=== PATIENT | male | born 1970 | race Caucasian/White ===

== ENCOUNTER 2023-12-02 10:11 | Emergency (ER) | payer OTHER ==
[~2023-12-02] VITALS: Ht 165.1 cm; Wt 90.7 kg
[2023-12-02 13:29] VITALS: BP 171/133
== END 2023-12-02 13:55 | disposition home or self-care (01) ==
LOC: ER 10:11
DX: F32.9 Major depressive disorder, single episode, unspecified (principal); F14.90 Cocaine use, unspecified, uncomplicated; F10.239 Alcohol dependence with withdrawal, unspecified; F41.9 Anxiety disorder, unspecified; F10.20 Alcohol dependence, uncomplicated; Z88.8 Allergy status to other drugs, medicaments and biological substances

== ENCOUNTER → 2024-01-01 | Outpatient (CLI) | payer OTHER ==
[~2024-01-01] MED LIST: ALBU90OI INH; CHLO25 PO; Crestor20 MG PO; EZET10 PO; FINA5 PO; HYDHCL25 PO; LEVOTHYROXINE100 M10 PO; ONDA4ODT MM; PANT40 PO; REXULTI1 MG PO
[2024-01-01 15:56] LABS: Adenovirus F 40/41 Not Detected (NOT DETECT); Astrovirus Not Detected (NOT DETECT); Campylobacter Sp Not Detected (NOT DETECT); Cryptosporidium Not Detected (NOT DETECT); Cyclospora Cayetanensis Not Detected (NOT DETECT); E. Coli O157 Not Detected (NOT DETECT); Entamoeba Histolytica Not Detected (NOT DETECT); Enteroaggregative E. coli-EAEC Not Detected (NOT DETECT); Enteropathogenic E. coli-EPEC Not Detected (NOT DETECT); Enterotoxigenic E. coli-ETEC Not Detected (NOT DETECT); Giardia Lamblia Not Detected (NOT DETECT); Norovirus GI/GII Not Detected (NOT DETECT); Plesiomonas Shigelloides Not Detected (NOT DETECT); Rotavirus A Not Detected (NOT DETECT); Salmonella Sp Not Detected (NOT DETECT); Sapovirus Not Detected (NOT DETECT); Shiga Toxin-prod E. coli-STEC Not Detected (NOT DETECT); Shigella/Enteroin E. coli-EIEC Not Detected (NOT DETECT); Vibrio Cholerae Not Detected (NOT DETECT); Vibrio Sp Not Detected (NOT DETECT); Yersinia Enterocolitica Not Detected (NOT DETECT)
[2024-01-03 17:51] LABS: CALPROTECTIN,FECAL 58 ug/g (<=49)
== END ==
LOC: LAB SHORT 02:45 → LAB 02:45
PROVIDERS: Physician Assistant Medical
DX: R10.32 Left lower quadrant pain (principal); R19.5 Other fecal abnormalities
CPT/HCPCS: 83993; 87507

== ENCOUNTER 2024-01-14 13:22 | Inpatient (IN) | payer OTHER ==
[~2024-01-14] VITALS: Ht 165.1 cm; Wt 88.7 kg
[2024-01-14] MEDS ORDERED: Ondansetron HCl 2 MG / ML 2ML Vial IV ONE (13:35)
[2024-01-14] MEDS ORDERED: Diazepam 5 MG / ML 2ML SYR IV ONE ×3 (13:35→16:10)
[2024-01-14] MEDS ORDERED: PHENobarbitaL sodium 130 MG/ML VIAL IV ONE ×3 (13:35→16:10)
[2024-01-14] MEDS ORDERED: NS 1,000 ML IV SCH ×2 (13:35→16:10)
[2024-01-14] MEDS ORDERED: EZET10 PO (13:43)
[2024-01-14] MEDS ORDERED: FINA5 PO (13:43)
[2024-01-14 13:49] LABS: BASOPHILS ABSOLUTE AUTO 0.11 K/mm3 (0.00-0.23); BASOPHILS PERCENT AUTO 1 % (0-2); EOSINOPHILS PERCENT AUTO 0 % (0-6); Hematocrit 47.1 % (37.0-53.0); Hemoglobin 16.6 g/dL (13.5-17.5); IMMATURE GRAN ABSOLUTE AUTO 0.02 K/mm3 (0.00-0.10); IMMATURE GRAN PERCENT AUTO 0 % (0-1); LYMPHOCYTES ABSOLUTE AUTO 0.49 K/mm3 (0.84-5.20); LYMPHOCYTES PERCENT AUTO 5 % (21-46); MONOCYTES ABSOLUTE AUTO 0.65 K/mm3 (0.16-1.47); MONOCYTES PERCENT AUTO 7 % (4-13); Mean Corpuscular HGB 32.5 pg (26.0-34.0); Mean Corpuscular HGB Conc 35.2 g/dL (31.5-36.5); Mean Corpuscular Volume 92 fL (80-100); Mean Platelet Volume 9.6 fL (9.1-12.4); NEUTROPHILS ABSOLUTE AUTO 7.92 K/mm3 (1.96-9.15); NEUTROPHILS PERCENT AUTO 86 % (41-73); Platelet Count 273 K/mm3 (150-400); RDW Coefficient Variation 13.4 % (11.7-14.2); RDW Standard Deviation 46.1 fL (35.1-46.3); Red Blood Cell Count 5.11 M/mm3 (4.30-5.90); White Blood Cell Count 9.19 K/mm3 (4.00-11.30)
[2024-01-14 14:14] LABS: Albumin, Blood 4.1 g/dL (3.4-5.0); Bilirubin, Total 0.7 mg/dL (0.1-1.0); Bun/Creatinine Ratio 12.6 (12.0-20.0); Creatinine, Blood 0.64 mg/dL (0.60-1.20); Globulin, Blood 4.1 g/dL (2.2-4.0); Potassium, Blood 3.4 mmol/L (3.5-5.5); Total Protein, Blood 8.2 g/dL (6.4-8.2)
[2024-01-14] MEDS ORDERED: Etomidate 2MG / ML 10ML Vial XX ONE (17:02)
[2024-01-14] MEDS ORDERED: Rocuronium Bromide 10 MG/ML 5ML Injection IV ONE ×2 (17:02→22:50)
[2024-01-14] MEDS ORDERED: Lactated Ringer's 1,000 ML IV SCH (17:05)
[2024-01-14] MEDS ORDERED: Ondansetron HCl 2 MG / ML 2ML Vial IV PRN (17:10)
[2024-01-14] MEDS ORDERED: Metoclopramide HCl 5MG / ML 2ML Vial IV PRN (17:10)
[2024-01-14] MEDS ORDERED: LORazepam 2 MG/ML 1ML Injection IV PRN ×2 (17:10→17:15)
[2024-01-14] MEDS ORDERED: ChlordiazePOXIDE 25 MG Cap PO PRN ×2 (17:10)
[2024-01-14] MEDS ORDERED: Potassium Chloride 20 MEQ TabCR PO ONE (17:10)
[2024-01-14] MEDS ORDERED: Albuterol HFA200 ACT/6.7 GM INH INH PRN (17:20)
[2024-01-14] MEDS ORDERED: Magnesium Sulf 2 GM/Water 50ML 50 ML IV ONE (17:20)
[2024-01-14] MEDS ORDERED: Labetalol HCL 5 MG/ML 4ML Injection (Single Dose) IV PRN (17:20)
[2024-01-14] MEDS ORDERED: Folic Acid 1 MG in NS 50 ML IV SCH (18:00)
[2024-01-14] MEDS ORDERED: Lisinopril 5 MG Tab PO SCH (18:00)
[2024-01-14 18:13] VITALS: BP 189/24
[2024-01-14] MEDS ORDERED: NS 250 ML IV PRN (18:25)
[2024-01-14] MEDS ORDERED: Thiamine HCl 100 MG in NS 50 ML IV SCH (18:30)
--- NOTE | 2024-01-14 19:21 | NUR ---
PCU ADMIT / END OF SHIFT PT BROUGHT TO PCU-11 BY GIANNA FROM ER SHORTLY AFTER 1800. PT ONLY ABLE TO REMAIN AWAKE FOR SHORT TIME, PT WILL BE MIDSENTENCE THEN FALL ASLEEP SNORING. PT BP ELEVATED, MEDICATED W/ PRN IV LABETALOL PER EMAR. SPO2 > 92% ON 4L NC. MONITOR SHOWING SR-ST, HR 90s-110s. PT DISORIENTED TO DATE, OTHERWISE ORIENTED. PT RESTLESS IN BED & FIDGETING W/ CORDS/LINES WHEN AWAKE. PT W/ PROFUSE SWEATING FROM FOREHEAD & BODY. ARMS & HANDS NOTED TO BE TREMULOUS, COOL & CLAMMY. CBG CHECKED. PT C/O NAUSEA. PT MEDICATED W/ PRN IV ATIVAN & PO LIBRIUM PER EMAR/CIWA PROTOCOL. PT NOT CONFIRMING ALCOHOL CONSUMPTION W/ THIS NURSE, BUT RESPONDING WITH "I DRINK TOO MUCH." PT FURTHER STATING "I KNOW I HAVE TO STOP DRINKING. I HAVE GOTTEN TO A POINT WHERE I'M NOT FUNCTIONAL. I KNOW I HAVE TO STOP." PT FURTHER STATES "I'VE WITHDRAWN BEFORE, BUT NEVER THIS BAD. I'M SO SORRY. I'M SO EMBARASSED. THANK YOU FOR EVERYTHING. I DON'T TAKE ANYTHING FOR GRANTED." PT DENIES HAVING ANY FRIENDS OR FAMILY, BUT THEN STATES HAVING A BROTHER HE JUST GOT IN CONTACT WITH AFTER YEARS OF NO CONTACT. PT NOW SLEEPING IN , BED ALARM ON. REPORT GIVEN TO GLOST KILN OPERATOR RN.
[2024-01-14 20:01] VITALS: BP 177/123
[2024-01-14 20:22] LABS: U Amphetamine Screen Not Detected; U Barbituate Screen DETECTED; U Benzodiazapine Screen DETECTED; U Buprenorphine Screen DETECTED; U Cannabinoids Screen Not Detected; U Cocaine Screen Not Detected; U Methadone Screen Not Detected; U Methamphetamine Screen Not Detected; U Opiates Screen Not Detected; U Oxycodone Screen Not Detected; U Phencyclidine Screen Not Detected
[2024-01-14] MEDS ORDERED: Ezetimibe 10 MG Tab PO SCH (21:00)
[2024-01-14 23:43] VITALS: BP 136/115
[2024-01-15] VITALS (21 sets, daily range): BP systolic 82–150; BP diastolic 62–115
[2024-01-15 05:06] LABS: Albumin, Blood 3.6 g/dL (3.4-5.0); Bilirubin, Total 0.9 mg/dL (0.1-1.0); Bun/Creatinine Ratio 11.8 (12.0-20.0); Calcium, Blood 8.7 mg/dL (8.5-10.1); Creatinine, Blood 0.93 mg/dL (0.60-1.20); Globulin, Blood 3.5 g/dL (2.2-4.0); Potassium, Blood 3.8 mmol/L (3.5-5.5); Total Protein, Blood 7.1 g/dL (6.4-8.2)
[2024-01-15] MEDS ORDERED: Etomidate 2MG / ML 10ML Vial IV ONE (05:46)
[2024-01-15] MEDS ORDERED: SuccINYLCHOLINE Chloride 100 MG/5 ML 5MLSYR IV ONE (05:46)
[2024-01-15] MEDS ORDERED: Rocuronium Bromide 10 MG/ML 5ML Injection IV ONE (05:46)
[2024-01-15] MEDS ORDERED: Levothyroxine Sodium 0.1 MG Tab PO SCH (06:00)
[2024-01-15] MEDS ORDERED: Pantoprazole Sodium 40 MG Tab PO SCH (06:00)
--- NOTE | 2024-01-15 06:00 | NUR ---
SHIFT SUMMARY PATIENT ALERT AND ORIENTED X3, UNSURE OF DATE. PATIENT DENIES HAVING ANY PAIN OR SHORTNESS OF BREATH. WAS MEDICATED PER EMAR FOR CIWA OF 19 AT THE BEGINNING OF SHIFT AND SLEPT ALL NIGHT, WAKING EASILY TO VOICE. WHEN PATIENT IS AWAKE HE IS VERY DROWSY, FALLING ASLEEP IN THE MIDDLE OF TRYING TO DO THINGS SUCH TALK OR DRINKING WATER. PATIENT HAS BEEN HAVING DIFFICULTY URINATING AND HAS TO STRAIN TO INITIATE A STREAM. SITTER IN PLACE WITH THE PATIENT DUE TO THAT WHEN HE IS AWAKE, HE IS IMPULSIVE AND TRIES TO GET OUT OF BED ON HIS OWN. PATIENT IS CURRENTLY ON 6 LITERS O2 VIA NC, SPO2 >90%. VITAL SIGNS STABLE. WILL CONTINUE TO MONITOR. CALL LIGHT WITHIN REACH.
[2024-01-15] MEDS ORDERED: Enoxaparin 40 MG/0.4 ML SYR SC SCH (09:00)
[2024-01-15] MEDS ORDERED: Finasteride 5 MG Tab PO SCH (09:00)
[2024-01-15] MEDS ORDERED: Rosuvastatin Calcium 10 MG Tab PO SCH (09:00)
[2024-01-15] MEDS ORDERED: Albuterol 2.5 MG/3 ML VIAL INH SCH (16:00)
--- NOTE | 2024-01-15 16:05 | NUR ---
SHIFT SUMMARY: PATIENT IS A&OX3, HE IS FORGETFUL OF THE DATE. PATIENT IS CURRENTLY ON CIWA PROTOCOL AND HAS BEEN SCORING BETWEEN 11-13 THROUGHOUT SHIFT. PATIENT WAS MEDICATED WITH PO LIBRIUM AND IV ATIVAN PER CIWA EMAR ORDERS AND CIWA SCORING. PATIENT AWAKENS EASILY TO VERBAL STIMULI BUT IS VERY DROWSY AND FALLS ASLEEP IN THE MIDDLE OF CONVERSATION. AVASURE CAMERA HAS BEEN PLACED IN THE PATIENTS ROOM A SAFETY PRECAUTION DUE TO PATIENT BEING AT TIMES IMPULSIVE WHEN ABRUPTLY WOKEN UP. PATIENT IS A SBA WHEN STANDING TO USE THE URNAL. HE IS VOIDING AND IS TOLERATING PO INTAKE. PATIENT HAS A HX OF YVROSE BUT IS NOT COMPLIANT WITH CPAP, SO HE IS CURRENTLY ON 6L OF OXYGEN NC WITH >90% OXYGEN SATS. PATIENT HAS AN EXPIRATORY WHEEZE BUT HAS SCHEDULED NEBULIZER ALBUTEROL PER EMAR. PATIENT IS LAYING IN BED WITH CALL LIGHT IN REACH AND AVASURE CAMERA MONITOR IN PLACE.
[2024-01-15] MEDS ORDERED: Metoprolol Tartrate 25 MG Tab PO SCH (21:00)
--- NOTE | 2024-01-15 21:05 | NUR ---
ASSUMED CARE OF PT. PT TO ICU 5 FROM PCU. HE IS ABLE TO RESPOND TO HIS NAME BUT ONLY IN A STARTLE AND THEN GOES LIMB AGAIN. HE IS ON TH BIPAP AND ABG IS ORDERED. PT TACHYCARDIC AND RR 8-12. PT SAO2 100%. PT HAS A DISTENDED ABD. CLEAR LUNG SOUNDS T/O. NO NOTIBLE EDEMA AT THIS TIME. SKIN WARM, DRY ON CONTACT. PT HAS ONE PERIPHERAL IV TO RIGHT FA. PLAN TO PLACE POWERGLIDE ST TO RIGHT UPPER ARM. DR DICKERSON AND DR TALBERT CALLED TO COME TO BEDSIDE D/T PT BEING OBTUNDED AND NOT ABLE TO MAINTAIN SAFE AIRWAY.
[2024-01-15 21:19] LABS: PCO2 Arterial 64.2 mmHg (35-45); PO2 Arterial 240 mmHg (80-100)
[2024-01-15 21:20] LABS: pH Blood Arterial 7.26 (7.35-7.45)
--- NOTE | 2024-01-15 21:24 | NUR ---
ICU TRANSFER DURING INITIAL ASSESSMENT AT 1919 PATIENT WAS DROWSY, WAKING UP AND TRYING TO GET OUT OF BED BUT FALLING ASLEEP WHILE DOING SO. TOOTH CUTTER CONTACT [facility], HAD SCORED PATIENT A CIWA OF 18, MEDICATED PER EMAR. PATIENT WAS ON 6 LITERS O2 VIA NASAL CANULA. AROUND 1999 PATIENT BEGAN DESATING AND WAS NOTED TO BE HAVING APNIC EPISODES. TOOTH CUTTER CONTACT WHEEL AND RT NOTIFIED, PATIENT PLACED ON SIMPLE MASK AND OXYGEN INCREASED TO 15 LPM. PATIENT CONTINUED TO HAVE APNIC EPISODES REQUIRING STERNAL RUB TO MAINTAIN SPO2 AT 90%. CALLED RT TO BEDSIDE WHO ATTEMPTED TO PLACE PATIENT ON A CPAP AT FIRST AND WAS THEN TRANSFERRED TO BIPAP. TOOTH CUTTER CONTACT [facility], NOTIFIED NICKO DICKERSON OF THE SITUATION. ORDER OBTAINED FOR BIPAP, AND NICKO VORA ORDERED FOR THE PATIENT TO BE TRANSFERRED TO ICU FOR PRECIDEX.
--- NOTE | 2024-01-15 21:37 | NUR ---
INTUBATION: 20 ETOMIDATE @ 2142, 50 ROCC @ 2142. INTUBATED @ 2042, 22CM @ TEETH, 8.5. POSITIVE COLOR CHANGE AND DECREASED BREATH SOUNDS ON LEFT . BP 125/90, SPO2 100%.
[2024-01-15] MEDS ORDERED: propofoL 100 ML IV ONE (21:47)
[2024-01-15] MEDS ORDERED: propofoL 100 ML IV SCH (21:50)
[2024-01-15] MEDS ORDERED: Albuterol 2.5 MG/3 ML VIAL INH PRN (22:05)
[2024-01-15] MEDS ORDERED: Ipratropium/Albuterol SulF 2.5-0.5MG/3 ML Amp INH SCH (22:05)
[2024-01-15 22:15] LABS: Source, Urine Foley catheter
--- NOTE | 2024-01-15 22:16 | NUR ---
POST INTUBATION. CHEST X-RAY DONE .. ETT PULLED BACK TO 24 AT TEETH. OG PUSHED DEEPER.. DOWN TO 3RD BLACK LINE ON OG TUBING. GLASS PLACED .. URINE UA SENT.. URINE YELLOW IN COLOR. PT AFEBRILE TEMP 96.6. VENT SETTING AC/VC 20, 450, 50% PEEP 10... RESTRAINTS ABLIDE TO UPPER WRIST BILAT. AT 2200. D/T INTUBATION.
[2024-01-15 22:26] LABS: Appearance, Urine Clear (Clear); Bilirubin, Urine Neg (Neg); Blood, Urine Neg (Neg); Color, Urine Yellow (P-Yellow); Glucose Qualitative, Urine Neg (Neg); Ketones, Urine Neg (Neg); Leukocyte Esterase, Urine Neg (Neg); Nitrite, Urine Neg (Neg); Protein, Urine 1+ (Neg); Specific Gravity, Urine 1.015 (1.003-1.022); Urobilinogen, Urine NORM (Normal)
[2024-01-16] VITALS (59 sets, daily range): BP systolic 75–152; BP diastolic 48–104
[2024-01-16] MEDS ORDERED: Hydrogen Peroxide 1.5 % Solution MT SCH
--- NOTE | 2024-01-16 02:33 | NUR ---
UPDATE PT'S BP MAP HAS HELD AT 70'S TILL 0200. MAP HAS DROPPED TO 57. PT'S OUT PUT DROPPED TO 20 CC FOR LAST [address] TALBERT AND HE ORDERED AN LR BOLUS OF 500CC. IF MAP STAYS BELOW 65 I AM INSTRUCTED TO CALL DR TALBERT BACK FOR FURTHER ORDERS.
[2024-01-16] MEDS ORDERED: Lactated Ringer's 500 ML IV ONE (02:35)
[2024-01-16 04:01] LABS: BASOPHILS ABSOLUTE AUTO 0.07 K/mm3 (0.00-0.23); BASOPHILS PERCENT AUTO 1 % (0-2); EOSINOPHILS ABSOLUTE AUTO 0.16 K/mm3 (0.00-0.68); EOSINOPHILS PERCENT AUTO 2 % (0-6); Hematocrit 35.3 % (37.0-53.0); Hemoglobin 12.2 g/dL (13.5-17.5); IMMATURE GRAN ABSOLUTE AUTO 0.03 K/mm3 (0.00-0.10); IMMATURE GRAN PERCENT AUTO 0 % (0-1); LYMPHOCYTES ABSOLUTE AUTO 0.49 K/mm3 (0.84-5.20); LYMPHOCYTES PERCENT AUTO 6 % (21-46); MONOCYTES ABSOLUTE AUTO 0.46 K/mm3 (0.16-1.47); MONOCYTES PERCENT AUTO 5 % (4-13); Mean Corpuscular HGB 33.4 pg (26.0-34.0); Mean Corpuscular HGB Conc 34.6 g/dL (31.5-36.5); NEUTROPHILS ABSOLUTE AUTO 7.65 K/mm3 (1.96-9.15); NEUTROPHILS PERCENT AUTO 86 % (41-73); NRBC ABSOLUTE 0.06 K/mm3 (0.00-0.02); NRBC Auto 0.7 /100 WBC (0.0-0.2); RDW Coefficient Variation 13.7 % (11.7-14.2); RDW Standard Deviation 48.4 fL (35.1-46.3); Red Blood Cell Count 3.65 M/mm3 (4.30-5.90); White Blood Cell Count 8.86 K/mm3 (4.00-11.30)
[2024-01-16 04:02] LABS: Mean Corpuscular Volume 97 fL (80-100)
[2024-01-16 04:04] LABS: Albumin, Blood 2.6 g/dL (3.4-5.0); Albumin/Globulin Ratio 0.9 (0.8-1.8); Bilirubin, Total 1.2 mg/dL (0.1-1.0); Bun/Creatinine Ratio 19.4 (12.0-20.0); Calcium, Blood 8.6 mg/dL (8.5-10.1); Creatinine, Blood 0.82 mg/dL (0.60-1.20); Globulin, Blood 2.9 g/dL (2.2-4.0); Magnesium, Blood 1.2 mg/dL (1.6-2.4); Potassium, Blood 4.6 mmol/L (3.5-5.5); Total Protein, Blood 5.5 g/dL (6.4-8.2)
[2024-01-16 04:12] LABS: Platelet Count 139 K/mm3 (150-400)
[2024-01-16 04:33] LABS: PCO2 Arterial 40.1 mmHg (35-45); PO2 Arterial 58.4 mmHg (80-100); pH Blood Arterial 7.45 (7.35-7.45)
--- NOTE | 2024-01-16 05:17 | NUR ---
END OF SHIFT SUMMARY PT HAD TO BE TRANSFER TO ICU FROM PCU [facility]. HE WAS INTUBATED WITH AN 8.5ETT 24 AT TEETH. OG PLACED AND PUT TO LOW INTERMIT. SUCTION. PT IS ON AC/VC MODE 20/450/8/55%. PT IS SEDATED WITH PROPOFOL 20MCG/KG/MIN AND PRECEDEX AT 0.4MCG/KG. PT ALSO HAS LR AT 150/HR. PT HAD A LOW BP TONIGHT AND A BOLUS OF 500MLS OF LR WAS GIVEN. BP MAP GREATER THAN 65 CURRENTLY. PT HAS ONE PIV 20G AND ONE POWERGLIDE ST TO RIGHT UPPER ARM 18G/10CM. PT HAS A GLASS TO GRAVITY WITH URINE THAT STARTED OFF YELLOW AND IS NOW MORE ORANGE IN COLOR. PT HAS REMAINED AFEBRILE T/O THE SHIFT. PT HAD URINE AND SPUTUM CULTURES SENT TO LAB [facility]. SPUTUM IS NOW THICK CREAMY IN COLOR AND COPIOUS AMOUNT. PT BECOMES FOR STIFF AND RIGID WHEN TURNING HIM SIDE TO SIDE. NO SKIN CONCERNS AT THIS TIME. PT FRIEND CHEKO WILL BE COMING IN TODAY AND WILL BRING THE PAPERWORK FOR BEING THE POA FOR THE PT. PT REMAINS RESTRAINED AT THIS TIME BILAT UPPER EXTREM. WHILE SEDATED AND ON THE VENTILATOR.
[2024-01-16] MEDS ORDERED: Pantoprazole Sodium 40 MG Injection IV SCH (06:20)
[2024-01-16] MEDS ORDERED: Magnesium Sulf 2 GM/Water 50ML 50 ML IV SCH (08:00)
[2024-01-16] MEDS ORDERED: Cetylpyridinium Chloride 1 EA MISC MT SCH (08:00)
--- NOTE | 2024-01-16 08:15 | NUR ---
ASSUMED CARE BEDSIDE REPORT FROM GERARDO MOFFETT AT 0700. PT INTUBATED AND SEDATED. VENT SETTINGS AC/VC 20/450/8/50%. LUNGS CLEAR. SCANT SECRETIONS FROM ETT. PROPOFOL AND PRECEDEX GTT FOR SEDATION, RASS -4 UNLESS DISTURBED c CARE, INCREASES TO +1. RESTS WHEN UNDISTURBED. +COUGH/GAG REFLEX. PULLS AGAINST RESTRAINTS WHEN AGITATED. SR, RATE 80'S. BP STABLE. PT P/W/D. AFEBRILE. ABD DISTENDED, BT X 4. OGT CLAMPED. GLASS PATENT, DRAINING CLEAR TAMEKA URINE TO GRAVITY. POWERGLIDE TO RUE, DRESSING C/D/I. PIV X 1. WILL CONTINUE PLAN OF CARE.
[2024-01-16] MEDS ORDERED: Finasteride 5 MG Tab PT SCH (09:00)
[2024-01-16] MEDS ORDERED: Sodium Phosphate 30 MM in Dextrose 5% 500 ML IV ONE (09:20)
[2024-01-16] MEDS ORDERED: Magnesium Hydroxide Conc 10 ML UDC PT PRN (13:05)
[2024-01-16] MEDS ORDERED: Docusate Sodium 100 MG UDC PT PRN (13:05)
[2024-01-16] MEDS ORDERED: Bisacodyl 10 MG Supp PR PRN (13:05)
[2024-01-16] MEDS ORDERED: Protein Supplement 30 ML UD PT SCH (16:00)
--- NOTE | 2024-01-16 17:30 | NUR ---
SHIFT SUMMARY PT REMAINS INTUBATED AND SEDATED. NO ACUTE CHANGES THIS SHIFT. VENT SETTINGS AC/VC 20/450/7/45%. LUNGS CLEAR. SMALL AMOUNT OF YELLOW/KERR SECRETIONS FROM ETT. PROPOFOL AND PRECEDEX GTT FOR SEDATION, ATIVAN GIVEN PRN. RASS -4 WHEN UNDISTURBED, PT BECOMES AGITATED, PULLING ON RESTRAINTS, STIFF c CARE. WITHDRAWS FROM PAINFUL STIMULI. DOES NOT FOLLOW COMMANDS. SR, RATE 70'S. BP STABLE. TUBE FEEDS STARTED VIA OGT THIS SHIFT, VITAL AF AT GOAL RATE OF 30 ML/HR c 30 ML FLUSH q4 HR. ABD FIRM, DISTENDED, BT X 4. UNCHANGED FROM AM ASSESSMENT. GLASS PATENT, DRAINING CLEAR TAMEKA URINE TO GRAVITY, 1550 OUT THIS SHIFT. UPDATED BROTHER, SURINDER, AND FRIEND, CHEKO BY PHONE. WILL CONTINUE PLAN OF CARE UNTIL REPORT TO ONCOMING NURSE.
--- NOTE | 2024-01-16 19:30 | NUR ---
ASSUMED CARE OF PATIENT. PT IS INTUBATED AND SEDATED WITH PROPOFOL AT 20MCG/KG/MIN AND PRECEDEX AT 0.6MCG/KG. PT HAS LACTATED RINGERS GOING AT 50ML/HR. VENT SETTINGS ARE AC/VC 20/450/7/45% AND SAO2 IS AT 93% AT THIS TIME. PT RR 20 AND ENTITLE CO2 IS AT 33. PT HAS 2 PIV TO RIGHT LOWER FOREARM AND LEFT LOWER FOREARM. PT HAS A POWERGLIDE ST 18G/10CM TO RIGHT UPPER ARM. PT HAS CLEAR LUNG SOUNDS T/O, ABDOMEN IS VERY DISTENDED AND TAUGHT. PT HAS TUBE FEEDING VITAL AF GOING INTO OG AT 30ML/HR WTIH 30ML FLUSH Q 4 HR. PT HAS A GLASS 16 FR DRAINING URINE TO GRAVITY, DARK YELLOW IN COLOR. SKIN IS WARM AND DRY. PT REMAINS RESTRAINED AT THIS TIME D/T HIM WAKING VERY EASILY AND THEN PULLING AT RESTRAINTS AND BECOMING VERY RESTLESS WITH JUST THE SLIGHTEST OF STIMULI.
[2024-01-17] VITALS (59 sets, daily range): BP systolic 116–172; BP diastolic 76–139
[2024-01-17 04:05] LABS: Bun/Creatinine Ratio 14.6 (12.0-20.0); Calcium, Blood 8.8 mg/dL (8.5-10.1); Creatinine, Blood 0.68 mg/dL (0.60-1.20); Magnesium, Blood 2.1 mg/dL (1.6-2.4); Phosphorus, Blood 2.8 mg/dL (2.5-4.9); Potassium, Blood 3.2 mmol/L (3.5-5.5)
--- NOTE | 2024-01-17 04:34 | NUR ---
UPDATE PT HAS NEEDED 2MG OF ATIVAN 3 TIMES TONIGHT FOR HIGH CIWA WITH DIAPHORETIC, AGGITATION ON VENT, PULLING AT RESTRAINTS, FIGHTING CARE WHEN TURNING PT, BP ELEVATED 150/110'S.. RR 25-33. WHEN HE IS NOT HAVING ACTIVITY HIS RASS IS -3 BUT WITH ACTIVITY HIS RASS IS +2.. HE HAS HAD GOOD OUTPUT TONIGHT TOTAL THUS FAR OF 1100CC. PT REMAINS ON PROPOFOL 30MCG AND PRECEDEX 0.6MCG/KG/HR.
[2024-01-17] MEDS ORDERED: Potassium Chloride 20 MEQ/15 ML UDC PO ONE (05:05)
--- NOTE | 2024-01-17 06:07 | NUR ---
END OF SHIFT NOTE PT HAS HAD A RESTLESS NIGHT WHEN GETTING TURNED SIDE TO SIDE IN BED. PT WAKES EASILY RASS-2 TO +2 . PT HAS REMAINED ON THE VENT 20/450/7/45% WITH SAO2 94%. HIS BP IS HIGHER WHEN HE IS STIMULATED FOR TURNES. PROPOFOL HS BEEN INCREASED TO 40MCG/KG/MIN AND PRECEDEX REMAINS AT 0.6MCG/KG/HR. PT HAS RECEIVED ATIVAN T/O THE NIGHT FOR THE AGITATION AND RESTLESSNESS. HE HAS ALSO BEEN INTERMITTENTLY DIAPHORETIC/CLAMMY AND BEEN WASHED DOWN WITH COOL CLOTH. HIS TEMP REMAINS AFEBRILE. HIS URINE OUTPUT HAS BEEN GOOD ALMOST 1200ML OUT OVER NIGHT. TO HAS THE TUBEFEEDING GOING AT 30CC/HR WITH 30CC FREE WATER FLUSHES X 4. ABD REMAINS DISTENDED AND TAUGHT,NO BM AT THIS TIME. PT RECEIVED POTASSIUM DOWN OG THIS AM FOR K OF 3.2. PT ALSO REMAINS IN RESTRAINTS AT THIS TIME FOR VENT AND LINE SAFETY SINCE PT DOES NOT FOLLOW COMMANDS. WILL REPORT OFF TO NEXT SHIFT TO RESUME CARE.. HR.
--- NOTE | 2024-01-17 07:49 | NUR ---
ASSUMED CARE BEDSIDE REPORT FROM GERARDO MOFFETT AT 0700. PT INTUBATED AND SEDATED. VENT SETTINGS AC/VC 20/450/7/45%. LUNGS CLEAR. SMALL AMOUNT OF THICK YELLOW/KERR SECRETIONS FROM ETT. PROPOFOL AND PRECEDEX GTT FOR SEDATION, RASS -4, TITRATING PROPOFOL DOWN. PT GRIMACES c CARE, EXT BECOME STIFF AND PULLS ON RESTRAINTS, RETURNS TO REST WHEN UNDISTURBED. +COUGH/GAG REFLEX. SR, RATE 70'S. BP STABLE. PT WARM, AFEBRILE. DIAPHORETIC. ABD DISTENDED, FIRM, HYPOACTIVE BT, TUBE FEEDS VIA OGT AT GOAL 30 ML/HR c 30 ML FLUSH q4 HR. GLASS PATENT, DRAINING CLEAR YELLOW URINE TO GRAVITY. PIV X 2, POWERGLIDE TO RUE, DRESSINGS C/D/I. LR AT 50 ML/HR. WILL CONTINUE PLAN OF CARE.
[2024-01-17] MEDS ORDERED: Potassium Chloride 40 MEQ in NS 250 ML IV ONE (09:00)
[2024-01-17] MEDS ORDERED: Multivitamins-Minerals Liquid 15 ML Oral Syringe PT SCH (09:00)
[2024-01-17] MEDS ORDERED: Potassium Chl 20MEQ/Water100ML 100 ML IV STA (09:06)
[2024-01-17] MEDS ORDERED: Midazolam HCl 1MG / ML 2ML Vial IV PRN (09:45)
--- NOTE | 2024-01-17 11:30 | NUR ---
EXTUBATION PROPOFOL PLACED ON STANDBY, DR LUKE AT BEDSIDE. VENT CHANGED TO SPONT 7/7/45%. TV 800'S. RR 20-30'S. PT AGITATED WHEN CARE PROVIDED. RESTS WHEN UNDISTURBED. PT DOES NOT FOLLOW ANY COMMANDS OTHER THAN NODS ONCE WHEN ASKED IF HE WANTS ETT REMOVED. EXTUBATED AT 0910. INCREASING O2 REQUIREMENTS. RT PLACED ON MASKS AT 15L. RR 26-36. LUNGS COARSE ON RIGHT SIDE. UPPER AIRWAY RATTLING. ENCOURAGED COUGHING, WEAK COUGH. PT BECOMING INCREASINGLY AGITATED, RESTLESS IN BED. NOT REDIRECTABLE. MEDICATED c PRN c MINIMAL RELIEF. O2 SATS DECREASED TO MID 80'S. DR LUKE AT BEDSIDE. DECISION MADE TO REINTUBATE.
--- NOTE | 2024-01-17 11:30 | NUR ---
INTUBATION 1130- Dr Obrien at bedside, preparing for intubation. 1132- 30 mg etomidate given 1133- 100 mg rocuronium given. 1134- Successful intubation. 8.0 ETT, placed 25 cm at teeth. Propofol started at 20 mcg/kg/min. 1138- Connected to ventilator ACVC 20/450/10/100%. SpO2 86. ETCO2 33.
[2024-01-17] MEDS ORDERED: Furosemide 10 MG/ML 4ML Vial IV ONE (11:55)
[2024-01-17] MEDS ORDERED: CefTRIAXone Sodium 1,000 MG in NS 100 ML IV SCH (12:00)
[2024-01-17] MEDS ORDERED: MethylPREDNISolone Sod Succ 40 MG VIAL IV SCH (12:00)
[2024-01-17] MEDS ORDERED: Azithromycin 500 MG in NS 250 ML IV ONE (12:00)
[2024-01-17 12:34] LABS: PCO2 Arterial 39 mmHg (35-45); PO2 Arterial 62 mmHg (80-100); pH Blood Arterial 7.45 (7.35-7.45)
[2024-01-17 15:04] LABS: Bun/Creatinine Ratio 16.9 (12.0-20.0); Calcium, Blood 9.1 mg/dL (8.5-10.1); Creatinine, Blood 0.71 mg/dL (0.60-1.20); Potassium, Blood 3.7 mmol/L (3.5-5.5)
[2024-01-17] MEDS ORDERED: Midazolam HCL 50 MG in NS 40 ML IV SCH (15:55)
--- NOTE | 2024-01-17 17:52 | NUR ---
SHIFT SUMMARY PT EXTUBATED AND REINTUBATED THIS SHIFT. SEE PREVIOUS NOTES. VENT SETTINGS AC/VC 24/450/12/70%. LUNGS COARSE EARLIER IN SHIFT, NOW CLEAR. SCANT SECRETIONS FROM ETT. PROPOFOL, PRECEDEX, AND VERSED GTT INFUSING. RASS RANGES FROM +2- -4. GRIMACES TO PAINFUL STIMULI. DOES NOT FOLLOW DIRECTIONS. RETURNS TO REST WHEN UNDISTURBED. SR, RATE 70'S. HTN NOTED. PT VERY DIAPHORETIC. OGT CLAMPED, 600 ML YELLOW/BROWN EMESIS OUT. CT ABD COMPLETE THIS SHIFT. ABD FIRM, DISTENDED, HYPOACTIVE BT. GLASS PATENT, 2150 CLEAR YELLOW URINE OUT THIS SHIFT. FAMILY UPDATED ON REINTUBATION. WILL CONTINUE PLAN OF CARE UNTIL REPORT TO ONCOMING NURSE.
--- NOTE | 2024-01-17 20:00 | NUR ---
ASSUMED CARE OF PT AT 1900. REPORT RECEIVED AT BEDSIDE. PT PRESENTS IN BED. INTUBATED. PROPOFOL AT 30 MCG'S/KG/MIN, PRECEDEX AT 0.6 MCG'S/KG/HOUR VERSED DRIP AT 2 MG/HR. WILL REVIEW CHART AND PLAN OF CARE FOR THIS PT.
[2024-01-17] MEDS ORDERED: AmLODIPine Besylate 5 MG Tab PT ONE (22:15)
[2024-01-18] VITALS (91 sets, daily range): BP systolic 99–168; BP diastolic 63–119
--- NOTE | 2024-01-18 | NUR ---
CALL TO DR LUKE CONCERNING PT'S BLOOD PRESSURE REMAINING ELEVATED EVEN WITH SCHEDULED METOPROLOL AND PRN LABATELOL. ORDER RECEIVED FOR AMLODIPINE ONE TIME DOSE. THIS DOES LITTLE TO AFFECT BLOOD PRESSURES. FULL BEDBATH AND LINEN CHANGE DONE. PT INCREASED ON PROPOFOL AND VERSED DRIP TO HELP CALM PT. DID ADMINISTER 50 MG LIBRIUM. PT REMAINED VERY RESISTANT WITH BATH.
[2024-01-18] MEDS ORDERED: HydrALAZINE HCl 20 MG / ML 1ML Vial IV PRN (04:00)
--- NOTE | 2024-01-18 07:07 | NUR ---
CALL MADE TO DR ULRICH DURING NIGHT WITH CONCERN OF BLOOD PRESSURES. ORDER RECEIVED FOR HYDRALAZINE WHICH WAS GIVEN AND DID HELP BRING DOWN BLOOD PRESSURES. HAVE DECREASED FIO2 FROM 70 PERCENT TO 60 PERCENT. PT MAINTAINS > 90 PERCENT. OGT REMAINS TO LOW INTERMITTENT SUCTION. RETURN OF 300 ML GASTRIC FLUID. REPORT GIVEN TO BETINA REYES.
--- NOTE | 2024-01-18 11:01 | NUR ---
SHIFT ASSESSMENT BEDSIDE REPORT RECEIVED FROM BETINA SERVIN. PT INTUBATED AND SEDATED. INITIALLY SEDATED WITH PRECEDEX, PROPOFOL, AND VERSED. PRECEDEX NOW OFF, TITRATING VERSED, SEE FLOWSHEET. PT WITH RASS -2/-3. PT OPENING EYES & TRACKING NURSE, NOT FOLLOWING COMMANDS. VENT [id number]-78/450/60%/10 c SATS >90%. PT HYPERTENSIVE DURING NOC SHIFT, CURRENTLY 135/92 WITHOUT PRN ANTIHYPERTENSIVES. OGT CLAMPED NOW, WILL START TRICKLE FEEDS THIS AFTERNOON. NO BM THIS AM. GLASS CATH REMAINS PATENT, DRAINING TAMEKA URINE.
[2024-01-18] MEDS ORDERED: FentaNYL Citrate 50 MCG/ML 2 ML Injection IV PRN (14:10)
--- NOTE | 2024-01-18 17:37 | NUR ---
SHIFT SUMMARY PT REMAINS INTUBATED AND SEDATED. VENT SETTINGS AC/VC-24/450/50/10 c SATS >90%. SEDATED WITH PROPOFOL, VERSED, AND PRN FENTANYL c RASS OF -2/-3. PT CONTINUES TO HAVE MOMENTS OF VIGOROUSLY PULLING ON RESTRAINTS BUT NOT FOLLOWING COMMANDS. OGT TO LIS FOR HALF SHIFT, PT STARTED ON TRICKLE FEEDS THIS EVENING. GLASS CATH PATENT, DRAINING YELLOW URINE. PTS POA UPDATED VIA PHONE THIS AM BY THIS NURSE AND DR. LUKE.
[2024-01-19] VITALS (78 sets, daily range): BP systolic 101–159; BP diastolic 68–106
[2024-01-19 03:46] LABS: BASOPHILS ABSOLUTE AUTO 0.02 K/mm3 (0.00-0.23); BASOPHILS PERCENT AUTO 0 % (0-2); EOSINOPHILS PERCENT AUTO 0 % (0-6); Hematocrit 40.5 % (37.0-53.0); Hemoglobin 13.3 g/dL (13.5-17.5); IMMATURE GRAN ABSOLUTE AUTO 0.08 K/mm3 (0.00-0.10); IMMATURE GRAN PERCENT AUTO 1 % (0-1); LYMPHOCYTES ABSOLUTE AUTO 0.48 K/mm3 (0.84-5.20); LYMPHOCYTES PERCENT AUTO 4 % (21-46); MONOCYTES ABSOLUTE AUTO 1.06 K/mm3 (0.16-1.47); MONOCYTES PERCENT AUTO 9 % (4-13); Mean Corpuscular HGB 32.2 pg (26.0-34.0); Mean Corpuscular HGB Conc 32.8 g/dL (31.5-36.5); Mean Corpuscular Volume 98 fL (80-100); Mean Platelet Volume 10.1 fL (9.1-12.4); NEUTROPHILS ABSOLUTE AUTO 9.81 K/mm3 (1.96-9.15); NEUTROPHILS PERCENT AUTO 86 % (41-73); NRBC ABSOLUTE 0.02 K/mm3 (0.00-0.02); NRBC Auto 0.2 /100 WBC (0.0-0.2); Platelet Count 231 K/mm3 (150-400); RDW Standard Deviation 50.6 fL (35.1-46.3); Red Blood Cell Count 4.13 M/mm3 (4.30-5.90); White Blood Cell Count 11.45 K/mm3 (4.00-11.30)
[2024-01-19 04:05] LABS: Bun/Creatinine Ratio 25.4 (12.0-20.0); Calcium, Blood 9.5 mg/dL (8.5-10.1); Creatinine, Blood 0.67 mg/dL (0.60-1.20); Magnesium, Blood 2.2 mg/dL (1.6-2.4); Phosphorus, Blood 3.9 mg/dL (2.5-4.9); Potassium, Blood 3.6 mmol/L (3.5-5.5)
[2024-01-19] MEDS ORDERED: Midazolam HCL 100 MG in NS 80 ML IV SCH (04:30)
--- NOTE | 2024-01-19 06:00 | NUR ---
SHIFT SUMMARY NO ACUTE EVENTS T/O NIGHT. PT INTUBATED AND SEDATED. A/C 24/450/10/40%. RR 24-40. PROPOFOL AND VERSED GTT INFUSING. SEE FLOWSHEET FOR RATE AND TITRATIONS. PT RANGING FROM RASS -3 TO +2. PT WILL SIT UP IN BED, PULL RESTRAINTS, TWISTS SIDE TO SIDE AND FIGHTS VENT. OPENS EYES SPONT, WITH GAZE TO THE RIGHT, DOES NOT TRACK OR FOLLOW COMMANDS. TREMORS NOTED IN EXTREMITIES WHEN PT AGITATED AND PT DIAPHORETIC. LIBRIUM GIVEN X3 WITH DECREASED TREMORS NOTED AND PT LESS DIAPHORETIC. VSS. SR RATE 70'S. BP STABLE. OGT WITH TF AT 10ML/HR. GLASS PATENT AND DRAINING TO GRAVITY. WILL REPORT OFF TO ONCOMING RN.
--- NOTE | 2024-01-19 07:15 | NUR ---
ASSUMPTION OF CARE: ASSUMED CARE OF PATIENT. PATIENT INTUBATED AND SEDATED. VENT 8.0/25 CM AT THE TEETH AC/VC 24/450/10/40%. SPO2 >94%. LUNG SOUNDS CLEAR THROUGHOUT. MINIMAL WHITE/CLEAR SECRETIONS. BLOOD PRESSURES STABLE WITH SBPS IN THE 120S-130S. HR IN THE 60S-70S. GLASS IN PLACE AND DRAINING FREELY CLEAR DARK YELLOW URINE. TUBE FEED AT TRICKLE RATE OF 10 ML/HR. MODERATE DISTENTION NOTED.
[2024-01-19 17:56] LABS: pH Blood Venous 7.46 (7.34-7.37)
[2024-01-19 17:57] LABS: Base Excess Venous 3.5 mmol/L; Bicarbonate Venous 27.1 mmol/L (24.0-30.0); PCO2 Venous 38.6 mmHg (38-42)
--- NOTE | 2024-01-19 18:33 | NUR ---
SHIFT SUMMARY: NEURO: PATIENT OPENING TO PHYSICAL STIMULI AND AT TIMES TO VERBAL STIMULI. PATIENT MOVING EYES AROUND, BUT DOES NOT APPEAR TO BE TRACKING RN. PATIENT NOT FOLLOWING DIRECTIONS. PATIENT WITHDRAWING FROM PAINFUL STIMULI. PATIENT MOVING LIMBS WEAKLY AND MINIMALLY. AT TIMES PULLING AGAINST RESTRAINTS AND TENSING FULL BODY. VERSED AT 10 MG/HR FOR MOST OF THE SHIFT. PROPOFOL AT 30-40 MCG/KG/MIN THROUGHOUT THE SHIFT. RESPIRATORY: PATIENT DID NOT TOLERATE SEDATION INTERRUPTION WELL. PATIENT DID NOT TOLERATE THE VENT WELL WITHOUT SEDATION. SPO2 >96% THROUGHOUT THE SHIFT. END OF SHIFT SETTINGS AC/VC 20/450/8/40%. CARDIAC: VITALS STABLE THROUGHOUT THE SHIFT. MAPS >65. SBP IN THE 110S-120S. HR IN THE 60S-70S. PALPABLE PULSES IN ALL EXTREMITIES. GI/: ABDOMEN MODERATELY DISTENDED. MILDLY FIRM. PATIENT OPENS EYES WITH PALPATION. HYPOACTIVE BOWEL SOUNDS. BOWEL CARE INITIATED TODAY. GLASS IN PLACE AND DRAINING FREELY. URINE IS CLEAR, DARK YELLOW/TEA COLOR WITHOUT FOUL ODOR. PSYCHSOCIAL: ABLE TO UPDATE PATIENT'S BROTHER SURINDER ([phone]) AND FRIEND TOBY ([phone]).
--- NOTE | 2024-01-19 20:58 | NUR ---
PATIENT GRIMACING WITH ORAL CARE AND PULLING SLIGHTLY ON RESTRAINTS, IF LEFT ALONE, NO MOVEMENT. PROPOFOL REMAINS AT 40 MCG/KG/MIN AND VERSED AT 10 MG. ATTEMTPING TO WEAN VERSED SLOWLY.
[2024-01-19] MEDS ORDERED: Lactobacil 2-S.Thermo-Bifido 1 1 Cap PO SCH (21:00)
--- NOTE | 2024-01-19 21:53 | NUR ---
PATIENT AWAKENING AND PULLING AT RESTRAINTS AND COUGHING. SUCTIONED, BUT STILL PATIENT NOT CALMING DOWN, PATIENT REASSURED, BUT STILL CONTINUING TO TRY AND BITE TUBE, BREATHING RAPIDLY 32-40 BREATHS PER MINUTES. MEDICATED WITH ATIVAN IV AND PATIENT RELAXING SLOWLY.
--- NOTE | 2024-01-19 22:38 | NUR ---
PATIENT WITH EPISODE OF HYPOXIA, SUCTIONED AND REPOSITIONED, THEN BECOMING HYPOXIC WITH 02 SATS 89-885. RT CALLED TO BEDSIDE TO SEE PATIENT AND PUT PATIENT ON 1005 OXYGEN WITH NO IMPROVEMENT IN O2 SATS. SUCTIONED AND GIVEN BREATHING TREATMENT AND FIO2 INCREASED TO 50% WITH O2 SATS SLOWLY IMPROVING. CONTINUING TO MONITOR PATIENT.
[2024-01-20] VITALS (62 sets, daily range): BP systolic 98–138; BP diastolic 62–96
--- NOTE | 2024-01-20 00:40 | NUR ---
ADDENDUM NOTE, WHILE PATIENT WAS DESATTING, PROPOFOL INCREASED TO 50 MCG AND AWAITING PATIENT RESPONSE.
--- NOTE | 2024-01-20 03:47 | NUR ---
PATIENT TURNED FOR BATH AND LINEN CHANGE, DESATTING TO 76%. PLACED ON 100% FOR 2 CYCLES AND RT CALLED. GIVEN BREATHING TREATMENT, AND PEEP INCREASED TO 10.
[2024-01-20 04:12] LABS: BASOPHILS ABSOLUTE AUTO 0.02 K/mm3 (0.00-0.23); BASOPHILS PERCENT AUTO 0 % (0-2); EOSINOPHILS PERCENT AUTO 0 % (0-6); Hematocrit 39.3 % (37.0-53.0); IMMATURE GRAN ABSOLUTE AUTO 0.18 K/mm3 (0.00-0.10); IMMATURE GRAN PERCENT AUTO 2 % (0-1); LYMPHOCYTES ABSOLUTE AUTO 0.57 K/mm3 (0.84-5.20); LYMPHOCYTES PERCENT AUTO 6 % (21-46); MONOCYTES ABSOLUTE AUTO 1.61 K/mm3 (0.16-1.47); MONOCYTES PERCENT AUTO 16 % (4-13); Mean Corpuscular HGB 32.6 pg (26.0-34.0); Mean Corpuscular HGB Conc 33.1 g/dL (31.5-36.5); Mean Corpuscular Volume 99 fL (80-100); Mean Platelet Volume 10.1 fL (9.1-12.4); NEUTROPHILS ABSOLUTE AUTO 7.43 K/mm3 (1.96-9.15); NEUTROPHILS PERCENT AUTO 76 % (41-73); NRBC ABSOLUTE 0.12 K/mm3 (0.00-0.02); NRBC Auto 1.2 /100 WBC (0.0-0.2); Platelet Count 239 K/mm3 (150-400); RDW Coefficient Variation 14.5 % (11.7-14.2); RDW Standard Deviation 51.8 fL (35.1-46.3); Red Blood Cell Count 3.99 M/mm3 (4.30-5.90); White Blood Cell Count 9.81 K/mm3 (4.00-11.30)
[2024-01-20 04:34] LABS: Calcium, Blood 8.6 mg/dL (8.5-10.1); Creatinine, Blood 0.63 mg/dL (0.60-1.20); Potassium, Blood 3.6 mmol/L (3.5-5.5)
--- NOTE | 2024-01-20 08:00 | NUR ---
INITIAL ASSESSMENT PATIENT INTUBATED AND SEDATED. PATIENT RESPONDS TO NOXIOUS STIMULI/ NURSING CARE WITH OPENING OF EYES, MOVING OF HEAD, AND TRYING TO SIT UP IN BED. PATIENT AFEBRILE. NO SIGNS OF PAIN NOTED WHEN PATIENT NOT STIMULATED. PATIENT ON VENT WITH SETTINGS OF AC 20, TV 450, PEEP 10 AND 60% FIO2. LUNGS CLEAR IN UPPER LOBES AND DIMINISHED IN LOWER LOBES. SMALL AMOUNT OF THIN, PALE YELLOW SPUTUM SUCTIONED FROM ETT. COPIOUS ORAL SECRETIONS NOTED. PATIENT IN SR, HR IN THE 70S. SBP IN THE 130S. 1+ EDEMA NOTED. TRICKLE TF INFUSING INTO OG. TF NOT AT GOAL RATE ABD SEVERELY DISTENDED. ABD SOFT. NO BM DOCUMENTED SINCE ARRIVAL TO HOSPITAL. PRN BOWEL CARE BEING GIVEN. GLASS DRAINING TAMEKA COLORED URINE. SKIN APPEARS WNL. PROPOFOL INFUSING AT 50 MCG/ KG/ MINUTE, VERSED AT 10 MG/ HOUR, NS TKO. BED LOW, CALL LIGHT IN REACH. CARE CONTINUES.
--- NOTE | 2024-01-20 09:30 | NUR ---
DR. BLAKELY IN ROOM TO SEE PATIENT. DR. BLAKELY UPDATED ON PATIENT STATUS. INFORMED THAT PEEP AT 10 AND FIO2 AT 60%. INFORMED THAT BUSINESS REPORTING DEVELOPER RN REPORTED PATIENT DESATTING DOWN TO 70S WHEN PATIENT REPOSITIONED TO EITHER SIDE. INFORMED THAT PATIENT ON PROPOFOL AT 50 MCG/ KG/ MINUTE AND VERSED AT 10 MG/ HOUR. INFORMED THAT PATIENT OPENS EYES AND TRIES TO SIT FORWARD WITH NURSING CARE OR NOXIOUS STIMULI. INFORMED THAT PATIENT HAD TMAX OF 99.7 DEGREES ON BUSINESS REPORTING DEVELOPER. INFORMED THAT PATIENT'S ABD SEVERELY DISTENDED, BUT SOFT AND WITH HYPOACTIVE BOWEL SOUNDS NOTED. INFORMED THAT TF AT TRICKLE. STATED NO SEDATION VACATION AT THIS TIME.
[2024-01-20] MEDS ORDERED: Ipratropium/Albuterol SulF 2.5-0.5MG/3 ML Amp INH SCH (11:55)
[2024-01-20] MEDS ORDERED: Haloperidol Lactate Inj. 5 MG/ML Injection IV PRN (11:55)
[2024-01-20] MEDS ORDERED: LORazepam 2 MG Tab PT SCH (12:00)
--- NOTE | 2024-01-20 13:11 | NUR ---
VERSED DRIP CHANGED FROM OLD IV PUMPS TO NEW BD ALARIS PCU PUMPS. 73.2 MLS INFUSED. 20 MLS WASTED WITH KATIE RIVAS.
--- NOTE | 2024-01-20 13:30 | NUR ---
PATIENT AFEBRILE. HR IN THE 50S. SBP IN THE LOW 100S. NEURO REMAINS UNCHANGED. PROPOFOL AT 45 MCG/ KG/ MINUTE. VERSED AT 8 MG/ HOUR. SCHEDULED ATIVAN GIVEN. TF RESIDUAL OF 130 MLS REINSTILLED. TF INCREASED TO GOAL RATE OF 30 MLS/ HOUR. TF FLUSH INCREASED TO 100 MLS Q4H. NO SIGNS OF PAIN NOTED AT THIS TIME. CARE CONTINUES.
--- NOTE | 2024-01-20 16:45 | NUR ---
PATIENT AFEBRILE. FIO2 AT 55%. SEDATION HAS BEEN INCREASED PATIENT HAS BEEN AGITATED, PULLING AT RESTRAINTS, AND COUGHING ON ETT. NO OTHER ACUTE CHANGES TO NOTE ON AT THIS TIME. CARE CONTINUES.
--- NOTE | 2024-01-20 18:41 | NUR ---
SHIFT SUMMARY PATIENT REMAINED INTUBATED AND ON SEDATION. PATIENT REMAINED RESPONDING TO NURSING CARE/ NOXIOUS STIMULI FOR THE MOST PART. SCHEDULED ATIVAN PT ORDERED AND STARTED THIS SHIFT. BEGAN TO DECREASE SEDATION AFTER ATIVAN GIVEN BUT PATIENT LATER BECAME VERY AGITATED, TRYING TO SIT UP, PULLING AT RESTRAINTS, COUGHING AGAINST VENT THEREFORE SEDATION INCREASED BACK UP AGAIN AFTER SPEAKING WITH DR. BLAKELY. PATIENT REMAINED AFEBRILE. LUNGS REMAINED CLEAR IN UPPER LOBES AND DIM IN LOWER LOBES. VENT SETTINGS REMAINED AC 20, TV 450, PEEP 10 AND FIO2 DECREASED FROM 60 TO 55%. PATIENT REMAINED SB TO SR, HR 50S TO 80S. SBP LOW 100S TO 130S. NO BM THIS SHIFT. PRN SUPPOSITORY GIVEN. TF RESIDUAL 130 MLS THIS SHIFT; REINSTILLED. TF INCREASED TO GOAL RATE OF 30 MLS/ HOUR AND WATER FLUSH INCREASED TO 100 MLS Q4H. GLASS DRAINED 625 MLS OF TAMEKA COLORED URINE. NO CHANGES TO SKIN NOTED. PATIENT REPOSITIONED Q2H DURING SHIFT. VERSED CURRENTLY AT 8 MG/ HOUR AND PROPOFOL AT 50 MCG/ KG/ MINUTE. S.O. CHEKO CALLED TO CHECK UP ON PATIENT TWICE THIS SHIFT. BED LOW, CALL LIGHT IN REACH. NO SIGNS OF PAIN OR DISCOMFORT NOTED AT THIS TIME. REPORT WILL BE GIVEN TO ASSUMING LOG STACKER OPERATOR NURSE SHORTLY.
[2024-01-20] MEDS ORDERED: Metoprolol Tartrate 25 MG Tab PT SCH (21:00)
[2024-01-20] MEDS ORDERED: Metoclopramide HCl 5MG / ML 2ML Vial IV SCH (21:00)
[2024-01-20] MEDS ORDERED: Lactobacil 2-S.Thermo-Bifido 1 1 Cap PT SCH (21:00)
[2024-01-20] MEDS ORDERED: Ezetimibe 10 MG Tab PT SCH (21:00)
--- NOTE | 2024-01-20 22:43 | NUR ---
PATIENT REMAINS ON VENT, WITH NO CHANGE IN VENT SETTINGS. MEDICATED WITH MILK OF MAGNESIA AND COLACE DUE TO NO STOOL FOR 6 DAYS. PATIENT TURNED AT NEEDED AND SUCTIONED NEEDD. WHILE CHANGES PROPOFOL, IT INADVERTENTLY BECAME DISCOMMECTED AND PATIENT BEGAN TO WAKE UP. NO TRACKING OR FOLLOWING COMMANDS, BUT CONTINUALLY PULLING AT RESTRAINTS AND PULLING LEGS UP TO ABDOMEN. AFTER PROPOFOL RESTARTED PATIENT BEGAN TO REST MORE COMFORTABLY.
[2024-01-21] VITALS (66 sets, daily range): BP systolic 105–182; BP diastolic 60–109
[2024-01-21 03:52] LABS: BASOPHILS ABSOLUTE AUTO 0.05 K/mm3 (0.00-0.23); BASOPHILS PERCENT AUTO 1 % (0-2); EOSINOPHILS PERCENT AUTO 0 % (0-6); Hematocrit 39.5 % (37.0-53.0); Hemoglobin 12.9 g/dL (13.5-17.5); IMMATURE GRAN ABSOLUTE AUTO 0.44 K/mm3 (0.00-0.10); IMMATURE GRAN PERCENT AUTO 4 % (0-1); LYMPHOCYTES ABSOLUTE AUTO 0.65 K/mm3 (0.84-5.20); LYMPHOCYTES PERCENT AUTO 6 % (21-46); MONOCYTES ABSOLUTE AUTO 1.32 K/mm3 (0.16-1.47); MONOCYTES PERCENT AUTO 13 % (4-13); Mean Corpuscular HGB 32.7 pg (26.0-34.0); Mean Corpuscular HGB Conc 32.7 g/dL (31.5-36.5); Mean Corpuscular Volume 100 fL (80-100); Mean Platelet Volume 10.3 fL (9.1-12.4); NEUTROPHILS ABSOLUTE AUTO 8.12 K/mm3 (1.96-9.15); NEUTROPHILS PERCENT AUTO 77 % (41-73); NRBC ABSOLUTE 0.31 K/mm3 (0.00-0.02); NRBC Auto 2.9 /100 WBC (0.0-0.2); Platelet Count 258 K/mm3 (150-400); RDW Coefficient Variation 14.3 % (11.7-14.2); RDW Standard Deviation 51.7 fL (35.1-46.3); Red Blood Cell Count 3.95 M/mm3 (4.30-5.90); White Blood Cell Count 10.58 K/mm3 (4.00-11.30)
[2024-01-21 04:04] LABS: International Normalized Ratio 1.02; Prothrombin Time Results 10.9 Sec (9.7-11.5)
[2024-01-21 04:22] LABS: Albumin, Blood 2.7 g/dL (3.4-5.0); Albumin/Globulin Ratio 0.7 (0.8-1.8); Bilirubin, Direct 0.1 mg/dL (0.0-0.3); Bilirubin, Indirect 0.3 mg/dL (0.1-0.7); Bilirubin, Total 0.4 mg/dL (0.1-1.0); Bun/Creatinine Ratio 33.8 (12.0-20.0); Calcium, Blood 8.7 mg/dL (8.5-10.1); Creatinine, Blood 0.68 mg/dL (0.60-1.20); Globulin, Blood 3.7 g/dL (2.2-4.0); Phosphorus, Blood 3.3 mg/dL (2.5-4.9); Potassium, Blood 3.7 mmol/L (3.5-5.5); Total Protein, Blood 6.4 g/dL (6.4-8.2)
[2024-01-21] MEDS ORDERED: Levothyroxine Sodium 0.1 MG Tab PT SCH (06:00)
[2024-01-21] MEDS ORDERED: Lansoprazole 15 MG TAB.RAP.DR PT SCH (06:00)
--- NOTE | 2024-01-21 08:00 | NUR ---
INITIAL ASSESSMENT PATIENT INTUBATED AND ON SEDATION. PATIENT RESPONDING TO NOXIOUS STIMULI AND NURSING CARE WITH OPENING OF YES AND PULLING AT RESTRAINTS. PATIENT GIVEN PRN FENTANYL THIS AM FOR SIGNS OF DISCOMFORT AND PATIENT SEEMED MUCH MORE RELAXED AFTER. PATIENT HAS TEMP OF 99.3 DEGREES FAHRENHEIT THIS SHIFT. PATIENT ON VENT SETTINGS OF AC 20, TV 450, PEEP 10 AND 55% FIO2. LUNGS CLEAR IN UPPER LOBES AND DIMINISHED IN LOWER LOBES. SMALL AMOUNT OF THIN, YELLOW SPUTUM NOTED WITH SUCTIONING OF ETT. PATIENT IN SR, HR IN THE 80S. SBP IN THE 130S. PATIENT HAS SMALL AMOUNT OF EDEMA. ABD MODERATELY DISTENDED, SOFT, WITH HYPOACTIVE BOWEL SOUNDS, BUT SOUNDS ARE MORE THAN YESTERDAY. TF INFUSING AT GOAL RATE. TF RESIDUAL OF 30 MLS OBTAINED AND REINSTILLED. PATIENT CONTINUES TO GET PRN BOWEL CARE HAS NOT HAD BM SINCE ARRIVAL TO HOSPITAL. GLASS IN PLACE DRAINING YELLOW/ GREEN COLORED URINE. BOOT ON R HEEL FEELS BOGGY. VERSED INFUSING AT 8 MCG/ HOUR, PROPOFOL AT 50 MCG/ KG/ HOUR. NS TKO. BED LOW, CALL LIGHT IN REACH. CARE CONTINUES.
[2024-01-21] MEDS ORDERED: Thiamine HCl 100 MG Tab PT SCH (09:00)
[2024-01-21] MEDS ORDERED: Folic Acid 1 MG TAB PT SCH (09:00)
[2024-01-21] MEDS ORDERED: Lisinopril 5 MG Tab PT SCH (09:00)
[2024-01-21] MEDS ORDERED: FentaNYL Citrate 50 MCG/ML 2 ML Injection IV PRN (09:15)
[2024-01-21] MEDS ORDERED: PredniSONE 20 MG Tab PT SCH (10:00)
--- NOTE | 2024-01-21 18:43 | NUR ---
SHIFT SUMMARY PATIENT REMAINED INTUBATED AND ON SEDATION. PATIENT REMAINED RESPONDING TO NOXIOUS STIMULI WHEN ON SEDATION. PATIENT GIVEN PRN FENTANYL FOR AGITATION THIS SHIFT AND SEEMED TO SIGNIFICANTLY IMPROVE RESTLESSNESS AND TENSENESS IN BODY. VERSED WAS ABLE TO BE DECREASED TO 6 MG/ HOUR. PROPOFOL WAS PLACED ON SB FOR SHORT TIME AND IS NOW AT 40 MCG/ KG/ HOUR. PATIENT WAS ABLE TO FOLLOW SOME SIMPLE COMMANDS SUCH WIGGLING TOES, SQUEEZING HANDS AND NODDING HEAD NO. PATIENT ALSO SMILED ON ONE SIDE. PATIENT PLACED BACK ON SEDATION AFTER STARTING TO BECOME AGITATED AGAIN AND BECOMING ASYNCHRONOUS WITH VENT. VENT SETTINGS REMAINED UNCHANGED THIS SHIFT. PATIENT HR RANGED FROM 50S TO 80S. SBP LOW 100S TO 170S. NO BM THIS SHIFT. PRN BOWEL CARE GIVEN. TF CHANGED TO GOAL RATE OF 22 MLS/ HOUR AND FLUSH NOW AT 120 MLS Q4H. GLASS DRAINED 1175 MLS OF GREEN/ YELLOW COLORED URINE THIS SHIFT. PATIENT APPEARS COMFORTABLE AT THIS TIME. BED LOW, CALL LIGHT IN REACH. REPORT WILL BE GIVEN TO ASSUMING CARBON PAPER MACHINE OPERATOR NURSE SHORTLY.
[2024-01-21] MEDS ORDERED: Guar Gum, Partially Hydrolyzed 4 GM Pack PT SCH (21:00)
[2024-01-21] MEDS ORDERED: OLANZapine ODT 5 MG Tab MM SCH (21:00)
--- NOTE | 2024-01-21 21:20 | NUR ---
ASSUMED CARE PT INTUBATED AND SEDATED. AC/VC 24/450/10/55%. PROPOFOL AND VERSED GTT INFUSING. SEE FLOWSHEET FOR TITRATIONS. OPENS EYES SPONT, BUT DOES NOT TRACK. DOES NOT FOLLOW COMMANDS. VSS, HTN AT TIMES. SR RATE 70'S. OGT WITH TF AT GOAL. 200 ML RESIDUAL. GLASS PATENT AND DRAINING TO GRAVITY.
[2024-01-22] VITALS (84 sets, daily range): BP systolic 121–187; BP diastolic 71–128
[2024-01-22 04:38] LABS: Albumin, Blood 2.5 g/dL (3.4-5.0); Anion Gap 8 mmol/L (3-11); Blood Urea Nitrogen 23 mg/dL (8-24); Bun/Creatinine Ratio 37.5 (12.0-20.0); CO2, Blood 28 mmol/L (21-32); Chloride, Blood 112 mmol/L (98-108); Creatinine, Blood 0.61 mg/dL (0.60-1.20); Glomerular Filtration Rate 116 (60-); Glucose, Blood 89 mg/dL (70-99); Phosphorus, Blood 3.6 mg/dL (2.5-4.9); Potassium, Blood 3.3 mmol/L (3.5-5.5); Sodium, Blood 145 mmol/L (136-145)
[2024-01-22] MEDS ORDERED: Potassium Chloride 20 MEQ TabCR PT ONE (04:45)
[2024-01-22] MEDS ORDERED: Lactulose 10 GM/15 ML UDC PT SCH (04:50)
[2024-01-22] MEDS ORDERED: Potassium Chloride 20 MEQ/15 ML UDC PT ONE (05:30)
[2024-01-22] MEDS ORDERED: Lactulose 20 GM/30 ML UDC PT SCH (06:00)
--- NOTE | 2024-01-22 06:11 | NUR ---
SHIFT SUMMARY NO ACUTE EVENTS T/O NIGHT. REMAINS INTUBATED AND SEDATED. AC/VC 20/450/10/55%. PROPOFOL AND VERSED GTT INFUSING. SEE FLOWSHEET FOR TITRATIONS. MEDICATED WITH PRN X 1 FOR BEDBATH. VSS. SR RATE 60-70'S. OGT WITH TF AT GOAL. ABD DISTENDED, HYPOACTIVE BT AND NO BM THIS SHIFT. CALL TO HOSP AND ORDER FOR LACTULOSE PT BID UNTIL PT HAS A BM. ALSO NOTIFIED OF POTASSIUM LEVEL. ORDER RECEIVED. GLASS PATENT AND DRAINING TO GRAVITY. WILL REPORT OFF TO ONCOMING RN.
[2024-01-22] MEDS ORDERED: LORazepam 2 MG/ML 1ML Injection IV PRN (10:50)
--- NOTE | 2024-01-22 12:28 | NUR ---
REASSESSMENT PT REMAINS INTUBATED. SEDATED WITH PROPOFOL. VERSED TURNED OFF PER DR. KENNY AND FENTANYL AND ATIVAN BEING GIVEN PRN. PT OPENS HIS EYES, NOT FOLLOWING COMMANDS OR TRACKING WITH HIS EYES. LUNGS ARE CLEAR, DIM IN THE BASES. SR, BP ELEVATED WHEN PT IS MORE AGITATED BUT COMES DOWN WHEN PT RELAXES. ABD STILL DISTENDED AND NO BM. PRN DOCUSATE GIVEN AND LACTULOSE WAS GIVEN BY DINKEY LOCOMOTIVE OPERATOR. BOWEL TONES ARE ACTIVE. GLASS WITH YELLOW URINE. PT'S FRIEND TOBY CALLED AND WAS PROVIDED WITH UPDATE.
--- NOTE | 2024-01-22 15:40 | NUR ---
Pt remains a full code for now. He remains intubated. His ex-girlfriend Candice states she and the patient prepared box and appointed each other as medical POA's. She is attempting to get a copy, and states she will email it to us when she obtains a copy. She does understand that without the legal document, the responsibility would fall to his adult child if he was willing and the patient remained unable to make his needs and wants known.
--- NOTE | 2024-01-22 17:36 | NUR ---
SHIFT SUMMARY PT REMAINS INTUBATED AND SEDATED. VERSED HAS REMAINED OFF THIS AFTERNOON, PROPOFOL STILL INFUSING. PT OPENS HIS EYES AND MOVES ALL EXTREMITIES, BUT DOES NOT FOLLOW COMMANDS. LUNGS ARE CLEAR. UNABLE TO TITRATE FIO2 TODAY SPO2 STAYED 92-94%. SR, BP FLUCTUATES DEPENDING ON PT'S DISCOMFORT. GLASS WITH GOOD URINE OUTPUT. NO BM DESPITE BOWEL CARE. TUBE FEED INFUSING AT GOAL. FLUSH VOLUME INCREASED PER ORDERS. 20ML RESIDUAL THIS AFTERNOON. SPOKE WITH PT'S FRIENDS JOHNY AND ACE TO PROVIDE UPDATE. PALLIATIVE CARE IN CONTACT WITH JOHNY WELL.
--- NOTE | 2024-01-22 21:37 | NUR ---
1900-- ASSUMED CARE PT SEDATED ON PROPOFOL 50MCG/KG/MIN. PT NOT PULLING AT ANY LINES. HE DOES OPEN HIS EYES TO STIMULI BUT DOES NOT FOLLOW ANY COMMANDS. PT HAS CLEAR LUNG SOUNDS ON THE VENT. 20/450/10/55% SAO2 94-96%. MODERATE AMOUNT OF SPUTUM CLEAR FROTHY ORAL AND FROM ETT. PT HAD TUBE FEEDING GOING DOWN OG AT GOAL 22 WITH FREE WATER FLUSHES OF 200CC/4 HRS. PT HAD DISTENDED ABD WITH POSITIVE BT T/O. PT ALSO HAD A SMALL LOOSE STOOL LIGHT BROWN IN COLOR. HE DID RECIEVED MORE STOOL SOFTENERS TONIGHT DOWN OG WITH OTHER MEDICATIONS TONIGHT. HIS RESIDUAL FROM OG WHEN CHECKED BEFORE MEDS GIVEN WAS 110 AND WAS REFED. PT HAD GLASS 16FR WITH GREEN/YELLOW URINE OUT. GOOD OUTPUT AT THIS TIME. PT HAS GENERALIZED EDEMA T/O AND GOOD PULSES X 4 EXTREM. VS STABLE BP SLIGHTLY ELEVATED SBP 150-160'S DIASTOLIC 100'S. HE WAS GIVEN HYDRALAZINE IV AND ATIVAN IV. RHYTHM SINUS RATE 80'S. ENTITLE CO2 29 CURRENTLY. AFEBRILE 97.6F. HE WAS WASHED DOWN ALL OVER WELL AND GLASS CARE COMPLETED THIS EVENING.
[2024-01-23] VITALS (55 sets, daily range): BP systolic 109–164; BP diastolic 61–100
[2024-01-23 05:14] LABS: BASOPHILS ABSOLUTE AUTO 0.11 K/mm3 (0.00-0.23); BASOPHILS PERCENT AUTO 1 % (0-2); EOSINOPHILS PERCENT AUTO 1 % (0-6); Hematocrit 42.5 % (37.0-53.0); Hemoglobin 13.6 g/dL (13.5-17.5); IMMATURE GRAN ABSOLUTE AUTO 0.52 K/mm3 (0.00-0.10); IMMATURE GRAN PERCENT AUTO 5 % (0-1); LYMPHOCYTES ABSOLUTE AUTO 0.88 K/mm3 (0.84-5.20); LYMPHOCYTES PERCENT AUTO 8 % (21-46); MONOCYTES ABSOLUTE AUTO 1.38 K/mm3 (0.16-1.47); MONOCYTES PERCENT AUTO 13 % (4-13); Mean Corpuscular HGB 32.5 pg (26.0-34.0); Mean Corpuscular Volume 101 fL (80-100); Mean Platelet Volume 9.8 fL (9.1-12.4); NEUTROPHILS ABSOLUTE AUTO 7.66 K/mm3 (1.96-9.15); NEUTROPHILS PERCENT AUTO 72 % (41-73); NRBC ABSOLUTE 0.47 K/mm3 (0.00-0.02); NRBC Auto 4.4 /100 WBC (0.0-0.2); Platelet Count 287 K/mm3 (150-400); RDW Coefficient Variation 14.6 % (11.7-14.2); RDW Standard Deviation 53.9 fL (35.1-46.3); Red Blood Cell Count 4.19 M/mm3 (4.30-5.90); White Blood Cell Count 10.65 K/mm3 (4.00-11.30)
--- NOTE | 2024-01-23 05:45 | NUR ---
END OF SHIFT NOTE. PT TRIED TO GET SOME REST TONIGHT BUT DID HAVE MOMENTS OF AGGITATION. HE WAS ON 50MCG OF PROPOFOL ALL NIGHT AND DID GET ATIVAN THAT WAS SCHEDULED AND A COUPLE IV PUSHES ALONG WITH FENT. 50MCG TWICE TONIGHT WELL. PT'S LUNGS REMAIN CLEAR HOWEVER SECRETIONS STARTED FROTHY AND CLEAR WHITE BUT DID CHANGE TO KERR CHUNCKS THAT WERE BEING SUCTIONED UP OUT OF ETT TONIGHT. PT STARTED STOOLING THIS EVENING!!!!!!! TWICE THUS FAR TONIGHT. TUBE FEEDING IS GOING AT GOAL 22CC/HR AND WATER 200CC/Q4/HR. PT RESIDUAL WAS ONLY 110 ADN WAS REFED TO PT. ABDOMEN STILL REMAINS DISTENDED. GLASS STILL IN PLACE WITH GOOD GREEN/YELLOW URINE OUT. WILL GIVE REPORT TO NEXT SHIFT TO RESUME CARE.
[2024-01-23 05:55] LABS: Albumin, Blood 2.9 g/dL (3.4-5.0); Anion Gap 10 mmol/L (3-11); Blood Urea Nitrogen 20 mg/dL (8-24); Bun/Creatinine Ratio 27.6 (12.0-20.0); CO2, Blood 25 mmol/L (21-32); Calcium, Blood 8.4 mg/dL (8.5-10.1); Chloride, Blood 111 mmol/L (98-108); Creatinine, Blood 0.72 mg/dL (0.60-1.20); Glomerular Filtration Rate 110 (60-); Glucose, Blood 98 mg/dL (70-99); Magnesium, Blood 2.4 mg/dL (1.6-2.4); Phosphorus, Blood 3.1 mg/dL (2.5-4.9); Potassium, Blood 3.2 mmol/L (3.5-5.5); Sodium, Blood 143 mmol/L (136-145)
[2024-01-23] MEDS ORDERED: Potassium Chloride 40 MEQ in NS 250 ML IV ONE (06:35)
--- NOTE | 2024-01-23 07:15 | NUR ---
ASSUMPTION OF CARE: ASSUMED CARE OF PATIENT. PATIENT RESTING COMFORTABLY IN BED. LIMBS ARE STILL AND FACE IS UNFURROWED. PATIENT TOLERATING THE VENT AT THIS TIME. PROPOFOL INFUSING AT 50 MCG/KG/MIN. VENT SETTINGS: AC/VC 20/450/10/55%. SPO2 >90%. VITALS STABLE WITH MAPS >65. GLASS IN PLACE AND DRAINING FREELY.
[2024-01-23] MEDS ORDERED: PredniSONE 20 MG Tab PT SCH (09:00)
--- NOTE | 2024-01-23 15:30 | NUR ---
CHANGES TO RESPIRATORY STATUS: LATE ENTRY THIS AFTERNOON, PATIENT BECAME INCREASINGLY AGITATED. PATIENT SLAMMING LEGS ON THE BED. AROUND THIS TIME, PATIENTS RR INCREASED INTO THE HIGH 30S. SPO2 86-88% RT AT THE BEDSIDE. PATIENT MEDICATED FOR AGITATION. CONTINUED TO HAVE A HIGH RR AND LOW SPO2. WHEEZES AND MILD COARSENESS AUSCULTATED. ETCO2 DECREASED TO THE LOW 20S. DR. KENNY AT BEDSIDE. PEEP INCREASED TO 10. FIO2 INCREASED TO 100%. CONTINUED TO HAVE SPO2 87-89%. STAT CHEST XRAY COMPLETED. PATIENT SENT TO IMAGING FOR STAT CHEST CT. BY THIS TIME SPO2 >90%. PATIENT REQUIRED INCREASE IN PROPOFOL TO MAINTAIN CALM DURING CT AND TO ASSIST WITH RESPIRATORY RATE. PATIENT BACK TO ROOM. PATIENT'S SPO2 STAYED STABLE >90% DURING CT SCAN AND ONCE BACK IN ROOM.
[2024-01-23 16:57] LABS: PCO2 Venous 41.6 mmHg (38-42); pH Blood Venous 7.41 (7.34-7.37)
[2024-01-23 16:58] LABS: Base Excess Venous 1.8 mmol/L; Bicarbonate Venous 25.4 mmol/L (24.0-30.0)
[2024-01-23] MEDS ORDERED: Dose Adjust by Pharmacy XX STA (17:00)
[2024-01-23] MEDS ORDERED: Heparin Sodium,Porcine/0.5 NS 500 ML IV SCH (17:05)
[2024-01-23] MEDS ORDERED: Heparin Sodium 5000 Units/ML 1ML MDV IV ONE (17:05)
[2024-01-23 17:14] LABS: Anti-Xa UFH, PHA Monitoring 0.11 IU/mL; International Normalized Ratio 1.08; Prothrombin Time Results 11.5 Sec (9.7-11.5)
--- NOTE | 2024-01-23 18:46 | NUR ---
SHIFT SUMMARY: NEURO: PATIENT OPENING EYES SPONTANEOUSLY AT TIMES DURING THE DAY. PATIENT DID NOT FOLLOW DIRECTIONS DURING THE DAY. PATIENT AGITATED AT TIMES. PRN ATIVAN GIVEN TWICE. PATIENT MOVING ALL FOUR LIMBS. PATIENT CONTINUES TO BE STRONG IN HIS BILATERAL UPPER EXTREMITIES. RESPIRATORY: SEE NURSE'S NOTE FOR CHANGES TO RESPIRATORY STATUS THIS AFTERNOON AND SUBSEQUENT INTERVENTIONS. PATIENT ENDED THE SHIFT WITH VENT SETTINGS OF AC/VC PLUS 20/450/10/100%. SPO2 >90%. RR IN THE HIGH 20S AND LOW 30S. TIDAL VOLUMES IN THE 500S. ETCO2 IN THE LOW 20S. HEPARIN GTT INFUSING AT 18 MCG/KG/HR. CARDIAC: PATIENT'S VITAL SIGNS STABLE. SBP IN THE 120S-150S. HR IN THE 70-90S. NORMAL SINUS THROUGHOUT THE SHIFT. GI/: TUBE FEED CHANGED TO 17 ML/HR PER OUTSIDE RESIDENTIAL SALES PROFESSIONAL RECOMMENDATIONS. PATIENT DID NOT HAVE A BOWEL MOVEMENT. SOME INCREASE IN ABDOMINAL DISTENTION NOTED. LACTULOSE GIVEN. GLASS IN PLACE AND DRAINING FREELY A YELLOW/GREEN URINE. NO FOUL ODOR NOTED. PSYCHSOCIAL: UPDATED PATIENT'S SO OR EX-SO TOBY. PATIENT CONTINUES TO HAVE INTERMITTANT AGITATION.
[2024-01-24] VITALS (94 sets, daily range): BP systolic 100–167; BP diastolic 66–111
[2024-01-24] MEDS ORDERED: Dose Adjust by Pharmacy XX STA ×4 (00:24→22:36)
[2024-01-24] MEDS ORDERED: Heparin Sodium 5000 Units/ML 1ML MDV IV ONE ×3 (00:25→15:55)
[2024-01-24 03:43] LABS: BASOPHILS ABSOLUTE AUTO 0.09 K/mm3 (0.00-0.23); BASOPHILS PERCENT AUTO 1 % (0-2); EOSINOPHILS ABSOLUTE AUTO 0.19 K/mm3 (0.00-0.68); EOSINOPHILS PERCENT AUTO 2 % (0-6); Hematocrit 42.1 % (37.0-53.0); IMMATURE GRAN ABSOLUTE AUTO 0.47 K/mm3 (0.00-0.10); IMMATURE GRAN PERCENT AUTO 4 % (0-1); LYMPHOCYTES ABSOLUTE AUTO 1.14 K/mm3 (0.84-5.20); LYMPHOCYTES PERCENT AUTO 11 % (21-46); MONOCYTES ABSOLUTE AUTO 1.63 K/mm3 (0.16-1.47); MONOCYTES PERCENT AUTO 15 % (4-13); Mean Corpuscular HGB 32.2 pg (26.0-34.0); Mean Corpuscular HGB Conc 30.9 g/dL (31.5-36.5); Mean Corpuscular Volume 104 fL (80-100); Mean Platelet Volume 9.9 fL (9.1-12.4); NEUTROPHILS ABSOLUTE AUTO 7.33 K/mm3 (1.96-9.15); NEUTROPHILS PERCENT AUTO 68 % (41-73); NRBC ABSOLUTE 0.17 K/mm3 (0.00-0.02); NRBC Auto 1.6 /100 WBC (0.0-0.2); Platelet Count 254 K/mm3 (150-400); RDW Coefficient Variation 14.4 % (11.7-14.2); RDW Standard Deviation 54.2 fL (35.1-46.3); Red Blood Cell Count 4.04 M/mm3 (4.30-5.90); White Blood Cell Count 10.85 K/mm3 (4.00-11.30)
[2024-01-24 04:04] LABS: Calcium, Blood 8.2 mg/dL (8.5-10.1); Creatinine, Blood 0.63 mg/dL (0.60-1.20); Phosphorus, Blood 4.3 mg/dL (2.5-4.9)
[2024-01-24 04:31] LABS: PCO2 Arterial 37.2 mmHg (35-45); PO2 Arterial 54.1 mmHg (80-100); pH Blood Arterial 7.43 (7.35-7.45)
--- NOTE | 2024-01-24 04:51 | NUR ---
DESATURATION AT APPROXIMATELY 0315, MONITOR SHOWS O2 SATS DECREASING TO 84%. FIO2 90%- INCREASED TO 100% AT THAT TIME. SMALL CUFF LEAK NOTED. RT AT BEDSIDE- SX'D COPIOUS AMOUNTS OF THICK YELLOW SPUTUM. PT REPOSITIONED FROM RIGHT SIDE TO LEFT SIDE WITH MINIMAL CHANGE IN SATURATIONS. INCREASED ABDOMINAL DISTENTION NOTED. TUBE FEEDING STOPPED AND OG PLACED TO LOW SX TO DRAIN STOMACH. RT CHANGED VENT SETTINGS TO PRESSURE CONTROL AND EVENTUALLY BAGGED PT FOR APPROXIMATELY [address] KENNY NOTIFIED OF CHANGE IN STATUS- ORDER RECEIVED TO DO STAT CHEST X-RAY. CXR DONE. DR. KENNY ARRIVED AT BEDSIDE AT APPROXIMATELY 0350. 02 SATS 65-70%. NEW ORDER RECEIVED FOR ABDOMINAL XRAY. CONTINUE TO SX MODERATE AMOUNTS OF THICK YELLOW SPUTUM. SATS EVENTUALLY INCREASED TO 88-90% WITH VENT SETTINGS PC 22, PI 18, PEEP 12, FIO2 100%. ABG DONE AT 0425- RESULTS TO ZOYA GONCALVES. TUBE FEEDING ON HOLD AND OG TO LIS. DR. KENNY NOTIFIED BROTHER (SURINDER) OF CHANGE IN CONDITION. ALSO ATTEMPTED TO NOTIFY S.O. (TOBY) BUT SHE DID NOT ANSWER PHONE.
[2024-01-24] MEDS ORDERED: Ampicillin Sod/Sulbactam Sod 3 GM in NS 100 ML IV SCH (05:00)
--- NOTE | 2024-01-24 06:29 | NUR ---
SHIFT SUMMARY PATIENT ON VENT PC 22 PEEP 12 FIO2 100%, LUNGS SOUND CLEAR IN UPPER LOBES, LOWER LOBES DIMINSHED. UNABLE TO FOLLOW COMMANDS, SQUEEZED BOTH RIGHT AND LEFT HANDS BUT SPONTANEOUSLY. OPENS EYE SPONTANEOUSLY WELL. HR 70-80'S, SBP 120-130'S, O2 IN TH 60'S FOR A BIT SEE NURSING NOTE. 97 OF 629. GLASS DRAINING TO GRAVITY, DID PLACE A RECTAL TUBE FOR LEAKING LOOSE BROWN STOOLS, PATIENT TOLERATED IT WELL. WILL CONTINUE TO MONITOR
--- NOTE | 2024-01-24 07:15 | NUR ---
ASSUMPTION OF CARE: ASSUMED CARE OF PATIENT. PATIENT RESTING SOUNDLY IN BED. HEPARIN INFUSING AT 21 UNITS/KG/HR. PROPOFOL AT 55 MCG/KG/HR. LIMBS ARE STILL AND THE PATIENT IS TOLERATING THE VENT. VENT SETTINGS AC/PC 22/450/12/100%. SPO2 IS 90-92%. RR IN THE 20'S. TIDAL VOLUMES 400-500ML. BLOOD PRESSURES STABLE WITH MAPS >65. HR IN THE 60S. GLASS IN PLACE AND DRAINING FREELY. SOME BROWN LIQUID STOOL NOTED IN THE RECTAL TUBE.
--- NOTE | 2024-01-24 10:15 | NUR ---
JACOBO PAPERWORK IN THE CHART: PATIENT'S POA TOBY SCOTTE ALVAREZ FAXED THE LEGAL PAPERWORK. IT IS IN THE PATIENT'S CHART. SHE REPORTED THAT SHE SIMPLY WANTS TO MAKE SURE THAT THE PATIENT'S BROTHER IS NOT MAKING DECISIONS PER THE PATIENT'S WISHES.
[2024-01-24] MEDS ORDERED: Peg 400/Hypromellose/Glycerin 15 DROP/ML BTL BOTHEYES PRN (17:45)
[2024-01-24] MEDS ORDERED: NS 250 ML IV PRN (17:45)
--- NOTE | 2024-01-24 19:14 | NUR ---
SHIFT SUMMARY: NEURO: PATIENT OPENS EYES AT TIMES TO PAINFUL STIMULI, SOMETIMES SPONTANEOUSLY. NO DIRECTION FOLLOWING TODAY. PATIENT MEDICATED FOR PAIN MULTIPLE TIMES TODAY. PATIENT REQUIRED PRN ATIVAN FOR VENT TOLERANCE MULTIPLE TIMES TODAY. PATIENT MOVING ALL FOUR LIMBS INDEPENDENTLY. RESPIRATORY: VENT SETTINGS CHANGED TODAY PER DR. KENNY. PATIENT TOLERATED WITH PRN ATIVAN AND PROPOFOL. ENDED THE SHIFT WITH PROPOFOL AT 60 MCG/KG/HR. VENT SETTINGS AC/VC PLUS 18/440/12/65%. SPO2 >90%. RR IN THE 20S. PATIENT DID HAVE A MUCUS PLUG ONCE THAT OCCLUDED THE ETT. THIS WAS RESOLVED WITH SUCTION. PATIENT DID NOT DESATURATE DURING THIS. CARDIAC: VITALS STABLE THROUGHOUT THE SHIFT. MAPS >65. HR IN THE 60S-80S. HEPARIN INCREASED PER PHARMACY TO 25 MCG/KG/HR. SEE EMAR FOR BOLUSES GIVEN. NORMAL SINUS THROUGHOUT THE SHIFT. GI/: GLASS IN PLACE AND DRAINING FREELY DARK YELLOW/GREEN URINE. ABDOMEN CONTINUES TO BE DISTENDED AND FIRM. OGT TO LOW INTERMITTANT SUCTION, BUT CLAMPED POST MEDICATION ADMINISTRATION. YELLOW/GREEN OUTPUT IN THE SUCTION CANISTER. MINIMAL DARK BROWN OUTPUT IN THE RECTAL TUBE. PSYCHSOCIAL: UPDATES PROVIDED TO THE PATIENTS JACOBO LUIS AND BROTHER SURINDER. HIS BROTHER REPORTS THAT HE IS GOING TO DRIVE UP FROM [place] TOMORROW.
--- NOTE | 2024-01-24 19:37 | NUR ---
assumed care PATIENT IN BED ON VENT SETTINGS AC/VC 18/440/12/65%. PROPOFOL 60 MCG/KG/MIN AND HEPARIN 25. LUNGS SOUNDS CLEAR IN UPPER LOBE AND LOWER RIGHT, LOWER LEFT LOBE DIMINSHED. BOWEL SOUNDS HYPERACTIVE. RADIAL AND PEDAL PULSES STRONG BILATERALLY. OG TUBE HOOKED TO LOW INTERMITTENT SUCTION. ET TUBE 8.0 AT 24CM AT TEETH. HR IN TH E60'S AND SBP 110-115'S. WILL CONTINUE MONITOR
[2024-01-25] VITALS (72 sets, daily range): BP systolic 97–147; BP diastolic 62–95
[2024-01-25 05:17] LABS: BASOPHILS ABSOLUTE AUTO 0.09 K/mm3 (0.00-0.23); BASOPHILS PERCENT AUTO 1 % (0-2); EOSINOPHILS ABSOLUTE AUTO 0.19 K/mm3 (0.00-0.68); EOSINOPHILS PERCENT AUTO 2 % (0-6); Hematocrit 39.1 % (37.0-53.0); Hemoglobin 12.6 g/dL (13.5-17.5); IMMATURE GRAN ABSOLUTE AUTO 0.37 K/mm3 (0.00-0.10); IMMATURE GRAN PERCENT AUTO 4 % (0-1); LYMPHOCYTES ABSOLUTE AUTO 0.86 K/mm3 (0.84-5.20); LYMPHOCYTES PERCENT AUTO 8 % (21-46); MONOCYTES ABSOLUTE AUTO 1.12 K/mm3 (0.16-1.47); MONOCYTES PERCENT AUTO 11 % (4-13); Mean Corpuscular HGB 32.1 pg (26.0-34.0); Mean Corpuscular HGB Conc 32.2 g/dL (31.5-36.5); Mean Corpuscular Volume 100 fL (80-100); Mean Platelet Volume 9.8 fL (9.1-12.4); NEUTROPHILS ABSOLUTE AUTO 7.61 K/mm3 (1.96-9.15); NEUTROPHILS PERCENT AUTO 74 % (41-73); NRBC ABSOLUTE 0.05 K/mm3 (0.00-0.02); NRBC Auto 0.5 /100 WBC (0.0-0.2); Platelet Count 302 K/mm3 (150-400); RDW Coefficient Variation 14.1 % (11.7-14.2); RDW Standard Deviation 50.8 fL (35.1-46.3); Red Blood Cell Count 3.92 M/mm3 (4.30-5.90); White Blood Cell Count 10.24 K/mm3 (4.00-11.30)
[2024-01-25] MEDS ORDERED: Dose Adjust by Pharmacy XX STA ×2 (05:35→12:42)
[2024-01-25 05:44] LABS: Albumin, Blood 2.6 g/dL (3.4-5.0); Albumin/Globulin Ratio 0.7 (0.8-1.8); Bilirubin, Total 0.6 mg/dL (0.1-1.0); Bun/Creatinine Ratio 26.1 (12.0-20.0); Calcium, Blood 8.6 mg/dL (8.5-10.1); Creatinine, Blood 0.58 mg/dL (0.60-1.20); Globulin, Blood 3.8 g/dL (2.2-4.0); Magnesium, Blood 2.5 mg/dL (1.6-2.4); Phosphorus, Blood 3.7 mg/dL (2.5-4.9); Potassium, Blood 3.9 mmol/L (3.5-5.5); Total Protein, Blood 6.4 g/dL (6.4-8.2)
--- NOTE | 2024-01-25 06:13 | NUR ---
SHIFT SUMMARY PATIENT RESTING THROUGH OUT NIGHT AFTER PROPOFOL WAS STARTED AT 15MCG/KG/MIN, VENT SETTING AT SIMV /// 5 PEEP 30% FOR ABOUT 4 HOURS, NOW ON SPONT 14//30%. HAD BEDBATH AND TOERALTED WELL. HR IN THE 80-90'S SBP 120-130'S. GLASS PATENT AND DRAINING TO GRAVITY AND RECTAL TUBE DRAINING TO GRAVITY. PATIENT ABLE TO OPEN EYES BUT NOT FOLLOW ANY COMMANDS. WILL CONTINUE TO MONITOR.
--- NOTE | 2024-01-25 06:24 | NUR ---
SUMMARY SHIFT PATIENT WAS VERY RESTLESS DURING THE NIGHT GAVE PRN MEDS ATIVAN AND FENTANYL AND UP TO 70 MCG/KG/MIN ON PROPOFOL WITH RELIEF FOR PATIENT. PATIENT HR 60-80'S, SBP 115-125'S, LUNG SOUNDS LOWER LOBE DIMINSHED, EDEMA +1 IN LOWER AND UPPER BILATERAL EXTEMITIES, UPPER ELEVATED ON PILLOWS. PATIENT DOES NOT FOLLOW COMMANDS. HEPERAIN UP TO 27 UNITS DUE TO PTT OF 68 PER ORDER FROM PHARMACIST. OG TUBE PO MEDS ARE ALLOWED BUT CLAMP OFF FOR AN HOUR AFTER AND THEN BACK TO LOW INTERMITTENT SUCTION. VENT SETTINGS 18/440/12/65% 8.0 ET TUBE AT 24 CM AT TEETH. WILL CONTINUE TO MONITOR.
[2024-01-25] MEDS ORDERED: PredniSONE 10 MG Tab PT SCH (09:00)
[2024-01-25] MEDS ORDERED: Vancomycin HCL 2,000 MG in NS 500 ML IV ONE (11:35)
[2024-01-25] MEDS ORDERED: Furosemide 10 MG / ML 2ML Vial IV SCH (12:00)
[2024-01-25 12:24] LABS: Anti-Xa UFH, PHA Monitoring 0.74 IU/mL
--- NOTE | 2024-01-25 12:31 | NUR ---
SEDATION VACATION PATIENT TOLERATED SEDATION VACATION SHORTLY TODAY. WITH PROPOFOL OFF, PATIENT WAS ABLE TO MAKE EYE CONTACT, MOVE ALL EXTREMITIES, AND FOLLOW COMMANDS. DUE TO RESPIRATORY STATUS, PATIENT WAS PLACED BACK ON PROPOFOL @ HALF RATE AND TITRATED UP TO VENTILATOR COMPLIANCE AND RASS GOAL OF 0 TO -2.
--- NOTE | 2024-01-25 15:31 | NUR ---
Received POA papers via email from Candice Del Castillo, pt's previous significant other. She states they had been seperated for a long while, but she still very much cares for him and wishes to remain involved in his care. Will deliver a copy to ICU and medical records and follow up with Candice tomorrow.
--- NOTE | 2024-01-25 15:51 | NUR ---
Pt's brother has arrived from [place], is at pt's bedside. Spoke with him briefly, he states he and his brother have been estranged for many years and denies pt having any family or friends in the [facility] or even [place] for that matter. I asked if he knew Josey, he states he did, that she and the patient had been a couple at one point but were now , which is what Josey had stated as well. POA paperwork received via email from Josey.
--- NOTE | 2024-01-25 18:21 | NUR ---
SHIFT SUMMARY PATIENT REMAINS INTUBATED AND SEDATED. SEE PREVIOUS NURSE NOTES ON SEDATION VACATION. PROPOFOL @ 60MCG/KG/HR AND HEPARIN @ 26 UNITS/KG/HR. TF RESUMED @ GR 17ML/HR WITH 200ML Q4H WATER FLUSHES. PATIENT STARTED ON LASIX TODAY AND HAD GOOD URINE OUTPUT. SCANT STOOL IN RECTAL TUBE SO RECTAL TUBE WAS REMOVED, ATTENDS IN PLACE. PATIENT'S BROTHER ARRIVED AND WAS AT BEDSIDE THIS AFTERNOON, RECEIVED UPDATE FROM NURSE AND DR. KENNY. NO OTHER CHANGES THIS SHIFT.
[2024-01-25] MEDS ORDERED: Vancomycin HCL 1,500 MG in NS 250 ML IV SCH (20:00)
[2024-01-26] VITALS (93 sets, daily range): BP systolic 92–147; BP diastolic 62–130
[2024-01-26 00:59] LABS: BASOPHILS ABSOLUTE AUTO 0.11 K/mm3 (0.00-0.23); BASOPHILS PERCENT AUTO 1 % (0-2); EOSINOPHILS ABSOLUTE AUTO 0.17 K/mm3 (0.00-0.68); EOSINOPHILS PERCENT AUTO 2 % (0-6); Hematocrit 40.2 % (37.0-53.0); IMMATURE GRAN ABSOLUTE AUTO 0.42 K/mm3 (0.00-0.10); IMMATURE GRAN PERCENT AUTO 4 % (0-1); LYMPHOCYTES ABSOLUTE AUTO 0.92 K/mm3 (0.84-5.20); LYMPHOCYTES PERCENT AUTO 8 % (21-46); MONOCYTES ABSOLUTE AUTO 1.21 K/mm3 (0.16-1.47); MONOCYTES PERCENT AUTO 11 % (4-13); Mean Corpuscular HGB 32.1 pg (26.0-34.0); Mean Corpuscular HGB Conc 32.3 g/dL (31.5-36.5); Mean Corpuscular Volume 99 fL (80-100); Mean Platelet Volume 9.7 fL (9.1-12.4); NEUTROPHILS ABSOLUTE AUTO 8.34 K/mm3 (1.96-9.15); NEUTROPHILS PERCENT AUTO 75 % (41-73); NRBC ABSOLUTE 0.05 K/mm3 (0.00-0.02); NRBC Auto 0.4 /100 WBC (0.0-0.2); Platelet Count 325 K/mm3 (150-400); RDW Coefficient Variation 13.9 % (11.7-14.2); RDW Standard Deviation 51.1 fL (35.1-46.3); Red Blood Cell Count 4.05 M/mm3 (4.30-5.90); White Blood Cell Count 11.17 K/mm3 (4.00-11.30)
[2024-01-26 01:13] LABS: Bun/Creatinine Ratio 26.3 (12.0-20.0); Creatinine, Blood 0.65 mg/dL (0.60-1.20); Magnesium, Blood 2.3 mg/dL (1.6-2.4)
[2024-01-26] MEDS ORDERED: Clarify Drug Order XX ONE (01:25)
--- NOTE | 2024-01-26 06:21 | NUR ---
SHIFT SUMMARY: PATIENT SEDATED. NO ABLE TO FC, DID OPEN EYES AT TIMES. WITHDRAWS TO PAIN. PROP AT 60. 1XDOSE OF 50 FNET GIVEN FOR PAIN, AND 1XDOSE OF PRN ATIVAN GIVEN FOR RESTLESS. CARDIAC PATIENT HAS BEEN SINUS ARRHYTHMIA. SBP HAS BEEN 100-120S. RESP PATIENT ON VENT. SETTING RATE 18, TV 440, PEEP 12, FIO2 60%. PATIENT HAS BEEN OVERBREATHING VENT OVERNIGHT. ABDOMEN DISTENDED. TF AT GOAL WITH RATE OF 17. NO BM OVERNIGHT. UO OUT ADEQUATE. GLASS PATENT.
[2024-01-26] MEDS ORDERED: FentaNYL Citrate 50 MCG/ML 2 ML Injection IV ONE (09:30)
[2024-01-26] MEDS ORDERED: Dose Adjust by Pharmacy XX STA (11:38)
[2024-01-26 11:46] LABS: Vancomycin, Trough 21.5 ug/mL (5.0-10.0)
[2024-01-26] MEDS ORDERED: HYDROmorphone HCl/Pf 1MG SYR IV PRN (11:50)
[2024-01-26] MEDS ORDERED: Bisacodyl 10 MG Supp PR ONE (13:00)
[2024-01-26] MEDS ORDERED: Enoxaparin 100 MG/ML 1ML SYR SC SCH (13:00)
[2024-01-26] MEDS ORDERED: Metoclopramide HCl 5MG / ML 2ML Vial IV ONE (13:00)
[2024-01-26] MEDS ORDERED: NS 500 ML IV ONE (14:00)
[2024-01-26] MEDS ORDERED: Albumin (Human) 25gm/100ml 100 ML IV SCH (14:00)
[2024-01-26] MEDS ORDERED: Atorvastatin 40 MG Tab PT SCH (14:00)
[2024-01-26] MEDS ORDERED: Vancomycin HCL 1,250 MG in NS 250 ML IV SCH (14:00)
--- NOTE | 2024-01-26 18:07 | NUR ---
SHIFT SUMMARY PATIENT REMAINS INTUBATED AND SEDATED. PATIENT TOLERATED SEDATION VACATION THIS MORNING FOR 2 HOURS. FOLLOWED COMMANDS, TRACKED TO SOUND, AND MOVED ALL EXTREMITIES/NODS HEAD "YES/NO" WHEN SEDATION IS OFF. REQUIRED RESEDATING DUE TO INCREASED RESPIRATORY RATE, AGITATION, AND DECREASED SPO2. PROPOFOL NOW @ 60 MCG/KG/HR, HEPARIN DC'D AND SWITCHED TO LOVENOX SC. PATIENT VENTILATOR SETTINGS INCREASED TODAY DUE TO DECREASED SPO2-AC/VC+ 18/440/14/80% TO MAINTAIN SPO2 GREATER THAN 88% PER DR. BLAKELY. ETT SECRETIONS HAVE DECREASED AND MINIMAL COARSENESS AUSCULTATED IN LUNGS. TF TURNED OFF THIS MORNING DUE TO SEVERE ABD DISTENTION, FIRMNESS, AND HYPOACTIVE BT. PATIENT STARTED ON REGLAN AND HAD ONE LARGE LIQUID BM. ABD TOWARDS END OF SHIFT IS SOFTER TO PALPATION. GLASS REMAINS PATENT AND DRAINING TO GRAVITY-OVER 2L URINE OUT. NS 500ML BOLUS ADMINISTERED PER EMAR THIS SHIFT PER DR. BLAKELY ORDER. ECHO COMPLETED WITH EF > 70%. PATIENTS BROTHER, SURINDER, AT BEDSIDE MOST OF THE DAY. TOBY AND ACE UPDATED ON PATIENT STATUS. NO OTHER CHANGES THIS SHIFT.
[2024-01-26] MEDS ORDERED: Ketamine HCL 1,000 MG in NS 100 ML IV SCH (21:05)
[2024-01-27] VITALS (78 sets, daily range): BP systolic 101–148; BP diastolic 66–99
--- NOTE | 2024-01-27 10:21 | NUR ---
INITIAL ASSESSMENT PATIENT INTUBATED AND ON SEDATION. PATIENT RESPONDS TO NOXIOUS STIMULI AND NURSING CARE WITH GRIMACING. PATIENT AFEBRILE. NO SIGNS OF PAIN NOTED AT THIS TIME. PATIENT ON VENT SETTINGS OF ACVC 18, TV 440, PEEP 14 AND 75% FIO2. LUNGS CLEAR IN UPPER LOBES AND DIM IN LOWER LOBES. SCANT AMOUNT OF THICK, RED SECRETIONS SUCTIONED FROM ETT. PATIENT IN SR, HR 60S TO 70S. SBP 130S TO 140S. 1+ EDEMA NOTED TO BUES AND BLES. RECTAL TUBE IN PLACE FOR LOOSE STOOLS. PATIENT GETTING SCHEDULED LACTULOSE. ABD SEVERLY DISTENDED, FIRM. TF HAS BEEN ON SB. GLASS DRAINING TAMEKA COLORED URINE. PROPOFOL AT 60 MCG/ KG/ MINUTE AND VERSED 2 MG/ KG/ HOUR. BROTHER AT BEDSIDE. CARE CONTINUES.
--- NOTE | 2024-01-27 12:00 | NUR ---
PATIENT AFEBRILE. HR 60S TO 70S. SBP 1-TEENS TO 120S. FIO2 AT 100%. CARE CONTINUES.
[2024-01-27] MEDS ORDERED: Protein Supplement 30 ML UD PT SCH (13:00)
--- NOTE | 2024-01-27 16:50 | NUR ---
PATIENT AFEBRILE. HR 70S TO 80S. SBP IN THE LOW 100S. VITAL AF STARTED AT 10 MLS/ HOUR AND 200 ML WATER FLUSH Q4H. PROPOFOL AT 40 MCG/ KG/ MINUTE, KETAMINE AT 2 MCG/ KG/ HOUR. PATIENT APPEARS COMFORTABLE AT THIS TIME. CARE CONTINUES.
--- NOTE | 2024-01-27 17:45 | NUR ---
SHIFT SUMMARY PATIENT REMAINED AFEBRILE. PATIENT REMAINED INTUBATED AND SEDATED AND RESPONDING TO NOXIOUS STIMULI/ NURSING CARE. PATIENT DID HAVE SHORT SEDATION VACATION (AROUND 1 HOUR) BUT THEN HAD TO BE RESEDATED FOR INCREASED AGITATION. PATIENT WAS ABLE TO BLINK EYES AND LOOK AT NURSE BRIEFLY ON COMMAND. PATIENT REMAINS ON AC 18, TV 440, PEEP 14 AND FIO2 INCREASED FROM 75 TO 100%. LUNGS REMAINED CLEAR AND DIM. PATIENT HAD SCANT TO MODERATE AMOUNTS OF THIN TO THICK SPUTUM BEING SUCTIONED FROM ETT. PATIENT REMAINED IN SR, HR 60S TO 80S. SBP LOW 100S TO 140S. RECTAL TUBE REMAINS DRAINING BROWN, LOOSE STOOL. LACTULOSE DC'D THIS SHIFT. VITAL AF STARTED AT 10 MLS/ HOUR WITH 200 ML WATER FLUSH Q4H. ABD CT PERFORMED THIS SHIFT ABD REMAINS DISTENDED AND FIRM. OG RESIDUAL THIS AM ONLY 80 MLS. GLASS HAD GOOD URINE OUTPUT. PROPOFOL AT 40 MCG/ KG/ MINUTE AND KETAMINE AT 2 MG/ KG/ HOUR AT THIS TIME. PATIENT'S BROTHER, SURINDER, IN ROOM MOST OF THE DAY. EX Jack NAVARRO CALLED TO CHECK UP ON PATIENT THIS SHIFT. PATIENT APPEARS COMFORTABLE AT THIS TIME. BED LOW, CALL LIGHT IN REACH. CARE CONTINUES.
[2024-01-28] VITALS (94 sets, daily range): BP systolic 95–154; BP diastolic 53–98
[2024-01-28 05:26] LABS: BASOPHILS ABSOLUTE AUTO 0.12 K/mm3 (0.00-0.23); BASOPHILS PERCENT AUTO 1 % (0-2); EOSINOPHILS ABSOLUTE AUTO 0.12 K/mm3 (0.00-0.68); EOSINOPHILS PERCENT AUTO 1 % (0-6); Hematocrit 38.1 % (37.0-53.0); IMMATURE GRAN ABSOLUTE AUTO 0.36 K/mm3 (0.00-0.10); IMMATURE GRAN PERCENT AUTO 2 % (0-1); LYMPHOCYTES PERCENT AUTO 5 % (21-46); MONOCYTES ABSOLUTE AUTO 1.53 K/mm3 (0.16-1.47); MONOCYTES PERCENT AUTO 10 % (4-13); Mean Corpuscular HGB 32.2 pg (26.0-34.0); Mean Corpuscular HGB Conc 31.5 g/dL (31.5-36.5); Mean Corpuscular Volume 102 fL (80-100); Mean Platelet Volume 10.2 fL (9.1-12.4); NEUTROPHILS ABSOLUTE AUTO 12.04 K/mm3 (1.96-9.15); NEUTROPHILS PERCENT AUTO 81 % (41-73); NRBC ABSOLUTE 0.02 K/mm3 (0.00-0.02); NRBC Auto 0.1 /100 WBC (0.0-0.2); Platelet Count 370 K/mm3 (150-400); RDW Coefficient Variation 13.6 % (11.7-14.2); RDW Standard Deviation 51.6 fL (35.1-46.3); Red Blood Cell Count 3.73 M/mm3 (4.30-5.90); White Blood Cell Count 14.97 K/mm3 (4.00-11.30)
--- NOTE | 2024-01-28 05:26 | NUR ---
SHIFT SUMMARY PATIENT ON KETAMINE 2MG/KG/HR AND PROPOFOL 50MCG/KG/MIN. PATIENT BECOME AGITATED GAVE PRN MEDS DILAUDID 1MG AND ATIVAN 2MG. AFTER PRN MEDS PATIENT RESTED COMFORTABLE. UNABLE TO FOLLOW COMMANDS, RED TINGED THICK SPUTUM DOCTOR AWARE. UPPER LOBES OF LUNGS CLEAR LOWER LOBES DIMINSHED, HR STABLE IN THE 90'S AND SBP IN THE 130'S. UPPER EXTERMITIES SWOLLEN ELEVATED WITH PILLOWS, RADIAL PULSES STRONG AND PEDAL PULSES WEAK. GLASS PATENT AND DRAINING TO GRAVITY. RECTAL TUBE DRAINING BROWN LIQUID STOOL TO GRAVITY. WILL CONTINUE TO MONITOR.
[2024-01-28 06:05] LABS: Albumin, Blood 2.9 g/dL (3.4-5.0); Anion Gap 10 mmol/L (3-11); Blood Urea Nitrogen 13 mg/dL (8-24); Bun/Creatinine Ratio 20.4 (12.0-20.0); CO2, Blood 24 mmol/L (21-32); Calcium, Blood 8.9 mg/dL (8.5-10.1); Chloride, Blood 113 mmol/L (98-108); Creatinine, Blood 0.64 mg/dL (0.60-1.20); Glomerular Filtration Rate 114 (60-); Glucose, Blood 99 mg/dL (70-99); Phosphorus, Blood 2.9 mg/dL (2.5-4.9); Sodium, Blood 143 mmol/L (136-145); Vancomycin, Trough 17.7 ug/mL (5.0-10.0)
--- NOTE | 2024-01-28 08:00 | NUR ---
INITIAL ASSESSMENT PATIENT INTUBATED AND ON SEDATION. PATIENT RESPONDING TO NOXIOUS STIMULI AND NURSING CARE WITH GRIMACING OF FACE AND SLIGHT MOVEMENT OF EXTREMITIES. PATIENT AFEBRILE. NO SIGNS OF PAIN NOTED AT THIS TIME. PATIENT ON VENT SETTINGS OF AC 18, TV 440, PEEP 14 AND 100% FIO2. LUNGS CLEAR IN UPPER LOBES AND DIMINISHED IN LOWER LOBES. MODERATE AMOUNT OF THICK, BLOODY SECRETIONS BEING SUCTIONED FROM ETT THIS AM. PATIENT IN SR, 90S. SBP IN THE 120S. PATIENT EDEMATOUS. ABD SEVERLY DISTENDED, FIRM, HYPOACTIVE BOWEL SOUNDS NOTED. RECTAL TUBE IN PLACE WITH LOOSE STOOLS. TF INFUSING AT 10 MLS/ HOUR WITH 200 MLS WATER FLUSH Q4H. RESIDUAL OF 110 MLS OBTAINED AND REINSTILLED. GLASS DRAINING TAMEKA COLORED URINE. SKIN GUSTAVO AND DIAPHORETIC. PROPOFOL INFUSING AT 50 MCG/ KG/ MINUTE AND KETAMINE AT 2 MG/ KG/ HOUR. BROTHER AT BEDSIDE. BED LOW, CALL LIGHT IN REACH. CARE CONTINUES.
[2024-01-28] MEDS ORDERED: Lactulose 20 GM/30 ML UDC PT SCH (09:00)
--- NOTE | 2024-01-28 13:15 | NUR ---
TEMP PROBE PLACED ALONG OG AND READING TEMP OF 99.6 DEGREES FAHRENHEIT. PATIENT EXTREMELY DIAPHORETIC. HR IN THE 60S. SBP IN THE LOW 100S. PATIENT REMAINS SEDATED. PEEP AT 14 AND FIO2 AT 90%. CARE CONTINUES.
--- NOTE | 2024-01-28 16:00 | NUR ---
PATIENT HAS CORE TEMP OF 99.6 DEGREES FAHRENHEIT. HR IN THE 70S. SBP IN THE LOW 100S. CARE CONTINUES.
--- NOTE | 2024-01-28 18:22 | NUR ---
INFORMED DR. BLAKELY THAT PATIENT O2 SATS DROPPED FROM MID 90S TO 83% WITHOUT ANY SEEN CAUSE FOR; PATIENT NOT REPOSITIONED AND NO ONE IN ROOM WITH PATIENT. DR. BLAKELY INFORMED THAT PATIENT NOW HAS TEMP OF 101.3 DEGREES FAHRENHEIT. ORDERS RECEIVED.
[2024-01-28] MEDS ORDERED: Acetaminophen 160MG / 5ML 10.15 UDC PT PRN (18:25)
[2024-01-28 18:52] LABS: PCO2 Arterial 39.9 mmHg (35-45); pH Blood Arterial 7.38 (7.35-7.45)
--- NOTE | 2024-01-28 19:03 | NUR ---
SHIFT SUMMARY PATIENT REMAINED INTUBATED AND ON SEDATION. PATIENT REMAINED ON PROPOFOL AND KETAMINE FOR SEDATION AND ALSO GIVEN PRNS. TEMP PROBE INSERTED ALONG OG THIS SHIFT AND PATIENT NOW HAS TMAX OF 102 DEGREES FAHRENHEIT. ORDER FOR TYLENOL RECEIVED AND GIVEN. PRN DILAUDID GIVEN FOR SIGNS OF PAIN. PATIENT PEEP RANGED FROM 10 TO 16 AND FIO2 FROM 60% TO 100%. SHORT TIME AGO PATIENT'S SATS DROPS SPONTANEOUSLY FROM 95% TO 83% THEREFORE PEEP INCREASED TO 16 AND FIO2 TO 100%. DR. BLAKELY INFORMED. ABG OBTAINED. REDDY TO CALL BACK AT 1930 TO CHECK BACK UP ON PATIENT. LUNGS REMAINED CLEAR IN UPPER LOBES AND DIM IN LOWER LOBES. PATIENT CONTINUED TO HAVE BLOODY SECRETIONS FROM ETT; THICK TO THIN. PATIENT REMAINED IN SR, HR 60S TO 90S. SBP 90S TO 150S. RECTAL TUBE DRAINED 50 MLS OF LOOSE STOOL. TF REMAINED AT 10 MLS/ HOUR. GLASS DRAINED 1000 MLS OF TAMEKA/ GREEN COLORED URINE. NEW SPUTUM AND BLOOD CULTURES ORDERED THIS SHIFT. PATIENT'S BROTHER, SURINDER, HERE MOST OF THE DAY. REPORT GIVEN TO ASSUMING SPECIALTY DEVELOPMENT CONSULTANT NURSE.
--- NOTE | 2024-01-28 20:21 | NUR ---
ASSUMED CARE AT 1900 PATIENT IS INTUBATED AND SEDATED ON PROPOFOL AND KETAMINE, PRN MEDS PER EMAR FOR AGITATION. RESPONDS TO PAINFUL STIMULI. SP02 98% ON VENT RR 20, VENT AC VC+ 18/440/16/100%. MODERATE THICK RED SPUTUM SUCTIONED FROM ETT. LS CLEAR TO DIMINISHED. HR SR 80s, BP STABLE. OG WITH TF VITAL AF AT CURRENT GOAL RATE OF 10 MLS/HR, 200 MLS WATER FLUSHES EVERY 4 HOURS. ORAL TEMP PROBE, TEMP 101.1, DAYSHIFT RN MEDICATED WITH TYLENOL. GLASS PATENT AND DRAINING TAMEKA URINE TO GRAVITY. RECTAL TUBE WITH MINIMAL LIQUID BROWN OUTPUT. MINIMAL REPOSITIONING DUE TO RESPIRATORY STATUS. FAMILY AT BEDSIDE AT START OF SHIFT.
--- NOTE | 2024-01-28 22:53 | NUR ---
REPOSITIONED PATIENT TO THE LEFT SIDE AND PATIENT OVER THE NEXT 30 MINUTES STARTED TO DESAT TO 87%, SUCTIONED LARGE AMOUNT OF THICK RED MUCOUS FROM ETT. REPOSITIONED BACK TO THE RIGHT SIDE AND SP02 >90%.
[2024-01-29] VITALS (35 sets, daily range): BP systolic 105–138; BP diastolic 58–89
[2024-01-29 00:45] LABS: Source, Urine Foley catheter
[2024-01-29 00:48] LABS: Appearance, Urine Cloudy (Clear); Bilirubin, Urine Neg (Neg); Blood, Urine 4+ (Neg); Color, Urine Yellow (P-Yellow); Glucose Qualitative, Urine Neg (Neg); Ketones, Urine Neg (Neg); Leukocyte Esterase, Urine 3+ (Neg); Nitrite, Urine Neg (Neg); Protein, Urine 2+ (Neg); Urobilinogen, Urine 2+ (Normal)
--- NOTE | 2024-01-29 00:54 | NUR ---
PATIENTS TEMP CONTINUES TO INCREASE, CHANGED GLASS OUT FOR A TEMP GLASS TO MAKE SURE ACCURATE TEMP READING, TEMP CURRENTLY 103.5, NEW UA SENT. ICE PACKS AND FAN ON PATIENT. TYLENOL GIVEN.
[2024-01-29 00:55] LABS: Bacteria Many /hpf; Squamous Epithelial Cells Few /hpf (Few); White Blood Cells, Urine 50-100 /hpf (0-5)
[2024-01-29 04:05] LABS: BASOPHILS ABSOLUTE AUTO 0.13 K/mm3 (0.00-0.23); BASOPHILS PERCENT AUTO 1 % (0-2); EOSINOPHILS ABSOLUTE AUTO 0.19 K/mm3 (0.00-0.68); EOSINOPHILS PERCENT AUTO 1 % (0-6); Hematocrit 37.3 % (37.0-53.0); Hemoglobin 11.9 g/dL (13.5-17.5); IMMATURE GRAN ABSOLUTE AUTO 0.34 K/mm3 (0.00-0.10); IMMATURE GRAN PERCENT AUTO 2 % (0-1); LYMPHOCYTES ABSOLUTE AUTO 0.82 K/mm3 (0.84-5.20); LYMPHOCYTES PERCENT AUTO 5 % (21-46); MONOCYTES ABSOLUTE AUTO 2.08 K/mm3 (0.16-1.47); MONOCYTES PERCENT AUTO 12 % (4-13); Mean Corpuscular HGB 32.2 pg (26.0-34.0); Mean Corpuscular HGB Conc 31.9 g/dL (31.5-36.5); Mean Corpuscular Volume 101 fL (80-100); Mean Platelet Volume 10.1 fL (9.1-12.4); NEUTROPHILS ABSOLUTE AUTO 14.06 K/mm3 (1.96-9.15); NEUTROPHILS PERCENT AUTO 80 % (41-73); NRBC ABSOLUTE 0.03 K/mm3 (0.00-0.02); NRBC Auto 0.2 /100 WBC (0.0-0.2); Platelet Count 429 K/mm3 (150-400); RDW Coefficient Variation 13.8 % (11.7-14.2); RDW Standard Deviation 51.2 fL (35.1-46.3); White Blood Cell Count 17.62 K/mm3 (4.00-11.30)
[2024-01-29 04:29] LABS: Albumin, Blood 2.7 g/dL (3.4-5.0); Anion Gap 10 mmol/L (3-11); Blood Urea Nitrogen 17 mg/dL (8-24); Bun/Creatinine Ratio 28.1 (12.0-20.0); CO2, Blood 24 mmol/L (21-32); Calcium, Blood 8.8 mg/dL (8.5-10.1); Chloride, Blood 110 mmol/L (98-108); Creatinine, Blood 0.61 mg/dL (0.60-1.20); Glomerular Filtration Rate 116 (60-); Glucose, Blood 100 mg/dL (70-99); Phosphorus, Blood 3.7 mg/dL (2.5-4.9); Potassium, Blood 4.1 mmol/L (3.5-5.5); Sodium, Blood 140 mmol/L (136-145)
--- NOTE | 2024-01-29 05:50 | NUR ---
SHIFT SUMMARY PATIENT REMAINS INTUBATED AND SEDATED ON PROPOFOL AND KETAMINE, PRN ATIVAN GIVEN FOR AGITATION/VENT COMPLIANCE. PATIENT NOT TOLERATING TURNS WELL, DESATS TO THE MID TO LOW 80s, LARGE AMOUNT OF THICK NATI RED SPUTUM SUCTIONED FROM ETT. PATIENT DID NOT DO WELL ON LEFT SIDE. SP02 98% ON VENT AC VC 18/440/16/100% LAYING ON HIS RIGHT SIDE. HR SR/SINUS ARRHYTHMIA 80s, BP STABLE. OG WITH TUBE FEED VITAL AF INFUSING AT 10 MLS/HR AND 200 MLS FLUSHES Q4 HOURS. RECTAL TUBE WITH LIQUID LIGHT BROWN OUTPUT. TEMP GLASS PATENT AND DRAINING TO GRAVITY.
[2024-01-29] MEDS ORDERED: NS 1,000 ML IV ONE ×2 (09:30→09:50)
[2024-01-29] MEDS ORDERED: NS 1,000 ML IV SCH (09:45)
[2024-01-29] MEDS ORDERED: Piperacillin/Tazobactam Sod 3.375 GM in NS 100 ML IV SCH (10:17)
[2024-01-29 11:14] LABS: PCO2 Arterial 40.6 mmHg (35-45); PO2 Arterial 70.2 mmHg (80-100); pH Blood Arterial 7.36 (7.35-7.45)
--- NOTE | 2024-01-29 12:08 | NUR ---
Case Conference: Spoke with both pt's brother and medical POA Josey. While Josey has reiterated that the pt's brother is not authorized to make any medical decisions, she states the two of them have been communicating regularly and are working together on decision making. In the event they disagree however, Josey will remain the sole decision maker as pt's medical POA.
--- NOTE | 2024-01-29 18:21 | NUR ---
Summary. Pt remains sedated and ventilated. No sedation vacation today per Dr. Morin. Fi02 titrated down slightly, see RT assessments. No acute events, see chart for further details.
--- NOTE | 2024-01-29 20:00 | NUR ---
ASSUMED CARE OF PT AT 1900. REPORT RECEIVED AT BEDSIDE. PT PRESENTS IN BED INTUBATED. AC 18, Tv 440, PEEP 16, FIO2 60%. PT MAINTAINS SATURATIONS > 90 PERCENT. HAVE SUCTIONED PT WITH RETURN OF NATI BLOOD SECRETIONS. PT DOES HAVE FEVER THAT HAS BEEN PREVIOUSLY MEDICATED WITH TYLENOL. TUBE FEEDING AT GOAL. WILL REVIEW CHART AND PLAN OF CARE FOR THIS PT.
--- NOTE | 2024-01-29 22:30 | NUR ---
DR BLAKELY CALLS TO CHECK ON PT. REITERATES THAT HE DOES NOT WANT TO DO SEDATION VACATION IN AM ON THIS SHIFT. WILL READRESS IN AM. PT CONTINUES TO HAVE BLOODY SECRETIONS FROM ETT. WILL CONTINUE TO MONITOR.
--- NOTE | 2024-01-30 01:08 | NUR ---
FULL BEDBATH DONE. PT TOLERATES FAIR. MEDICATED WITH SCHEDULED ATIVAN POST BEDBATH. PT CONTINUES TO MAINTAIN > 90 PERCENT SATURATIONS WITH CURRENT SETTINGS. HAVE DECREASED FIO2 FROM 60 PERCENT TO 55 PERCENT.
[2024-01-30 04:32] LABS: BASOPHILS ABSOLUTE AUTO 0.12 K/mm3 (0.00-0.23); BASOPHILS PERCENT AUTO 1 % (0-2); EOSINOPHILS PERCENT AUTO 1 % (0-6); Hemoglobin 11.2 g/dL (13.5-17.5); IMMATURE GRAN ABSOLUTE AUTO 0.22 K/mm3 (0.00-0.10); IMMATURE GRAN PERCENT AUTO 1 % (0-1); LYMPHOCYTES ABSOLUTE AUTO 0.78 K/mm3 (0.84-5.20); LYMPHOCYTES PERCENT AUTO 5 % (21-46); MONOCYTES ABSOLUTE AUTO 1.53 K/mm3 (0.16-1.47); MONOCYTES PERCENT AUTO 10 % (4-13); Mean Corpuscular HGB 31.9 pg (26.0-34.0); Mean Corpuscular Volume 100 fL (80-100); Mean Platelet Volume 10.1 fL (9.1-12.4); NEUTROPHILS ABSOLUTE AUTO 12.56 K/mm3 (1.96-9.15); NEUTROPHILS PERCENT AUTO 82 % (41-73); NRBC ABSOLUTE 0.02 K/mm3 (0.00-0.02); NRBC Auto 0.1 /100 WBC (0.0-0.2); Platelet Count 467 K/mm3 (150-400); RDW Coefficient Variation 13.9 % (11.7-14.2); Red Blood Cell Count 3.51 M/mm3 (4.30-5.90); White Blood Cell Count 15.41 K/mm3 (4.00-11.30)
[2024-01-30 05:06] LABS: Alanine Aminotransfer (ALT/SGP 161 U/L (12-78); Albumin, Blood 2.4 g/dL (3.4-5.0); Albumin/Globulin Ratio 0.6 (0.8-1.8); Alk Phos 283 U/L (50-136); Anion Gap 11 mmol/L (3-11); Aspartate Aminotrans (AST/SGOT 62 U/L (12-37); Bilirubin, Direct 0.5 mg/dL (0.0-0.3); Bilirubin, Indirect 0.3 mg/dL (0.1-0.7); Bilirubin, Total 0.8 mg/dL (0.1-1.0); Blood Urea Nitrogen 14 mg/dL (8-24); Bun/Creatinine Ratio 24.6 (12.0-20.0); CO2, Blood 22 mmol/L (21-32); Calcium, Blood 8.5 mg/dL (8.5-10.1); Chloride, Blood 114 mmol/L (98-108); Creatinine, Blood 0.57 mg/dL (0.60-1.20); Globulin, Blood 4.3 g/dL (2.2-4.0); Glomerular Filtration Rate 118 (60-); Glucose, Blood 100 mg/dL (70-99); Phosphorus, Blood 2.4 mg/dL (2.5-4.9); Potassium, Blood 3.7 mmol/L (3.5-5.5); Sodium, Blood 143 mmol/L (136-145); Total Protein, Blood 6.7 g/dL (6.4-8.2); Vancomycin, Trough 16.7 ug/mL (5.0-10.0)
--- NOTE | 2024-01-30 06:12 | NUR ---
PT HAS HAD LABILE TEMPERATURES THIS NIGHT. HAS BEEN MEDICATED TWICE WITH TYLENOL TO REDUCE FEVER. FAN PLACED TO ASSIST. CONTINUES ON PROPOFOL AT 50 MCG'S AND KETAMINE AT 2 MG/KG/HOUR. PT STILL NEEDS ADDITIONAL ATIVAN FOR VENT TOLERANCE. SECRETIONS REMAIN BLOODY FROM ETT. WILL CONTINUE TO MONITOR PT, AND WILL REPORT OFF TO ONCOMING RN.
--- NOTE | 2024-01-30 07:00 | NUR ---
ASSUMPTION OF CARE PT RECEIVING PROPOFOL 50MCG/KG/MIN AND KETAMINE 2MG/KG/HR. HE REMAINS INTUBATED WITH VENT SETTINGS AC/VC 18/440/16/55%. RASS -2, COUGH AND GAG INTACT. PT IS HAVING RED ETT SECRETIONS. LUNGS ARE RHONCHI, DIMINISHED IN BASES. NSR ON MONITOR WITH RATEIN 70S. L RADIAL ART LINE IN PLACE, MAP >65. TUBE FEEDING INFUSING VIA OGT AT 10ML/HR. GLASS PATENT AND DRAINING TO GRAVITY. CORE TEMP 101.5.
--- NOTE | 2024-01-30 15:01 | NUR ---
UPDATE PROPOFOL AT 35MCG/KG/MIN AND KETAMINE 2MG/KG/HR. PT OPENS EYES SPONTANEOUSLY, TRACKS MOVEMENTS. PT ABLE TO NOD/SHAKE HEAD TO ANSWER QUESTIONS. PT HAS STRONG EQUAL HAND FLORAL DEPARTMENT SPECIALIST. PT ABLE TO WEAKLY WIGGLE TOES. PT TOLERATING LOWER SEDATION WITH PRN ATIVAN AND DILAUDID.
--- NOTE | 2024-01-30 17:54 | NUR ---
SHIFT SUMMARY PT RECEIVING PROPOFOL 40MCG/KG/MIN AND KETAMINE 2MG/KG/HR. HE REMAINS INTUBATED WITH VENT SETTINGS AC/VC+ 18/440/16/55%. SEDATION TITRATED TO 25MCG/KG/MIN AND KETAMINE 2MG/KG/HR PT OPENED EYES SPONTANEOUSLY, TRACKED MOVEMENTS, ANSWERED QUESTIONS BY NODDING/SHAKING HEAD, AND FOLLOWED SIMPLE COMMANDS. SEDATION TITRATED BACK UP FOR COMFORT. HE CONTINUES TO HAVE RED ETT SECRETIONS. LUNGS ARE COARSE. NSR ON MONITOR WITH RATE IN 70S-80S. L RADIAL ART LINE WNL. MAP >65. TUBE FEEDING INFUSING AT GOAL RATE OF 17ML/HR WITH 200ML H2O Q4HRS. RECTAL TUBE PATENT AND DRAINING LIQUID BROWN STOOL TO GRAVITY WITH 200ML OUTPUT. GLASS PATENT AND DRAINING TAMEKA URINE TO GRAVITY. 1200ML URINE OUTPUT. TMAX 101.5, MEDICATED PER EMAR AND FAN IN PLACE. CURRENT CORE TEMP 99.3.
--- NOTE | 2024-01-30 20:00 | NUR ---
ASSUMED CARE OF PT AT 1900. REPORT RECEIVED AT BEDSIDE. PT PRESENTS IN BED. INTUBATED. AC/VC+ 18, Tv 440, FIO2 55% PEEP 16. PT MAINTAINS SATURATIONS > 90 PERCENT WITH THESE SETTINGS. PROPOFOL AT 50 MCG'S/KG/MIN AND KETAMINE DRIP AT 2MG/KG/HOUR FOR SEDATION. PT OPENS EYES MOMENTARILY WITH SUCTIONING. LUNGS CLEAR IN UPPER LOBES. DIMINISHED IN BASES. NO ADVANTAGES LUNG SOUNDS NOTED. WILL CONTINUE TO MONITOR PT. WILL REVIEW CHART AND PLAN OF CARE FOR THIS PT.
--- NOTE | 2024-01-31 03:24 | NUR ---
AFTER TURNING PT TO HIS LEFT DURING EVENING - PT BECOMES DISTRESSED. DESATURATIONS INTO LOW 80 PERCENTS. SUCTIONING DONE WITH LARGE AMOUNT OF RED COLORED SECRETIONS. PT INCREASED TO 80 PERCENT FIO2 TO MAINTAIN SATURATIONS > 90 PERCENT. HAVE BEEN ABLE TO TITRATE FIO2 TO 70 PERCENT WITH GOOD RESULTS. WILL CONTINUE TO MONITOR PT.
[2024-01-31 04:16] LABS: BASOPHILS ABSOLUTE AUTO 0.13 K/mm3 (0.00-0.23); BASOPHILS PERCENT AUTO 1 % (0-2); EOSINOPHILS ABSOLUTE AUTO 0.33 K/mm3 (0.00-0.68); EOSINOPHILS PERCENT AUTO 3 % (0-6); Hematocrit 33.6 % (37.0-53.0); Hemoglobin 10.8 g/dL (13.5-17.5); IMMATURE GRAN ABSOLUTE AUTO 0.13 K/mm3 (0.00-0.10); IMMATURE GRAN PERCENT AUTO 1 % (0-1); LYMPHOCYTES ABSOLUTE AUTO 0.87 K/mm3 (0.84-5.20); LYMPHOCYTES PERCENT AUTO 7 % (21-46); MONOCYTES ABSOLUTE AUTO 1.13 K/mm3 (0.16-1.47); MONOCYTES PERCENT AUTO 10 % (4-13); Mean Corpuscular HGB Conc 32.1 g/dL (31.5-36.5); Mean Corpuscular Volume 99 fL (80-100); Mean Platelet Volume 10.1 fL (9.1-12.4); NEUTROPHILS ABSOLUTE AUTO 9.16 K/mm3 (1.96-9.15); NEUTROPHILS PERCENT AUTO 78 % (41-73); Platelet Count 501 K/mm3 (150-400); RDW Coefficient Variation 14.1 % (11.7-14.2); RDW Standard Deviation 51.3 fL (35.1-46.3); Red Blood Cell Count 3.38 M/mm3 (4.30-5.90); White Blood Cell Count 11.75 K/mm3 (4.00-11.30)
[2024-01-31 04:44] LABS: Albumin, Blood 2.3 g/dL (3.4-5.0); Anion Gap 11 mmol/L (3-11); Blood Urea Nitrogen 13 mg/dL (8-24); Bun/Creatinine Ratio 25.8 (12.0-20.0); CO2, Blood 23 mmol/L (21-32); Calcium, Blood 8.6 mg/dL (8.5-10.1); Chloride, Blood 112 mmol/L (98-108); Glomerular Filtration Rate 123 (60-); Glucose, Blood 95 mg/dL (70-99); Phosphorus, Blood 3.1 mg/dL (2.5-4.9); Potassium, Blood 3.6 mmol/L (3.5-5.5); Sodium, Blood 142 mmol/L (136-145)
[2024-01-31 04:49] LABS: PCO2 Arterial 32.9 mmHg (35-45); PO2 Arterial 61.6 mmHg (80-100); pH Blood Arterial 7.44 (7.35-7.45)
--- NOTE | 2024-01-31 07:00 | NUR ---
ASSUMPTION OF CARE PT RECEIVING PROPOFOL 50MCG/KG/MIN AND KETAMINE 2MG/KG/HR. HE REMAINS INTUBATED WITH VENT SETTINGS AC/VC+ 18/440/16/70%. DURING BEDSIDE REPORT PT SATS MAINTAINING 87-89%. ORAL AND ETT SUCTIONED WITHOUT IMPROVEMENT, FIO2 TITRATED TO 80% AND RT NOTIFIED. TUBE FEEDING INFUSING AT GOAL RATE VIA OGT. RECTAL TUBE PATENT. NSR ON MONITOR WITH RATE IN 70S, MAP >65 PER L RADIAL ART LINE. GLASS PATENT AND DRAINING TAMEKA URINE TO GRAVITY. BROTHER AT BEDSIDE AND UPDATED.
--- NOTE | 2024-01-31 17:31 | NUR ---
SHIFT SUMMARY PT RECEIVING PROPOFOL 45MCG/KG/MIN AND KETAMINE 2MG/KG/HR. HE REMAINS INTUBATED WITH VENT SETTINGS AC/VC+ 16/440/16/50%. RASS -2/-3. PT IS HAVING LESS RED ETT SECRETIONS THAN YESTERDAY. ETT PATSY AND CIRCUIT CHANGED BY RT TODAY AND HAS IMPROVED CUFF LEAK. LUNGS ARE COARSE. TUBE FEEDING INFUSING VIA OGT AT GOAL RATE. RECTAL TUBE PATENT WITH MINIMAL DRAINAGE IN TUBING. TEMP GLASS PATENT AND DRAINING YELLOW/GREEN URINE TO GRAVITY. BROTHER AT [facility] MOST OF THE DAY AND UPDATED.
--- NOTE | 2024-01-31 19:09 | NUR ---
ASSUMED CARE OF PT AT 1900. REPORT RECEIVED AT BEDSIDE. PT PRESENTS IN BED INTUBATED. FIO2 AT 50 PERCENT. PT IN NO APPARENT DISTRESS. PROPOFOL AND KETAMINE FOR SEDATION. WILL REVIEW CHART AND PLAN OF CARE FOR THIS PT.
--- NOTE | 2024-01-31 21:43 | NUR ---
AFTER TURNING PT TO HIS LEFT, PT DESATURATES AGAIN INTO MID 80 PERCENTS. INCREASE FIO2 TO 70 PERCENT. SUCTIONING DONE WITH SMALL AMOUNT OF RED COLORED SECRETIONS. HAVE DONE BED CPT FOR 15 MINUTES WHICH PT TOLERATES. WILL TITRATE FIO2 ABLE. RESPIRATORY THERAPY, ALLYN GOODMAN. WILL CONTINUE TO MONITOR.
--- NOTE | 2024-02-01 03:59 | NUR ---
FULL BEDBATH DONE WITH LINEN CHANGE. PT TOLERATES THIS WELL. DOES ELICIT COUGH WITH TURNS. SUCTIONING DONE WITH RETURN OF BLOODY SECRETIONS. PT DOES HAVE TEMP MAX TO 102.0 THIS NIGHT. PERSONAL FAN PLACED, AND TYLENOL GIVEN PER OGT. SEE VITAL SIGHN FLOWSHEET FOR DETAILS.
[2024-02-01 04:30] LABS: BASOPHILS ABSOLUTE AUTO 0.18 K/mm3 (0.00-0.23); BASOPHILS PERCENT AUTO 2 % (0-2); EOSINOPHILS ABSOLUTE AUTO 0.35 K/mm3 (0.00-0.68); EOSINOPHILS PERCENT AUTO 3 % (0-6); Hematocrit 33.1 % (37.0-53.0); Hemoglobin 10.6 g/dL (13.5-17.5); IMMATURE GRAN ABSOLUTE AUTO 0.11 K/mm3 (0.00-0.10); IMMATURE GRAN PERCENT AUTO 1 % (0-1); LYMPHOCYTES ABSOLUTE AUTO 0.84 K/mm3 (0.84-5.20); LYMPHOCYTES PERCENT AUTO 7 % (21-46); MONOCYTES ABSOLUTE AUTO 0.97 K/mm3 (0.16-1.47); MONOCYTES PERCENT AUTO 8 % (4-13); Mean Corpuscular HGB 31.8 pg (26.0-34.0); Mean Corpuscular Volume 99 fL (80-100); Mean Platelet Volume 10.2 fL (9.1-12.4); NEUTROPHILS ABSOLUTE AUTO 9.37 K/mm3 (1.96-9.15); NEUTROPHILS PERCENT AUTO 79 % (41-73); Platelet Count 551 K/mm3 (150-400); RDW Coefficient Variation 14.2 % (11.7-14.2); RDW Standard Deviation 51.3 fL (35.1-46.3); Red Blood Cell Count 3.33 M/mm3 (4.30-5.90); White Blood Cell Count 11.82 K/mm3 (4.00-11.30)
[2024-02-01 04:59] LABS: Albumin, Blood 2.3 g/dL (3.4-5.0); Anion Gap 10 mmol/L (3-11); Blood Urea Nitrogen 13 mg/dL (8-24); Bun/Creatinine Ratio 23.3 (12.0-20.0); CO2, Blood 23 mmol/L (21-32); Calcium, Blood 8.7 mg/dL (8.5-10.1); Chloride, Blood 112 mmol/L (98-108); Creatinine, Blood 0.56 mg/dL (0.60-1.20); Glomerular Filtration Rate 119 (60-); Glucose, Blood 99 mg/dL (70-99); Phosphorus, Blood 3.4 mg/dL (2.5-4.9); Potassium, Blood 3.5 mmol/L (3.5-5.5); Sodium, Blood 141 mmol/L (136-145)
--- NOTE | 2024-02-01 06:34 | NUR ---
PT HAS NEEDED INCREASE IN FIO2 THIS NIGHT. TOWARDS MORNING HAVE NOTED INCREASE IN AMOUNT OF SECRETIONS RETURNED FROM ETT. TEMP MAX FOR THIS SHIFT 102.0 CURRENTLY AT 100.9. HAVE TURNED PT RIGHT AND SUPINE MOSTLY THIS SHIFT. TO THE LEFT SEVERAL TIMES. FIRST TIME, PT HAS DESATURATIONS REQUIRING INCREASE IN FIO2. CONTINUES ON PROPOFOL AT 50 MCG'S/KG/MIN AND KETAMINE AT 2MG/KG/HOUR FOR SEDATION. PT STILL IS ABLE TO AWAKEN EASILY. WILL CONTINUE TO MONITOR PT, AND WILL REPORT OFF TO ONCOMING RN.
--- NOTE | 2024-02-01 07:00 | NUR ---
ASSUMPTION OF CARE PT RECEIVING PROPOFOL 50MCG/KG/MIN AND KETAMINE 2MG/KG/HR. HE REMAINS INTUBATED WITH VENT SETTINGS AC/VC+ 18/440/16/60%. PT CONTINUES TO HAVE CUFF LEAK. DR BLAKELY AT BEDSIDE AND PLAN FOR TUBE EXCHANGE LATER TODAY. TUBE FEEDING PLACED ON STANDBY FOR PROCEDURE. RECTAL TUBE PATENT AND DRAINING TO GRAVITY. L RADIAL ART LINE REMAINS IN PLACE WITH MAP >65. HR 60S-70S. GLASS PATENT AND DRAINING TO GRAVITY. CORE TEMP 101.2. MEDICATED PER EMAR. BROTHER AT BEDSIDE AND UPDATED.
--- NOTE | 2024-02-01 10:44 | NUR ---
ETT EXCHANGE DR BLAKELY AND 2 RT AT BEDSIDE FOR TUBE EXHANGE. 1043: 4MG VERSED 1044: 50MG PROPOFOL 1053: 50MG PROPOFOL 1054: 50MG ROCURONIUM 1054: 7.5ETT AT 26CM AT TEETH WITH POSITIVE COLOR CHANGE 1057: 50MG PROPOFOL 1058: 50MG ROCURONIUM RT CHANGING VENT CIRCUIT AND BAGGING PT. CHEST XRAY PENDING
[2024-02-01 12:05] LABS: PCO2 Arterial 42.2 mmHg (35-45); PO2 Arterial 64.9 mmHg (80-100); pH Blood Arterial 7.34 (7.35-7.45)
[2024-02-01] MEDS ORDERED: Midazolam HCl 1MG / ML 2ML Vial IM ONE (17:39)
[2024-02-01] MEDS ORDERED: Propofol 10mg/ml 20 ml Vial (Procedural) IV ONE (17:39)
[2024-02-01] MEDS ORDERED: Rocuronium Bromide 10 MG/ML 5ML Injection IV ONE (17:39)
--- NOTE | 2024-02-01 18:06 | NUR ---
SHIFT SUMMARY PT RECEIVING PROPOFOL 50MCG/KG/MIN AND KETAMINE 2MG/KG/HR. HE REMAINS INTUBATED WITH VENT SETTINGS AC/VC+ 18/440/15/50%. COUGH/GAG INTACT. LUNGS CLEAR, DIMINISHED IN BASES. HE CONTINUES TO HAVE MODERATE/LARGE AMOUNT OF ETT SECRETIONS THAT ARE RED AND KERR. ORAL SECRETIONS HAVE RED TINGE SINCE ETT EXCHANGE. TUBE FEEDING INFUSING AT 10ML/HR WITH 200ML H2O FLUSHES Q4. BOWEL TONES HYPERACTIVE. RECTAL TUBE PATENT WITH BROWN LIQUID OUTPUT. SINUS ON MONITOR WITH RATE IN 70S. L RADIAL ART LINE IN PLACE WITH MAP >65. GLASS PATENT AND DRAINING TAMEKA URINE TO GRAVITY. BROTHER AT BEDSIDE THROUGHOUT THE DAY AND UPDATED.
--- NOTE | 2024-02-01 18:17 | NUR ---
PT'S BROTHER REQUESTS TO BE CALLED, DAY OR NIGHT, IF PT BEGINS TO DECOMPENSATE.
--- NOTE | 2024-02-01 20:00 | NUR ---
ASSUMED CARE CARE WAS ASSUMED OF PT AT 1900. PT INTUBATED AND SEDATED. PROPOFOL AND KETAMINE GTT INFUSING, SEE FLOWSHEET. RASS -4, CPOT 0. PT DOES NOT WITHDRAW FROM PAINFUL STIMULI BUT DOES OPEN EYES WITH NOXIOUS STIMULI TO STERNUM. PT IN BILATERAL SOFT WRIST RESTRAINTS FOR SAFETY. PT'S TEMP 100.8 F, MEDICATED PER EMAR AND FAN/ICE PACKS APPLIED. VENT SETTINGS AC/VC + 18/440/14/50%. O2 SATS > 90% AT SHIFT CHANGE. CARDIAC MONITORING REFLECTS NSR, HR 70s. LEFT RADIAL ARTERIAL LINE IN PLACE WITH WHITE ARM BOARD. SBP 120s-130s. TEMP GLASS PATENT AND DRAINING TO GRAVITY. RECTAL TUBE IN PLACE. TF INFUSING @ 10 mL/HR THROUGH OG. PICC TO LOUISE INFUSING.
[2024-02-02 05:28] LABS: BASOPHILS ABSOLUTE AUTO 0.16 K/mm3 (0.00-0.23); BASOPHILS PERCENT AUTO 1 % (0-2); EOSINOPHILS ABSOLUTE AUTO 0.37 K/mm3 (0.00-0.68); EOSINOPHILS PERCENT AUTO 3 % (0-6); Hematocrit 33.8 % (37.0-53.0); Hemoglobin 10.6 g/dL (13.5-17.5); IMMATURE GRAN ABSOLUTE AUTO 0.13 K/mm3 (0.00-0.10); IMMATURE GRAN PERCENT AUTO 1 % (0-1); LYMPHOCYTES ABSOLUTE AUTO 0.69 K/mm3 (0.84-5.20); LYMPHOCYTES PERCENT AUTO 6 % (21-46); MONOCYTES ABSOLUTE AUTO 0.93 K/mm3 (0.16-1.47); MONOCYTES PERCENT AUTO 7 % (4-13); Mean Corpuscular HGB 31.5 pg (26.0-34.0); Mean Corpuscular HGB Conc 31.4 g/dL (31.5-36.5); Mean Corpuscular Volume 101 fL (80-100); Mean Platelet Volume 10.1 fL (9.1-12.4); NEUTROPHILS ABSOLUTE AUTO 10.22 K/mm3 (1.96-9.15); NEUTROPHILS PERCENT AUTO 82 % (41-73); Platelet Count 614 K/mm3 (150-400); RDW Coefficient Variation 14.2 % (11.7-14.2); RDW Standard Deviation 51.8 fL (35.1-46.3); Red Blood Cell Count 3.36 M/mm3 (4.30-5.90)
--- NOTE | 2024-02-02 05:40 | NUR ---
SHIFT SUMMARY PT REMAINS INTUBATED AND SEDATED. PROPOFOL AND KETAMINE GTT INFUSING, SEE FLOWSWHEET. PT WAKING UP MORE T/O SHIFT, OPENING EYES BUT NOT MAKING EYE CONTACT. PT NOT FOLLOWING COMMANDS, OCCASIONALLY TRYING TO REACH UP TOWARDS ETT. CPOT 0, RASS -3 AT THIS TIME. PT REMAINS IN BILATERAL SOFT WRIST RESTRAINTS FOR SAFETY. PT MEDICATED TWICE PER EMAR FOR FEVER THIS SHIFT. ICE PACKS AND FANS ALSO APPLIED. VENT SETTINGS AT THIS TIME AC/VC + 18/440/14/55%. PT HAVING MODERATE AMOUNT OF THICK, RED SECRETIONS WITH ETT SUCTIONING. PT ALSO CONTINUES TO HAVE RED/CLEAR ORAL SECRETIONS. O2 SATS > 90% AT THIS TIME. CARDIAC MONITORING REFLECTS NSR, HR 70s. SBP 110s-120s AT THIS TIME. ARTERIAL LINE TO LEFT RADIAL REMAINS IN PLACE WITH WHITE ARM BOARD IN PLACE. TF CONTINUES TO INFUSE THROUGH OG TUBE. TEMP GLASS PATENT AND DRAINING TO GRAVITY. RECTAL TUBE IN PLACE, DRAINING TO GRAVITY.
[2024-02-02 05:50] LABS: Albumin, Blood 2.3 g/dL (3.4-5.0); Anion Gap 10 mmol/L (3-11); Blood Urea Nitrogen 13 mg/dL (8-24); Bun/Creatinine Ratio 24.4 (12.0-20.0); CO2, Blood 24 mmol/L (21-32); Calcium, Blood 8.7 mg/dL (8.5-10.1); Chloride, Blood 114 mmol/L (98-108); Creatinine, Blood 0.53 mg/dL (0.60-1.20); Glomerular Filtration Rate 121 (60-); Glucose, Blood 102 mg/dL (70-99); Phosphorus, Blood 3.2 mg/dL (2.5-4.9); Potassium, Blood 3.7 mmol/L (3.5-5.5); Sodium, Blood 144 mmol/L (136-145); Vancomycin, Trough 13.8 ug/mL (5.0-10.0)
--- NOTE | 2024-02-02 07:45 | NUR ---
ASSUMED CARE: REPORT RECEIVED FROM LUCIO Cervantes RN. ASSUMED CARE OF THIS PT AT APPROX 0700. ON ASSESSMENT, THE PT IS SEDATED W/ RASS -2. MINIMALLY RESPONSIVE TO NOXIOUS STIMULI, DOES NOT FOLLOW DIRECTIONS OR DEMONSTRATE PURPOSEFUL MOVEMENT. LS DIM IN BASES, PT ON VENT W/ SETTINGS: AC/VC 18/440/14/55% W/ O2 SATS > 92%. MOD-LARGE AMNTS ETT & ORAL SECRETIONS SUCTIONED, SOME BLEEDING NOTED. MONITOR SHOWS SR W/ HR 60s, ABP STABLE W/ ART LINE IN PLACE TO LEFT WRIST. OGT IN PLACE W/ TUBE FEEDS INFUSING AT GOAL RATE OF 10 ML/HR. ABD IS DISTENDED & FIRM, NO GRIMACE NOTED TO PALPATION. RECTAL TUBE DRAINING BROWN LIQUID STLS. TEMP GLASS PATENT/ DRAINING DARK YELLOW URINE. SKIN CONDITION OVERALL INTACT, Q2H REPOSITIONING TO MAINTAIN SKIN INTEGRITY. WILL CONTINUE TO MONITOR & UPDATE NEEDED.
[2024-02-02 09:15] VITALS: BP 131/84
[2024-02-02] MEDS ORDERED: Furosemide 10 MG/ML 4ML Vial IV SCH (10:00)
[2024-02-02 12:00] VITALS: BP 126/75
--- NOTE | 2024-02-02 12:33 | NUR ---
TUBE FEEDING: TUBE FEEDS ADVANCED TO NEW GOAL RATE OF 20 ML/HR PER ORDERS. PT CONTINUES HAVING LOOSE BROWN STLS, RECTAL TUBE IN PLACE.
[2024-02-02 16:00] VITALS: BP 137/90
--- NOTE | 2024-02-02 17:51 | NUR ---
SHIFT SUMMARY: NO ACUTE CHANGES SINCE PRIOR UPDATES. PLAN IS FOR TRACHEOSTOMY PLACEMENT TOMORROW EVENING, PER DR HORTA. HOLD AM DOSE OF LOVENOX. TUBE FEEDS TO BE TURNED OFF AT 0900 TOMORROW AM. LS DIM IN BASES, PT ON VENT W/ SETTINGS: AC/VC 18/440/12/50% W/ O2 SATS > 90%. MONITOR SHOWS SR W/ HR 70s, ABP READINGS STABLE. OGT IN PLACE W/ TUBE FEEDS INFUSING AT GOAL RATE, RECTAL TUBE PATENT/ DRAINING BROWN LIQUID STLS. TEMP GLASS PATENT/ DRAINING YELLOW URINE, DIURESIS PER EMAR - SEE I&O. SKIN CONDITION OVERALL INTACT, Q2H REPOSITIONING TO MAINTAIN SKIN INTEGRITY. PT HAS NOT TOLERATED REPOSITIONING TO LEFT SIDE WELL, W/ DESATS TO 85% NOTED WHEN TURNED TO THAT SIDE. WILL CONTINUE TO MONITOR & REPORT OFF TO ONCOMING RN.
[2024-02-02 20:00] VITALS: BP 143/85
--- NOTE | 2024-02-02 21:33 | NUR ---
ASSUMED CARE CARE WAS ASSUMED OF PT AT 1900. PT INTUBATED AND SEDATED. PROPOFOL AND KETAMINE GTT INFUSING, SEE FLOWSHEET. PT OPENING EYES SPONTANEOUSLY, ABLE TO ALSO OPEN EYES WHEN ASKED TO. PT ABLE TO PROTECTIVE SIGNAL REPAIRER HELPER WITH RIGHT HAND WHEN ASKED TO, UNABLE TO MOVE OTHER EXTREMITIES ON COMMANDS. RASS -3, CPOT 0. PT IN BILATERAL SOFT WRIST RESTRAINTS FOR SAFETY. VENT SETTINGS AC/VC + 18/440/12/50%. O2 SATS > 90%. PT HAVING MODERATE AMOUNT OF THICK/RED SECRETIONS WITH ETT SUCTIONING. CARDIAC MONITORING REFLECTS, HR 80s. ARTERIAL LINE TO LEFT RADIAL IN PLACE, MAP > 65. IMMOBILIZER IN PLACE. 2+ EDEMA WITH BILATERAL HANDS AND BLE. TEMP GLASS PATENT AND DRAINING TO GRAVITY. TF INFUSING THROUGH OG, RESIDULS CHECKED PER ORDER AT 1999 WITH 0 mL ABLE TO BE WITHDRAWN. RECTAL IN TUBE IN PLACE, DRAINING TO GRAVITY.
[2024-02-02 21:53] LABS: Bun/Creatinine Ratio 25.5 (12.0-20.0); Calcium, Blood 8.9 mg/dL (8.5-10.1); Creatinine, Blood 0.51 mg/dL (0.60-1.20); Magnesium, Blood 2.1 mg/dL (1.6-2.4); Potassium, Blood 3.5 mmol/L (3.5-5.5)
[2024-02-02] MEDS ORDERED: Furosemide 10 MG/ML 4ML Vial IV ONE (22:00)
[2024-02-02] MEDS ORDERED: Potassium Chloride 40 MEQ in NS 250 ML IV ONE (22:30)
[2024-02-03] VITALS (38 sets, daily range): BP systolic 118–181; BP diastolic 57–112
[2024-02-03 03:54] LABS: BASOPHILS ABSOLUTE AUTO 0.17 K/mm3 (0.00-0.23); BASOPHILS PERCENT AUTO 2 % (0-2); EOSINOPHILS ABSOLUTE AUTO 0.33 K/mm3 (0.00-0.68); EOSINOPHILS PERCENT AUTO 3 % (0-6); Hematocrit 33.5 % (37.0-53.0); Hemoglobin 10.8 g/dL (13.5-17.5); IMMATURE GRAN ABSOLUTE AUTO 0.12 K/mm3 (0.00-0.10); IMMATURE GRAN PERCENT AUTO 1 % (0-1); LYMPHOCYTES ABSOLUTE AUTO 0.64 K/mm3 (0.84-5.20); LYMPHOCYTES PERCENT AUTO 6 % (21-46); MONOCYTES ABSOLUTE AUTO 0.82 K/mm3 (0.16-1.47); MONOCYTES PERCENT AUTO 8 % (4-13); Mean Corpuscular HGB 31.9 pg (26.0-34.0); Mean Corpuscular HGB Conc 32.2 g/dL (31.5-36.5); Mean Corpuscular Volume 99 fL (80-100); NEUTROPHILS ABSOLUTE AUTO 8.43 K/mm3 (1.96-9.15); NEUTROPHILS PERCENT AUTO 80 % (41-73); Platelet Count 639 K/mm3 (150-400); RDW Coefficient Variation 14.1 % (11.7-14.2); Red Blood Cell Count 3.39 M/mm3 (4.30-5.90); White Blood Cell Count 10.51 K/mm3 (4.00-11.30)
[2024-02-03 05:53] LABS: Bun/Creatinine Ratio 25.5 (12.0-20.0); Calcium, Blood 8.8 mg/dL (8.5-10.1); Creatinine, Blood 0.55 mg/dL (0.60-1.20); Magnesium, Blood 2.1 mg/dL (1.6-2.4); Phosphorus, Blood 3.2 mg/dL (2.5-4.9); Potassium, Blood 3.7 mmol/L (3.5-5.5)
--- NOTE | 2024-02-03 06:13 | NUR ---
SHIFT SUMMARY PT REMAINS INTUBATED AND SEDATED. PROPOFOL AND KETAMINE GTT INFUSING, SEE FLOWSHEET. PT OPENS EYES SPONTANEOUSLY AND OCCASIONALLY ON COMMAND. RASS -3 CPOT 0. PT REMAINS IN BILATERAL SOFT WRIST RESTRAINTS FOR SAFETY. VENT SETTINGS AT THIS TIME AC/VC + 18/440/12/50%. O2 SATS > 90%. MODERATE-LARGE AMOUNT OF RED/THICK SECRETIONS SUCTIONED FROM ETT THIS SHIFT. CARDIAC MONITORING REFLECTS NSR, HR 70s. ARTERIAL LINE TO LEFT RADIAL REMAINS, IMMOBILIZER IN PLACE. MAP > 65. TEMP GLASS PATENT AND DRAINING TO GRAVITY. PT MEDICATED TWICE FOR TEMPERATURE > 100.4 THIS SHIFT. 3000 mL URINE OUT THIS SHIFT. RECTAL TUBE PATENT AND DRAINING TO GRAVITY. PICC TO LOUISE INFUSING. TF INFUSING THROUGH OG AT GOAL.
--- NOTE | 2024-02-03 08:00 | NUR ---
ASSUMED CARE: REPORT RECEIVED FROM LUCIO Cervantes RN. ASSUMED CARE OF THIS PT AT APPROX 0700. ON ASSESSMENT, THE PT IS SEDATED W/ PROPOFOL & KETAMINE, EYES OPEN SPONTANEOUSLY, MINIMAL TRACKING NOTED. ATTEMPTS TO SQUEEZE THIS RNs HAND WHEN PROMPTED. RASS 0/-2. LS DIM IN BASES, PT ON VENT W/ SETTINGS: AC/VC 18/440/12/70% W/ O2 SATS > 90% ON AVG, DESATS TO 86% NOTED W/ REPOSITIONING OR NEEDING ETT SUCTIONED. MONITOR SHOWS SR W/ HR 60-70s, BP STABLE W/ ORDERS TO REMOVE LEFT RADIAL ART LINE TODAY. OGT IN PLACE W/ TUBE FEEDS TO BE PLACED ON HOLD AT 0900 FOR PLANNED TRACHEOSTOMY PLACEMENT THIS EVENING. LOVENOX DOSES LAST NIGHT & THIS AM HAVE ALSO BEEN HELD. RECTAL TUBE PATENT/ DRAINING BROWN LIQUID STLS. TEMP GLASS PATENT/ DRAINING DARK YELLOW URINE W/ PLANS TO DIURESE THIS AM PER DR LUKE. SKIN OVERALL INTACT, Q2 REPOSITIONING TO MAINTAIN SKIN INTEGRITY. WILL CONTINUE TO MONITOR & UPDATE NEEDED.
[2024-02-03] MEDS ORDERED: Furosemide 10 MG / ML 2ML Vial IV ONE (08:20)
[2024-02-03] MEDS ORDERED: Potassium Chloride 20 MEQ/15 ML UDC PO ONE (08:25)
[2024-02-03] MEDS ORDERED: Zinc Sulfate 220 MG Cap (Provides 50MG) PT SCH (09:00)
[2024-02-03] MEDS ORDERED: Furosemide 10 MG/ML 4ML Vial IV SCH (09:00)
[2024-02-03 12:34] LABS: International Normalized Ratio 1.15; Prothrombin Time Results 12.2 Sec (9.7-11.5)
[2024-02-03] MEDS ORDERED: FentaNYL Citrate 50 MCG/ML 2 ML Injection IV ONE (17:20)
[2024-02-03] MEDS ORDERED: FentaNYL Citrate 50 MCG/ML 2 ML Injection ONE (17:21)
--- NOTE | 2024-02-03 18:00 | NUR ---
BLOCK NOTE - TRACHEOSTOMY: 1720 - Sukumar HORTA & MARLY AT BEDSIDE. TRAVIS RT, THIS RN & AMY Williamson, CASHIER TUBE ROOM ALSO TO BEDSIDE. TIME OUT COMPLETED. 1728 - STERILE FIELD PREPPED & PT DRAPED BY DR HORTA. 1730 - 50 MCG FENTANYL & 100 MG ROCURONIUM GIVEN PER DR LUKE ORDERS. 173 - BRONCH IN USE BY DR LUKE. 173 - VENT PRESSURE CONTROL INCREASED FROM 15 TO 20. 1737 - SURGICAL SITE PREPPED W/ LIDOCAINE BY DR HORTA. INCISION MADE. 174 - GUIDEWIRE IN, DILATOR IN. 174 - 8.0 TRACH PLACED W/O RESISTANCE REPORTED BY PROVIDER. 1743 - BP READING ELEVATED (SEE VS). PROPOFOL DRIP INCREASED TO 60 MCG/KG/MIN. 1744 - [address] HORTA. 1746 - PROPOFOL INCREASED TO 70 MCG/KG/MIN. 1747 - 50 MCG FENTANYL IVP GIVEN PER DR LUKE. 1753 - PROPOFOL DRIP 60 MCG/KG/MIN. VENT IN USE, SETTINGS: AC/PC 18/15/12/50%. 1759 - PROPOFOL DRIP 50 MCG/KG/MIN. PT REPOSITIONED & APPEARS COMFORTABLE, VSS. TRACH SITE DRESSED W/ DRAIN SPONGE & SECURED W/ TRACH TIE.
--- NOTE | 2024-02-03 18:34 | NUR ---
SHIFT SUMMARY: NO ACUTE CHANGES SINCE PRIOR UPDATE. PT APPEARS COMFORTABLE, RASS -3. GOAL TO SLOWLY TITRATE SEDATION DOWN. TRACH IN PLACE W/ MINIMAL BLEEDING NOTED FROM SURGICAL SITE. VENT SETTINGS: AC/VC 18/440/12/60% W/ O2 SATS > 90%. MONITOR SHOWS SR W/ HR 70s, BP STABLE. OGT REMOVED PRIOR TO TRACHEOSTOMY PLACEMENT. PLANS TO PLACE DOBHOFF THIS EVENING & RESUME TUBE FEEDS PER PRIOR ORDERS. RECTAL TUBE PATENT/ DRAINING BROWN LIQUID STLS. TEMP GLASS PATENT/ DRAINING YELLOW URINE W/ DIURESIS PER EMAR - SEE I&O. SKIN CONDITION OVERALL UNCHANGED, Q2H REPOSITIONING TO MAINTAIN SKIN INTEGRITY. WILL CONTINUE TO MONITOR & REPORT OFF TO ONCOMING RN.
--- NOTE | 2024-02-03 20:52 | NUR ---
ASSUMED CARE OF PT AT 1900. REPORT RECEIVED AT BEDSIDE. PT PRESENTS IN BED. NEWLY PLACED TRACHEOSTOMY TO VENT. DOBHOFF PLACED TO [address] JD BURCH'S ITS USE. PLACED TUBE FEEDING BACK. WILL REVIEW CHART AND PLAN OF CARE FOR THIS PT.
[2024-02-04] VITALS (88 sets, daily range): BP systolic 114–176; BP diastolic 69–139
[2024-02-04] MEDS ORDERED: Enoxaparin 100 MG/ML 1ML SYR SC SCH
--- NOTE | 2024-02-04 00:49 | NUR ---
DR MILES CALLS THIS LATE EVENING FOR UPDATE. DOES STATE HE WOULD LIKE THE SEDATION TO BE TITRATED DOWN ABLE. PT NOTED TO HAVE LOW GRADE FEVER OF 100.9. WILL CLOSELY MONITOR. DOPHOFF WITH TUBE FEEDING AT GOAL. WILL CONTINUE TO MONITOR.
--- NOTE | 2024-02-04 06:30 | NUR ---
HAVE BEEN ABLE TO TITRATE DOWN PROPOFOL TO 35 MCG'S/KG/MIN AND KETAMINE TO 1 MG/KG/HOUR. PT AWAKENS EASILY. RESPIRATORY THERAPY DOES AGGRESSIVE CPT TO RIGHT CHEST, AND THEN SETS BED CPT FOR 30 MINUTES. PT HAS HAD MODERATE AMOUNT OF BLOOD TINGED SECRETIONS SUCTIONED FROM TRACH. TUBE FEEDING AT GOAL. PT TOLERATES THIS WELL. WILL CONTINUE TO MONITOR PT, AND WILL REPORT OFF TO ONCOMING RN.
--- NOTE | 2024-02-04 07:00 | NUR ---
ASSUMPTION OF CARE PT RECEIVING PROPOFOL 35MCG/KG/MIN AND KETAMINE 1MG/KG/HR. HE IS ON THE VENT VIA TRACH WITH SETTINGS AC/VC 18/440/12/55%. PT COUGHING, GRIMACING AND APPEARS RESTLESS. MEDICATED PER EMAR. PT APPEARS MORE COMFORTABLE, SMILING, APPEARS TO BE SPEAKING TO VISUAL HALLUCINATIONS. DR LUKE AT BEDSIDE. KETAMINE PLACED ON STANDBY. PT MORE AWAKE, TRACKING MOVEMENTS, ANSWERING QUESTIONS BY NODDING/SHAKING HEAD AND FOLLOWING SIMPLE COMMANDS. SINUS RHYTHM ON MONITOR WITH RATE IN 70S. PT HYPERTENSIVE, NORMOTENSIVE AFTER PRN DILAUDID. PREVIOUS L RADIAL ART LINE SITE HAS TEGADERM IN PLACE. AREA SLIGHTLY RED WITH WHITE INSERTION SITE. DOBHOFF AT 70CM WITH TUBE FEEDING INFUSING. RECTAL TUBE PATENT AND DRAINING BROWN LIQUID STOOL. GLASS PATENT WITH DARK YELLOW WITH SEDIMENT URINE TO GRAVITY. CORE TEMP 101.7, MEDICATED PER EMAR WITH FAN IN PLACE.
[2024-02-04] MEDS ORDERED: Furosemide 10 MG/ML 4ML Vial IV ONE (08:25)
[2024-02-04 08:41] LABS: BASOPHILS ABSOLUTE AUTO 0.19 K/mm3 (0.00-0.23); BASOPHILS PERCENT AUTO 2 % (0-2); EOSINOPHILS ABSOLUTE AUTO 0.37 K/mm3 (0.00-0.68); EOSINOPHILS PERCENT AUTO 3 % (0-6); Hematocrit 33.8 % (37.0-53.0); Hemoglobin 10.6 g/dL (13.5-17.5); IMMATURE GRAN ABSOLUTE AUTO 0.21 K/mm3 (0.00-0.10); IMMATURE GRAN PERCENT AUTO 2 % (0-1); LYMPHOCYTES ABSOLUTE AUTO 0.75 K/mm3 (0.84-5.20); LYMPHOCYTES PERCENT AUTO 6 % (21-46); MONOCYTES ABSOLUTE AUTO 0.99 K/mm3 (0.16-1.47); MONOCYTES PERCENT AUTO 8 % (4-13); Mean Corpuscular HGB 31.5 pg (26.0-34.0); Mean Corpuscular HGB Conc 31.4 g/dL (31.5-36.5); Mean Corpuscular Volume 101 fL (80-100); Mean Platelet Volume 9.8 fL (9.1-12.4); NEUTROPHILS ABSOLUTE AUTO 10.17 K/mm3 (1.96-9.15); NEUTROPHILS PERCENT AUTO 80 % (41-73); NRBC ABSOLUTE 0.02 K/mm3 (0.00-0.02); NRBC Auto 0.2 /100 WBC (0.0-0.2); Platelet Count 570 K/mm3 (150-400); RDW Coefficient Variation 14.3 % (11.7-14.2); RDW Standard Deviation 52.1 fL (35.1-46.3); Red Blood Cell Count 3.36 M/mm3 (4.30-5.90); White Blood Cell Count 12.68 K/mm3 (4.00-11.30)
[2024-02-04] MEDS ORDERED: Lisinopril 5 MG Tab PO ONE (09:00)
[2024-02-04 09:02] LABS: Albumin, Blood 2.3 g/dL (3.4-5.0); Albumin/Globulin Ratio 0.5 (0.8-1.8); Bilirubin, Total 0.9 mg/dL (0.1-1.0); Bun/Creatinine Ratio 22.1 (12.0-20.0); Calcium, Blood 8.7 mg/dL (8.5-10.1); Creatinine, Blood 0.54 mg/dL (0.60-1.20); Globulin, Blood 4.5 g/dL (2.2-4.0); Potassium, Blood 3.4 mmol/L (3.5-5.5); Total Protein, Blood 6.8 g/dL (6.4-8.2)
--- NOTE | 2024-02-04 09:21 | NUR ---
UPDATE PT PLACED ON SPONT 07/10/50% BY DR LUKE AT 0830. PT TOLERATING WELL. RATE 13-24, TV MAINTAINING 500S-600S. RT NOTIFIED.
[2024-02-04] MEDS ORDERED: Potassium Chl 20MEQ/Water100ML 100 ML IV STA (17:24)
[2024-02-04] MEDS ORDERED: Potassium Chloride 20 MEQ/15 ML UDC PO ONE (17:30)
--- NOTE | 2024-02-04 18:50 | NUR ---
SHIFT SUMMARY PT RECEIVING PROPOFOL 15MCG/KG/MIN AND PRECEDEX 0.3MCG/KG/HR. HE REMAINS ON THE VENT VIA TRACH WITH SETTINGS SPONT 8/8/50%. RR 20S-30S, TV 500S-600S. LUNGS ARE COARSE. PT ABLE TO NOD/SHAKE HEAD TO ANSWER QUESTIONS AND FOLLOW SIMPLE COMMANDS. SINUS RHYTHM ON MONITOR WITH RATE IN 80S, BP STABLE. TUBE FEEDING INFUSING AT GOAL RATE VIA DOBHOFF. RECTAL TUBE PATENT DRAINING LIQUID BROWN STOOL TO GRAVITY. GLASS PATENT AND DRAINING TO GRAVITY. URINE WAS PREVIOUSLY DARK YELLOW AND NOW HAS BROWN/RED COLOR. PT HAS BEEN FEBRILE THROUGHOUT THE DAY, MEDICATED PER EMAR AND ICE PACKS APPLIED.
--- NOTE | 2024-02-04 19:41 | NUR ---
ASSUMED CARE OF PT AT 1900. REPORT RECEIVED AT BEDSIDE. PT VERY ANXIOUS AND ATTEMPTING TO GET OUT OF BED. REORIENTING PT AND TRYING TO VERBALLY CALM PT WAS UNSUCESSFUL. PT MAKING ATTEMPTS TO REACH UP TO HIS TRACH. OF NOTE: HEMATURIA IN GLASS LINE WHICH IS NEW. PT WAS OBSERVED TRYING TO GET AHOLD OF HIS CATHETER LINE. MEDICATED PT WITH 1 MG DILAUDID WITH GOOD RESULTS. PT CALMS AND WILL LISTEN TO INSTRUCTIONS. NODS HIS HEAD 'YES' TO IF HE HAS BEEN HAVING ANY PAIN. WILL REVIEW CHART AND PLAN OF CARE FOR THIS PT.
--- NOTE | 2024-02-04 22:37 | NUR ---
PT AWAKENS AND BECOMES VERY ANXIOUS AND AGGRESSIVELY MOVES ABOUT. BREAK RN GIVES HALDOL WITH LITTLE AFFECT. 1 MG DILAUDID GIVEN WITH IMPROVED TOLERANCE. PT DOES NOD HIS HEAD 'YES' TO PAIN. WILL CONTINUE TO MONITOR.
[2024-02-05] VITALS (90 sets, daily range): BP systolic 104–176; BP diastolic 62–112
--- NOTE | 2024-02-05 02:06 | NUR ---
FULL BEDBATH DONE FOR PT WITH LINEN CHANGE. PT TOLERATES THIS FAIR. USE OF LIFT SYSTEM FOR TURNS. PT DOES GET ANXIOUS AT TIMES. HAVE SUBSEQUENTLY PLACED PROPOFOL ON STANDBY. PT DOES HAVE FREQUENT COUGH. TRACH SUCTIONING DONE WITH RETURN OF BLOOD TINGED SECRETIONS WITH OCCASSIONAL BROWN THICKER SECRETION. WILL CONTINUE TO MONITOR.
--- NOTE | 2024-02-05 02:39 | NUR ---
PT AGAIN BECOMES VERY ANXIOUS/AGITATED AND RESTLESS. HAD PLACE PROPOFOL ON STANDBY. PT DOES NOT TOLERATE THIS AT ALL. MAKES VALIANT ATTEMPTS TO GET HIS HANDS UP TO HIS TRACH AND IS UNSUCCESSFUL. RUNNING 102.8 TEMP. TOO EARLY FOR MORE TYLENOL. TWO PERSONAL FANS IN USE TO HELP COOL PATIENT. DID PLACE ICE PACKS TO AXILLA AREA, AND UNDER NECK. WILL CONTINUE TO MONITOR. HAVE RESTARED PROPOFOL AT 15 MCG'S/KG/MIN. DOES HAVE PRECEDEX AT 0.3 MCG'S/KG/HOUR. HAVE MEDICATED PT WITH 2 MG ATIVAN PER IV PRN. THIS DOES HELP SOME WITH CALMING PT.
[2024-02-05] MEDS ORDERED: Magnesium Sul 4 GM/Water100 ML 100 ML IV ONE (05:55)
[2024-02-05 05:59] LABS: Vancomycin, Trough 14.3 ug/mL (5.0-10.0)
[2024-02-05] MEDS ORDERED: Magnesium Sulf 2 GM/Water 50ML 50 ML IV SCH (06:15)
--- NOTE | 2024-02-05 06:44 | NUR ---
PT HAS HAD A VERY ACTIVE NIGHT. HAS BEEN QUITE ANXIOUS AND ENERGETIC IN BED. HAS KICKED HIS PILLOWS OFF HIS BED OFTEN DURING THE NIGHT. HAVE MEDICATED PT WITH DILAUDID WITH THE BEST RESULTS TO CALM PT AND RESULTS IN PT BEING MUCH MORE COOPERATIVE AND TOLERATING VENT TO TRACH. HAVE SUCTIONED PT WITH RETURN OF OFF WHITE COLORED SECRETIONS OF THIS MORNING. PT HAS HAD BLOODY SECRETIONS EARLIER IN THE EVENING AND INTO ELECT EQUIP MAINT ENG. FULL BEDBATH COMPLETED. LINENS CHANGED. PT HAS HAD 650 ML LIQUID BROWN STOOL FROM FLEXISEAL. TUBE FEEDING AT GOAL. WILL CONTINUE TO MONITOR PT, AND WILL REPORT OFF TO ONCOMING RN.
[2024-02-05] MEDS ORDERED: Lisinopril 10 MG Tab PO SCH (08:00)
[2024-02-05 11:37] LABS: Source, Urine Foley catheter
[2024-02-05 11:49] LABS: BASOPHILS ABSOLUTE AUTO 0.13 K/mm3 (0.00-0.23); BASOPHILS PERCENT AUTO 1 % (0-2); EOSINOPHILS ABSOLUTE AUTO 0.29 K/mm3 (0.00-0.68); EOSINOPHILS PERCENT AUTO 2 % (0-6); Hematocrit 32.8 % (37.0-53.0); Hemoglobin 10.3 g/dL (13.5-17.5); IMMATURE GRAN ABSOLUTE AUTO 0.14 K/mm3 (0.00-0.10); IMMATURE GRAN PERCENT AUTO 1 % (0-1); LYMPHOCYTES PERCENT AUTO 4 % (21-46); MONOCYTES ABSOLUTE AUTO 0.77 K/mm3 (0.16-1.47); MONOCYTES PERCENT AUTO 5 % (4-13); Mean Corpuscular HGB 31.7 pg (26.0-34.0); Mean Corpuscular HGB Conc 31.4 g/dL (31.5-36.5); Mean Corpuscular Volume 101 fL (80-100); Mean Platelet Volume 10.1 fL (9.1-12.4); NEUTROPHILS ABSOLUTE AUTO 12.62 K/mm3 (1.96-9.15); NEUTROPHILS PERCENT AUTO 87 % (41-73); Platelet Count 529 K/mm3 (150-400); RDW Coefficient Variation 13.9 % (11.7-14.2); RDW Standard Deviation 51.1 fL (35.1-46.3); Red Blood Cell Count 3.25 M/mm3 (4.30-5.90); White Blood Cell Count 14.45 K/mm3 (4.00-11.30)
[2024-02-05 11:55] LABS: Appearance, Urine Hazy (Clear); Bilirubin, Urine Neg (Neg); Blood, Urine 5+ (Neg); Color, Urine Amber (P-Yellow); Glucose Qualitative, Urine Neg (Neg); Ketones, Urine 1+ (Neg); Leukocyte Esterase, Urine 2+ (Neg); Nitrite, Urine Neg (Neg); Protein, Urine 3+ (Neg); Specific Gravity, Urine 1.025 (1.003-1.022); Urobilinogen, Urine 1+ (Normal)
[2024-02-05 12:01] LABS: Bun/Creatinine Ratio 27.2 (12.0-20.0); Calcium, Blood 8.6 mg/dL (8.5-10.1); Creatinine, Blood 0.51 mg/dL (0.60-1.20); Phosphorus, Blood 2.8 mg/dL (2.5-4.9); Potassium, Blood 3.2 mmol/L (3.5-5.5)
[2024-02-05 12:07] LABS: Triglycerides 142 mg/dL (30-160)
[2024-02-05 12:13] LABS: Bacteria Few /hpf; Red Blood Cells, Urine TNTC /hpf (0-2); Squamous Epithelial Cells Few /hpf (Few)
[2024-02-05] MEDS ORDERED: HYDROmorphone HCl/Pf 1MG SYR IV PRN (12:25)
[2024-02-05] MEDS ORDERED: Potassium Chloride 40 MEQ in NS 250 ML IV ONE (12:40)
[2024-02-05 12:41] LABS: C DIFFICILE DNA NEGATIVE (Negative)
--- NOTE | 2024-02-05 14:50 | NUR ---
TF INCREASED TO 35ML/HR WITH 30ML Q4H WATER FLUSHES PER DIETARY ORDER.
[2024-02-05] MEDS ORDERED: Potassium Chloride 20 MEQ/15 ML UDC PO ONE (17:00)
--- NOTE | 2024-02-05 17:27 | NUR ---
SHIFT SUMMARY PATIENT REMAINS ON VENT VIA TRACH. ON AC/PC / FIO2 65%. SPO2 MID TO HIGH 90'S. TRACH CARE AND INNER CANULA CHANGED THIS SHIFT. PROPOFOL OFF SINCE THIS MORNING, PRECEDEX INF @ 0.3MCG/KG/HR WITH PRN DILAUDID AND ATIVAN PUSHES. PATIENT WAS FEBRILE THIS MORNING AND RECEIVED ONE DOSE OF TYLENOL 650MG PT AND HAS BEEN AFEBRILE SINCE. PATIENT IS ABLE TO OPEN EYES, NOD HEAD, FOLLOW COMMANDS, ASSIST WITH TURNS, AND MOUTH WORDS/QUESTIONS. MODERATE TO LARGE AMOUNTS OF ETT SECRETIONS T/O SHIFT THAT HAVEN BEEN RED/KERR IN COLOR. ACTIVE BT WITH 200ML OUT OF RECTAL TUBE. GLASS REMOVED THIS SHIFT FOR CAUTI PREVENTION AND REPLACED WITH EXTERNAL MALE CATHETER. BED BATH COMPLETED THIS SHIFT. MIDDAY LABS SHOWED LOW POTASSIUM OF 3.2, 40MEQ KCL IV X 1 GIVEN AND 20MEQ KCL PO X 1 GIVEN. CXR REPEATED TODAY, URINALYSIS, AND C-DIFF SENT FOR TESTING. NO OTHER CHANGES THIS SHIFT.
[2024-02-05] MEDS ORDERED: Peg 400/Hypromellose/Glycerin 15 DROP/ML BTL BOTHEYES PRN (18:20)
--- NOTE | 2024-02-05 19:11 | NUR ---
ASSUMED CARE OF PT AT 1900. REPORT RECEIVED AT BEDSIDE. PT PRESENTS IN BED. TRACH TO VENT WITH PRESSURE SUPPORT WITH BACKUP RATE 18. PEEP 12. PS 12. PT MAINTAINS SATURATIONS > 90 PERCENT WITH THIS. TOLERATING WELL AT THIS TIME S/P BEING MEDICATED WITH DILAUDID BY PREVIOUS RN. PT DOES MAKE EYE CONTACT AND ASSISTS SOME WITH TURNS. WILL REVIEW CHART AND PLAN OF CARE FOR THIS PT.
--- NOTE | 2024-02-05 21:04 | NUR ---
PT HAS BEEN MEDICATED WITH ATIVAN 2 MG SECONDARY TO INCREASED ANXIOUSNESS AND ATTEMPTING TO GET OUT OF BED. FIGHTING RESTRAINTS. THIS WAS AFFECTIVE. WILL CONTINUE TO MONITOR.
--- NOTE | 2024-02-05 22:37 | NUR ---
PT GOES FROM CALM IN BED TO TRYING TO PULL AT LINES AND BECOMES VERY AGITATED TRYING TO GET OUT OF BED. SEVERAL TIMES THIS EVENING PT WAS ABLE TO SEPARATE VENT FROM TRACH FROM MOVING BODY AND HEAD ABOUT IN BED. HAVE SUCTIONED KERR COLORED SECRETIONS. HAVE MEDICATED PT WITH DILAUDID AND ATIVAN FOR INCREASING ANXIOUSNESS. THIS AFFECTIVE FOR JUST OVER AN HOUR AT A TIME. DID OPT TO INCREASE PRECEDEX FROM 0.3 MCG'S/KG/HOUR TO 0.5 MCG'S/KG/HOUR PENDING RESULTS. IRONICALLY THIS RN IS CHARTING, PT WAS ABLE TO GET TRACH AND VENT AGAIN.
[2024-02-06] VITALS (87 sets, daily range): BP systolic 125–165; BP diastolic 79–119
--- NOTE | 2024-02-06 01:01 | NUR ---
PT HAS EXTERNAL URINARY WICK SYSTEM BECOMES DISLODGED SOAKING BED. PT CLEANED UP, AND NEW LINENS PLACED. MEDIUM CONDOM CATH PLACED WITH DRAINAGE SYSTEM. PT CONTINUES ON PRECEDEX AT 0.5 MCG'S/KG/HOUR. HAVE NOTED PT HAS NOT BEEN ANXIOUS OR HAVE LABILE MOODS. WILL CONTINUE TO MONITOR.
--- NOTE | 2024-02-06 01:23 | NUR ---
PT INDICATES HE WANTS TO WRITE SOMETHING DOWN. PROVIDED PEN AND PAPER ON A CLIPBOARD. ENCOURAGED PT TO PRINT TO MAKE IT EASIER TO READ HIS NEEDS. PT ONLY MAKES A SQUIGGLY LINE. WHEN REQUESTING PT TO TRY AGAIN WITH PRINT HE BECOMES VERY ANGRY AND TRIES AGGRESSIVELY TO GET OUT OF BED AND BECOMES SOMEWHAT COMBATIVE. EXPLAINED TO PT THAT THIS WOULD NOT BE ACCEPTABLE. PT ASKED IF HE WAS EXPERIENCING PAIN. HE NODS HIS HEAD 'YES'. MEDICATED PT WITH 1 MG DILAUDID. PT NOW RESTING AND NOT ATTEMPTING TO GET OUT OF BED.
--- NOTE | 2024-02-06 06:44 | NUR ---
PT HAS, AGAIN, HAD A VERY RESTLESS NIGHT. HAVE INCREASED PRECEDEX TO 0.7 MCG'S/KG/HOUR TO KEEP PT CALM. PT HAS FREQUENTLY TRIED TO GET HIS LEGS OUT OF THE BED, AND MADE ATTEMPTS TO PULL AT LINES AND GET HIS HANDS TO HIS TRACH. PT REQUIRED FREQUENT TIMES AT BEDSIDE TO KEEP HIM SAFE FROM SELF HARMING BEHAVIOUR. HAVE MEDICATED PT WITH PRN ATIVAN AND PRN DILAUDID WITH SOME RELIEF. PT HAS AT TIMES BEEN HELPFUL WITH TURNS AND OTHER TIMES WILL SHAKE HIS HEAD 'NO' TO REQUESTS TO HELP OUT. PT'S MALE WICKING URINE SYSTEM DID NOT REMAIN IN PLACE. ATTEMPT TO USE CONDOM CATHETER WENT UNSUCESSFUL. PT WOULD USE HIS FEET TO DISLODGE CATHETER. ALSO HAS WORKED TO TRY AND DISLODGE HIS RECTAL TUBE. HAVE SUCTIONED PT'S TRACH WITH RETURN OF LIGHT BLOOD TINGED SECRETIONS. HAS REMAINED ON PRESSURE CONTROL THROUGHOUT THE NIGHT. WILL CONTINUE TO MONITOR PT, AND WILL REPORT OFF TO ONCOMING RN.
[2024-02-06] MEDS ORDERED: OLANZapine 10 MG Vial IM PRN (09:45)
[2024-02-06 09:49] LABS: BASOPHILS ABSOLUTE AUTO 0.11 K/mm3 (0.00-0.23); BASOPHILS PERCENT AUTO 1 % (0-2); EOSINOPHILS ABSOLUTE AUTO 0.42 K/mm3 (0.00-0.68); EOSINOPHILS PERCENT AUTO 4 % (0-6); Hematocrit 33.4 % (37.0-53.0); Hemoglobin 10.4 g/dL (13.5-17.5); IMMATURE GRAN ABSOLUTE AUTO 0.11 K/mm3 (0.00-0.10); IMMATURE GRAN PERCENT AUTO 1 % (0-1); LYMPHOCYTES PERCENT AUTO 9 % (21-46); MONOCYTES ABSOLUTE AUTO 0.71 K/mm3 (0.16-1.47); MONOCYTES PERCENT AUTO 7 % (4-13); Mean Corpuscular HGB Conc 31.1 g/dL (31.5-36.5); Mean Corpuscular Volume 103 fL (80-100); Mean Platelet Volume 10.9 fL (9.1-12.4); NEUTROPHILS ABSOLUTE AUTO 7.97 K/mm3 (1.96-9.15); NEUTROPHILS PERCENT AUTO 78 % (41-73); Platelet Count 517 K/mm3 (150-400); RDW Coefficient Variation 13.8 % (11.7-14.2); RDW Standard Deviation 51.9 fL (35.1-46.3); Red Blood Cell Count 3.25 M/mm3 (4.30-5.90); White Blood Cell Count 10.22 K/mm3 (4.00-11.30)
[2024-02-06] MEDS ORDERED: OLANZapine 5 MG Tab PT ONE (10:00)
[2024-02-06 10:08] LABS: Bun/Creatinine Ratio 34.8 (12.0-20.0); Calcium, Blood 8.4 mg/dL (8.5-10.1); Creatinine, Blood 0.52 mg/dL (0.60-1.20); Potassium, Blood 3.7 mmol/L (3.5-5.5)
--- NOTE | 2024-02-06 19:09 | NUR ---
SHIFT SUMMARY PT MENTATION HAS IMPROVED GREATLY THROUGHOUT THE SHIFT. NOW FOLLOWING ALL COMMANDS, MOUTHING WORDS, CALM AND COOPERATIVE. SR, BP WNL. VENT SETTINGS CHANGED, DECREASED PEEP TO 10, FIO2 DOWN TO 60%. CONTINUES TO HAVE THICK PINK/CLEAR SECRETIONS. STRONG COUGH. TRACH SITE UNCHANGED. DOBHOFF TO LEFT NARE, TF INFUSING AT GOAL, BAG AND TUBING CHANGED THIS SHIFT. VOIDS USING THE URINAL WITH ASSISTANCE, URINE IS DARK TAMEKA. SKIN UNCHANGED, NO BREAKDOWN DUE TO PRESSURE NOTED. PICC TO RIGHT UPPER ARM, NS TKO X2, PRECEDEX INFUSING, RATE DECREASED TO 0.3. NO FAMILY AT BEDSIDE, UPDATE GIVEN TO DPOA AND BROTHER VIA PHONE. POC ONGOING.
[2024-02-06] MEDS ORDERED: OLANZapine 10 MG Tab PT SCH (22:00)
[2024-02-07] VITALS (63 sets, daily range): BP systolic 110–168; BP diastolic 69–111
[2024-02-07 05:25] LABS: Hematocrit 32.7 % (37.0-53.0); Hemoglobin 10.5 g/dL (13.5-17.5); Mean Corpuscular HGB 31.6 pg (26.0-34.0); Mean Corpuscular HGB Conc 32.1 g/dL (31.5-36.5); Mean Corpuscular Volume 99 fL (80-100); Platelet Count 496 K/mm3 (150-400); RDW Coefficient Variation 13.8 % (11.7-14.2); RDW Standard Deviation 49.3 fL (35.1-46.3); Red Blood Cell Count 3.32 M/mm3 (4.30-5.90); White Blood Cell Count 7.79 K/mm3 (4.00-11.30)
--- NOTE | 2024-02-07 05:35 | NUR ---
SHIFT SUMMERY PT REMAINS VENTED VIA ETT TUBE. HE HAS HAD NO ACUTE CHANGES OVERNIGHT. INTERMITTENT PERIODS OF RESTLESSNESS W/MILD AGITATION. VS HAVE REMAINED STABLE. HE CONTINUES TO HAVE MODERATE AMOUNT OF SECRETIONS. AFEBRILE. TOLERATING TF W/OUT DIFFICULTY. PT HAS BEEN AWAKE AND ALERT, ATTEMPTING TO COMMUNICATE NEEDS-ORIENTED TO SELF.
[2024-02-07 05:50] LABS: Bun/Creatinine Ratio 33.3 (12.0-20.0); Calcium, Blood 8.7 mg/dL (8.5-10.1); Creatinine, Blood 0.51 mg/dL (0.60-1.20); Phosphorus, Blood 3.3 mg/dL (2.5-4.9); Potassium, Blood 3.3 mmol/L (3.5-5.5)
[2024-02-07] MEDS ORDERED: PredniSONE 5 MG Tab PT SCH (09:00)
[2024-02-07] MEDS ORDERED: OxyCODONE HCL 5 MG TAB PO PRN (12:50)
[2024-02-07] MEDS ORDERED: HYDROmorphone HCl/Pf 1MG SYR IV PRN (12:50)
[2024-02-07] MEDS ORDERED: Ipratropium/Albuterol SulF 2.5-0.5MG/3 ML Amp INH SCH (12:50)
--- NOTE | 2024-02-07 13:16 | NUR ---
REASSESSMENT PT HAS BEEN ALERT, ORIENTED TO SELF AND FOLLOWING DIRECTIONS. PRECEDEX HAS SLOWLY BEEN TITRATED DOWN THIS MORNING. CURRENTLY AT 0.3MCG/KG/HR. LUNGS HAVE A LITTLE COARSENESS, MODERATE AMT OF THCK KERR SPUTUM THIS MORNING. DR. CARLOS SWITCHED PT TO SPONTANEOUS WITH PRESSURE SUPPORT AND PT HAS BEEN TOLERATING FOR ABOUT 2 HOURS NOW. PT IS PARTICIPATING IN CARES, MAKING SMALL POSITION READJUSTMENTS, BRUSHED HIS OWN TEETH AT NOON. PT GOT UP TO CHAIR WITH LIFT. SR, TUBE FEED INFUSING. FREE WATER INCREASED TO 100ML/HR PER DR. CARLOS. MEDICATED ONCE FOR PAIN.
--- NOTE | 2024-02-07 17:19 | NUR ---
SHIFT SUMMARY PT HAS REMAINED ON 0.3MCG/KG/HR THROUGHOUT THE AFTERNOON. HE HAS HAD A COUPLE EPISODES OF ANXIETY THAT HE WAS ABLE TO BE TALKED THROUGH TO CALM HIMSELF DOWN. HER REMAINED ON SPONTANEOUS MODE ON THE VENTILATOR UNTIL ABOUT 1630 WHEN PT COMMUNICATED THAT IT WAS GETTING HARDER TO BREATHE SO RT SWITCHED HIM BACK. HE STAYED UP IN THE CHAIR UNTIL 1700, WHEN HE HAD TO HAVE A BOWEL MOVEMENT SO HE WAS LIFTED BACK TO BED TO USE THE BEDPAN. WHILE IN THE CHAIR, PT WAS USING HIS ARMS TO LIFT HIMSELF AND REPOSITION HIS BOTTOM. HE HAS BEEN CONTINENT OF URINE AND STOOL. PT'S BROTHER VISITED THIS AFTERNOON AND WAS UPDATED BY NURSING STAFF.
[2024-02-08] VITALS (20 sets, daily range): BP systolic 122–176; BP diastolic 72–120
[2024-02-08 05:50] LABS: Hematocrit 32.5 % (37.0-53.0); Hemoglobin 10.4 g/dL (13.5-17.5); Mean Corpuscular HGB 31.6 pg (26.0-34.0); Mean Corpuscular Volume 99 fL (80-100); Mean Platelet Volume 10.1 fL (9.1-12.4); Platelet Count 496 K/mm3 (150-400); RDW Coefficient Variation 13.8 % (11.7-14.2); RDW Standard Deviation 50.2 fL (35.1-46.3); Red Blood Cell Count 3.29 M/mm3 (4.30-5.90); White Blood Cell Count 6.86 K/mm3 (4.00-11.30)
--- NOTE | 2024-02-08 06:03 | NUR ---
SHIFT SUMMERY PT HAS BEEN ALERT AND AWAKE MOST OF THE NIGHT. SB-SR ON THE PRESSURE TEST OPERATOR. BP WNL, AFEBRILE. OXYGEN NEEDS DID INCREASE OVERNIGHT DUE TO DESATURATION. PT HAS BEEN VOIDING IN THE URINAL, ABLE TO MAKE NEEDS KNOWN MY MOUTHING WORDS-DIFFICULT TO UNDERSTAND AT TIMES DUE TO TRACH. PT REMAINS VENTED W/TRACH INTACT AND PATENT TO VENT. TF INFUSING AT GOAL W/PT TOLERATING W/OUT DIFFICULTY AT THIS TIME.
[2024-02-08 06:25] LABS: Anion Gap 9 mmol/L (3-11); Blood Urea Nitrogen 14 mg/dL (8-24); Bun/Creatinine Ratio 26.1 (12.0-20.0); CO2, Blood 27 mmol/L (21-32); Calcium, Blood 8.6 mg/dL (8.5-10.1); Chloride, Blood 110 mmol/L (98-108); Creatinine, Blood 0.54 mg/dL (0.60-1.20); Glomerular Filtration Rate 120 (60-); Glucose, Blood 96 mg/dL (70-99); Potassium, Blood 3.5 mmol/L (3.5-5.5); Sodium, Blood 142 mmol/L (136-145); Vancomycin, Trough 19.2 ug/mL (5.0-10.0)
[2024-02-08] MEDS ORDERED: Nicotine 7 MG PATCH TOP SCH (12:35)
--- NOTE | 2024-02-08 12:40 | NUR ---
REASSESSMENT PT WAS SLEEPIER THIS MORNING AND DESATURATING WHEN ASLEEP. SPO2 CAME BACK UP WHEN PT WOKEN UP AND TOLD TO COUGH. PRECEDEX TITRATED TO OFF THROUGHOUT THE MORNING AND PT'S OXYGEN NEEDS IMPROVED. LUNGS STILL COARSE. PT GOT UP TO THE CHAIR WITH LIFT. WHILE IN THE CHAIR, PT ABLE TO SIT UP WITHOUT THE SUPPORT OF THE BACK OF THE CHAIR. PT WAS THEN ABLE TO STAND WITH MINIMAL ASSISTANCE AND THE WALKER. PT SAT DOWN AND STOOD UP TWICE, THEN STOOD FOR ABOUT 2 MINTUES, BEFORE WANTING TO SIT BACK DOWN. PT BACK SITTING IN CHAIR WITH FEET ON THE GROUND. PT WAS ASKING FOR HIS NICOTINE CHEW. EXPLAINED TO HIM WHY HE CAN'T HAVE THEM AND OFFERED NICOTINE PATCH INSTEAD. PT ACCEPTED, BUT REQUESTED JUST A LOW DOSE. PT'S BROTHER AT THE BEDSIDE AND WAS UPDATED BY DR. CARLOS DR. CARLOS UPDATED THE PT.
[2024-02-08] MEDS ORDERED: Metolazone 5 MG Tab PT ONE (13:00)
[2024-02-08] MEDS ORDERED: Potassium Chloride 20 MEQ/15 ML UDC PT ONE (13:00)
[2024-02-08] MEDS ORDERED: Furosemide 10 MG / ML 2ML Vial IV SCH (13:00)
--- NOTE | 2024-02-08 16:58 | NUR ---
SHIFT SUMMARY PT HAS REMAINED OFF OF THE PRECEDEX THIS AFTERNOON. HE HAS GOTTEN ANXIOUS WHEN HE NEEDED TO VOID, BUT ANXIETY WAS RELIEVED AFTER HE WAS ABLE TO GO. PT HAS BEEN ABLE TO WRITE A LITTLE RODRIGUEZ EGIBLY TODAY TO HELP WITH COMMUNICATION, AND PT ALSO GIVEN COMMUNICATION BOARD TO TRY AND ASSIST. PT LUNGS ARE STILL COARSE, LESS SECRETIONS SUCTIONED THIS AFTERNOON. SR, BP HYPERTENSIVE IN THE 150S. GOOD OUTPUT FOLLOWING LASIX ADMINISTRATION. TOLERATING TUBE FEED. PT GOT BACK TO BED THIS AFTERNOON BECAUSE HE WAS GETTING TIRED. PT SWITCHED BACK TO AC ON THE VENT AT THAT TIME AND HE HAS BEEN RESTING IN BED SINCE. PT'S BROTHER LEFT AT THAT TIME TO LET HIM REST.
[2024-02-09] VITALS (20 sets, daily range): BP systolic 89–158; BP diastolic 58–119
[2024-02-09] MEDS ORDERED: Haloperidol Lactate Inj. 5 MG/ML Injection IM ONE (02:00)
--- NOTE | 2024-02-09 02:03 | NUR ---
PT HAS BECOME INCREASINGLY ANXIOUS WHICH DEVELOPED INTO AGITATION/COMBATIVENESS SINCE I ASSUMED CARE AT CHANGE OF SHIFT. PT WAS TAKEN OFF OF PRECEDEX ON DAY SHIFT BUT I RESTARTED PT WAS TRYING TO PUNCH AND KICK STAFF, GET OUT OF BED AND PULL HIS TRACH AND IV LINES. ALL OTHER PRN MEDICATIONS WERE GIVEN WELL. PT WAS UNABLE TO BE REDIRECTED AND REQUIRED RESTRAINTS AND 5 STAFF MEMBERS TO HOLD FOR RESTRAINTS TO BE PLACED. I HAVE SPENT MUCH OF MY SHIFT IN PT ROOM, UNSUCCESSFULLY TRYING TO REORIENT AND REDIRECT HIM. DR TALBERT WAS NOTIFIED AND ORDERS WERE GIVEN. [facility].
[2024-02-09 05:27] LABS: Hemoglobin 11.2 g/dL (13.5-17.5); NRBC ABSOLUTE 0.02 K/mm3 (0.00-0.02); NRBC Auto 0.2 /100 WBC (0.0-0.2)
[2024-02-09 05:32] LABS: Hematocrit 34.3 % (37.0-53.0); Mean Corpuscular HGB 31.5 pg (26.0-34.0); Mean Corpuscular HGB Conc 32.7 g/dL (31.5-36.5); Mean Corpuscular Volume 96 fL (80-100); Mean Platelet Volume 10.1 fL (9.1-12.4); Platelet Count 456 K/mm3 (150-400); RDW Coefficient Variation 13.7 % (11.7-14.2); RDW Standard Deviation 48.3 fL (35.1-46.3); Red Blood Cell Count 3.56 M/mm3 (4.30-5.90)
[2024-02-09 05:46] LABS: Magnesium, Blood 2.2 mg/dL (1.6-2.4)
[2024-02-09 06:01] LABS: Anion Gap 8 mmol/L (3-11); Blood Urea Nitrogen 15 mg/dL (8-24); Bun/Creatinine Ratio 23.8 (12.0-20.0); CO2, Blood 30 mmol/L (21-32); Calcium, Blood 9.2 mg/dL (8.5-10.1); Chloride, Blood 102 mmol/L (98-108); Creatinine, Blood 0.63 mg/dL (0.60-1.20); Glomerular Filtration Rate 114 (60-); Glucose, Blood 106 mg/dL (70-99); Potassium, Blood 3.4 mmol/L (3.5-5.5); Sodium, Blood 137 mmol/L (136-145)
[2024-02-09 06:03] LABS: Vancomycin, Trough 20.8 ug/mL (5.0-10.0)
--- NOTE | 2024-02-09 06:12 | NUR ---
SHIFT WAGNER PT HAS RESTARTED FOLLOWING DIRECTIONS, RESTRAINTS WERE REMOVED. HE DID REQUIRE THE RESTARTING OF PRECEDEX FOR A FEW HOURS AND PRN MEDICATIONS-SEE EMAR. HE HAS HAD MANY INCONTINENT AND CONTINENT VOIDS AFTER GETTING LASIX. HR AND BP HAVE BEEN STABLE.
[2024-02-09] MEDS ORDERED: Vancomycin HCL 1,750 MG in NS 500 ML IV SCH (08:00)
[2024-02-09] MEDS ORDERED: Temazepam 15 MG Cap PT PRN (10:35)
[2024-02-09] MEDS ORDERED: HYDROmorphone HCl/Pf 1MG SYR IV PRN (10:35)
[2024-02-09] MEDS ORDERED: Furosemide 10 MG / ML 2ML Vial IV SCH (11:00)
--- NOTE | 2024-02-09 14:40 | NUR ---
AFTER DILAUDID PATIENT DESATTED TO 86%, FIO2 TITRATED UP TO 90% AND SPO2 NOW AT 91-93% VIA TRACH COLLAR.
[2024-02-09] MEDS ORDERED: FentaNYL Citrate 50 MCG/ML 2 ML Injection IV PRN (14:50)
--- NOTE | 2024-02-09 17:33 | NUR ---
SHIFT SUMMARY PATIENT TRANSITIONED FROM VENT TO TRACH COLLAR TODAY-TOLERATED WELL. SPEAKING VALVE TRIALED AND PASSED. ST ORDERED FOR EVAL TOMORROW. WORKED WITH OT AND TOLERATED WALKING AROUND THE UNIT WITH WALKER AND GAIT BELT. PATIENT IS A ONE PERSON ASSIST WITH WALKER TO CHAIR AND BEDSIDE COMMODE. PATIENT HAS PERIODS OF DELERIUM, BUT IS EASILY REDIRECTABLE. MEDICATED FOR PAIN T/O SHIFT PER EMAR. DILAUDID SWITCHED TO FENTANYL DUE TO RESPIRATORY DEPRESSION. PATIENT HAD GOOD URINE OUTPUT TODAY AND ONE BM. TF INCREASED TO GOAL RATE OF 65ML/HR WITH 30ML Q4H WATER FLUSHES. NO OTHER CHANGES THIS SHIFT.
--- NOTE | 2024-02-09 18:40 | NUR ---
FALL IN ROOM PATIENT STOOD UP OUT OF [place]AIRAND BEFORE THIS NURSE COULD ARRIVE TO CHAIR SIDE PATIENT BEGAN A DESCENT SLIDING DOWN THE WALL AND LANDED ON THE FLOOR ON HIS BUTT. WHEN I ARRIVED TO PATIENT'S SIDE TO ASK WHY HE STOOD UP WITHOUT NURSE ASSISTANCE, HE STATES HE "WANTED TO TAKE HIS PILLS AND GO TO BED" WHILE HOLDING THE CONTAINER FOR HIS SPEAKING VALVE. PATIENT EDUCATED ON USE OF CALL LIGHT BEFORE AMBULATION. PATIENT DENIED PAIN AND NO INJURIES NOTED ON ASSESSMENT. PATIENT ASSISTED BACK TO CHAIR AND TAB ALARM PLACED UNDERNEATH PATIENT. CALL LIGHT REMAINS IN REACH.
--- NOTE | 2024-02-09 23:30 | NUR ---
ASSUMPTION OF CARE: RECEIVED REPORT FROM THUY Ortega RN. PT ALERT AND ORIENTED TO PERSON. VERY CONFUSED AND NOT REDIRECTABLE. PT FREQUENTLY PULLING AT LINES AND VENT TUBE AND ATTMEPTING TO THROW HIMSELF OVER THE RAIL. PRECEDEX RESTARTED AT 2200 AT 0.7 MCG/KG/HR. PT ON VENT WITH TRACH, SPONTANEOUS, PEEP 8.0 AND FIO2 45%. SPO2 >88%. LUNGS CLEAR/DIM. PT ON WIRE INSULATOR, SR WITH HR 80'S-90'S. SBP 90'S-140'S. MALE PUREWICK IN PLACE, DRAINING YELLOW URINE TO SUCTION. PICC TO LOUISE PATENT AND INFUSING. PT AFEBRILE. PT HAD LARGE LOOSE BM INCONT. BED LOW AND LOCKED, CALL LIGHT IN REACH. NATIONAL VAN OWNER OPERATOR AT DOOR. DOBHOFF IN PLACE.
[2024-02-10] VITALS (26 sets, daily range): BP systolic 89–170; BP diastolic 63–102
[2024-02-10 04:49] LABS: BASOPHILS ABSOLUTE AUTO 0.12 K/mm3 (0.00-0.23); BASOPHILS PERCENT AUTO 1 % (0-2); EOSINOPHILS ABSOLUTE AUTO 0.18 K/mm3 (0.00-0.68); EOSINOPHILS PERCENT AUTO 2 % (0-6); Hematocrit 36.6 % (37.0-53.0); Hemoglobin 12.2 g/dL (13.5-17.5); IMMATURE GRAN ABSOLUTE AUTO 0.06 K/mm3 (0.00-0.10); IMMATURE GRAN PERCENT AUTO 1 % (0-1); LYMPHOCYTES ABSOLUTE AUTO 0.87 K/mm3 (0.84-5.20); LYMPHOCYTES PERCENT AUTO 9 % (21-46); MONOCYTES PERCENT AUTO 15 % (4-13); Mean Corpuscular HGB 31.4 pg (26.0-34.0); Mean Corpuscular HGB Conc 33.3 g/dL (31.5-36.5); Mean Corpuscular Volume 94 fL (80-100); NEUTROPHILS PERCENT AUTO 72 % (41-73); Platelet Count 481 K/mm3 (150-400); RDW Coefficient Variation 13.5 % (11.7-14.2); RDW Standard Deviation 46.4 fL (35.1-46.3); Red Blood Cell Count 3.88 M/mm3 (4.30-5.90); White Blood Cell Count 9.53 K/mm3 (4.00-11.30)
[2024-02-10 05:06] LABS: Bun/Creatinine Ratio 24.2 (12.0-20.0); Calcium, Blood 9.1 mg/dL (8.5-10.1); Creatinine, Blood 0.74 mg/dL (0.60-1.20); Phosphorus, Blood 4.2 mg/dL (2.5-4.9); Potassium, Blood 3.5 mmol/L (3.5-5.5)
--- NOTE | 2024-02-10 06:05 | NUR ---
SHIFT SUMMARY: PT ALERT AND ORIENTED TO SELF. STILL MAKING FREQUENT ATTEMPTS TO THROW HIMSELF OVER THE SIDE RAIL. PULLING AT LINES, WIRES AND TRACH. NOT EASILY REDIRECTABLE. PT REMAINS ON VENT OVERNIGHT WITH TRACH, SPONTANEOUS, PEEP 8.0, FIO2 50%. SPO2 88-94%. LUNGS CLEAR/ DIM, FREQUENT SUCTIONING REQUIRED FOR SECRETIONS. PRECEDEX AT 0.8 MCG/KG/HR THROUGH PICC LINE TO LOUISE. STRAIGHT SLICING MACHINE OPERATOR IN PLACE, SR WITH HR 70'S. SBP 100'S. VOIDING YELLOW URINE T/O THE NIGHT. ONE BM THIS SHIFT. BED LOW AND LOCKED, CALL LIGHT IN REACH. PRECISE WINDER AT THE DOOR.
[2024-02-10 08:29] LABS: Vancomycin, Trough 16.3 ug/mL (5.0-10.0)
--- NOTE | 2024-02-10 10:59 | NUR ---
SHIFT ASSESSMENT ASSUMED CARE OF PT @ 0700, BEDSIDE REPORT RECEIVED FROM NOC NURSE. INITIALLY PT SEDATED ON PRECEDEX, DIFFICULT TO AROUSE. PRECEDEX TURNED OFF. VENTILATED VIA TRACH, TRANSITIONED TO TRACH COLLAR. NOW TRACH PLUGGED AND PT ON 9LPM VIA [place] NC c SATS >90%. PT NOW ALERT TO PERSON AND PLACE, FOLLOWING SIMPLE COMMANDS. AMBULATES TO BEDSIDE CHAIR WITH 2 PERSON ASSIST. PT REQUESTING WATER, AWAITING ST EVAL. UNFORTUNATELY PT PULLED HIS DOBHOFF c SITTER AT DOOR. HOLDING OFF ON PLACING NEW ONE UNTIL ST EVALUATES. NO BM THIS AM. ATTENDS IN PLACE, NO UO YET.
--- NOTE | 2024-02-10 18:07 | NUR ---
SHIFT SUMMARY PT A&O TO PERSON, PLACE, AND EVENT. MUCH MORE COHERENT THE DAY PROGRESSED. FOLLOWING COMMANDS, AMBULATES TO CHAIR WITH 2 PERSON ASSIST TO MANAGE IMPULSIVITY. WORKED WITH PT/OT TODAY, PT ABLE TO COMPLETE MOST OF HIS OWN BEDBATH. OFF OF VENT FOR MOST OF DAY, ON TRACH COLLAR & O2 VIA NC, SEE RT CHARTING. CURRENTLY BACK ON VENT 07/04 60% c SATS >90%. SWALLOW EVAL COMPLETE SO DOBHOFF NOT ESTABLISHED. PT CONTINENT OF URINE AND STOOL, ONE MEDIUM LOOSE BM TODAY. PT NOW RESTING COMFORTABLY.
--- NOTE | 2024-02-10 21:26 | NUR ---
ASSUMED CARE AT 1900 PATIENT IS ALERT AND ORIENTED TO SELF, PLACE AND FOLLOWING COMMANDS. SP02 95% ON VENT, SPONT 12/8 FI02 60%, RR 16, LARGE AMOUNT OF THICK KERR SPUTUM. TRACH COLLAR ON WHILE GIVING MEDS CRUSHED IN APPLESAUCE, PATIENT TOLERATED WELL. HR SR 90s, BP STABLE. DENIES CP/PRESSURE. ASKS FOR URINAL WHEN NEEDEDS. CALL LIGHT IN REACH AND SITTER AT BEDSIDE DUE TO SOME CONFUSION.
[2024-02-11] VITALS (28 sets, daily range): BP systolic 94–163; BP diastolic 61–99
[2024-02-11 03:40] LABS: BASOPHILS ABSOLUTE AUTO 0.07 K/mm3 (0.00-0.23); BASOPHILS PERCENT AUTO 1 % (0-2); EOSINOPHILS ABSOLUTE AUTO 0.33 K/mm3 (0.00-0.68); EOSINOPHILS PERCENT AUTO 4 % (0-6); Hematocrit 35.5 % (37.0-53.0); Hemoglobin 11.6 g/dL (13.5-17.5); IMMATURE GRAN ABSOLUTE AUTO 0.03 K/mm3 (0.00-0.10); IMMATURE GRAN PERCENT AUTO 0 % (0-1); LYMPHOCYTES ABSOLUTE AUTO 0.68 K/mm3 (0.84-5.20); LYMPHOCYTES PERCENT AUTO 9 % (21-46); MONOCYTES ABSOLUTE AUTO 1.04 K/mm3 (0.16-1.47); MONOCYTES PERCENT AUTO 14 % (4-13); Mean Corpuscular HGB 31.4 pg (26.0-34.0); Mean Corpuscular HGB Conc 32.7 g/dL (31.5-36.5); Mean Corpuscular Volume 96 fL (80-100); Mean Platelet Volume 10.1 fL (9.1-12.4); NEUTROPHILS ABSOLUTE AUTO 5.55 K/mm3 (1.96-9.15); NEUTROPHILS PERCENT AUTO 72 % (41-73); Platelet Count 468 K/mm3 (150-400); RDW Coefficient Variation 13.4 % (11.7-14.2); RDW Standard Deviation 47.7 fL (35.1-46.3); Red Blood Cell Count 3.69 M/mm3 (4.30-5.90)
[2024-02-11 04:01] LABS: Bun/Creatinine Ratio 23.1 (12.0-20.0); Calcium, Blood 8.8 mg/dL (8.5-10.1); Creatinine, Blood 0.69 mg/dL (0.60-1.20); Magnesium, Blood 2.1 mg/dL (1.6-2.4); Phosphorus, Blood 3.2 mg/dL (2.5-4.9); Potassium, Blood 3.1 mmol/L (3.5-5.5)
[2024-02-11] MEDS ORDERED: Potassium Chloride 40 MEQ in NS 250 ML IV ONE (04:10)
--- NOTE | 2024-02-11 06:14 | NUR ---
SHIFT SUMMARY PATIENT ALERT AND ORIENTED X SELF, PLACE, AND FOLLOWING COMMANDS. NEEDS REDIRECTIONS AND REORIENTATION AT TIMES. BECAME SLIGHTLY AGITATED MULTIPLE TIMES THROUGH THE NIGHT, MEDICATED PER EMAR PRN. PATIENT ON VENT SPONT MOST THE NIGHT, SWITCHED TO TRACH COLLAR 40% THIS AM. SECRETIONS TURNING RED, SMALL TO LARGE AMOUNT. SP02 94%. HR SR 80s-90s, BP STABLE. TOLERATING PO MEDIS CRUSHED IN APPLESAUCE. USES URINAL. REPOSITIONS SELF. ABLE TO DO OWN ORAL CARE WITH MINIMAL ASSISTANCE. CALL LIGHT IN REACH AND SITTER AT BEDSIDE
--- NOTE | 2024-02-11 08:45 | NUR ---
INITIAL ASSESSMENT PATIENT ALERT AND ORIENTED TO SELF, ICU, YEAR, FOLLOWING COMMANDS BUT VERY FORGETFUL AND NEEDS FREQUENT REORIENTING. PATIENT DISORIENTED TO MONTH, TOWN. PATIENT HAS RAPID/ PRESSURED SPEECH. PATIENT THAS DISORGANIZED THINKING. PATIENT ANXIOUS AND IRRITATED AT TIMES. PATIENT EXPRESSES THAT HE "JUST WANTS GO HOME". PATIENT AFEBRILE. PATIENT STATES HE HAS PAIN "ALL OVER". PATIENT LUNGS CLEAR. PATIENT HAS 8.0 TRACH. PATIENT SATTING 90% AND GREATER ON EITHER TRACH COLLAR AT 60% OR ON 12 L HF NC TO NOSE WITH TRACH PLUG IN PLACE. PATIENT COUGHING UP MODERATE AMOUNT OF THICK, BLOODY SPUTUM AT TIMES. PATIENT IN SR, HR IN THE 80S. SBP IN THE 150S. MEDS CRUSHED IN APPLESAUCE ONLY PO. PATIENT USING URINAL OR BSC WITH ASSITANCE. SKIN APPEARS WNL. NS TKO. BED LOW, CALL LIGHT IN REACH. CARE CONTINUES.
[2024-02-11] MEDS ORDERED: Enoxaparin 100 MG/ML 1ML SYR SC SCH (10:23)
--- NOTE | 2024-02-11 12:00 | NUR ---
PATIENT AFEBRILE. HR IN THE 80S. SBP IN THE 140S. NO ACUTE CHANGES NOTED.
--- NOTE | 2024-02-11 16:00 | NUR ---
PATIENT AFEBRILE. HR IN THE 80S. SBP IN THE 140S. NO ACUTE CHANGES TO NOTE ON AT THIS TIME. CARE CONTINUES.
--- NOTE | 2024-02-11 18:27 | NUR ---
SHIFT SUMMARY PATIENT REMAINED ALERT AND ORIENTED TO SOME QUESTIONS THIS SHIFT. PATIENT REMAINS HARD TO REDIRECT. PATIENT RESTLESS, AGITATED AND IRRITATED AT TIMES. PATIENT REALLY WANTING TO GET OUT OF HERE. PATIENT REMAINS WITH DISORGANIZED THINKING AND RAPID SPEECH. PATIENT GIVEN PRN OXY TWICE THIS SHIFT FOR COMPLAINTS OF PAIN "ALL OVER". PATIENT ON SCHEDULED ZYPREXA BUT ALSO GIVEN PRN IM ZYPREXA FOR INCREASED ANXIETY/ AGITATION. PATIENT HAS REMAINED SATTING 90% AND GREATER WITH TRACH PLUG AND ON 6 TO 12 L HF NC. PATIENT IN SR, HR RANGING FROM 70S TO 90S. SBP 120S TO 160S. PATIENT HAD MEDIUM, LOOSE BM THIS SHIFT. PATIENT HAD SWALLOW STUDY AND PLACED ON PUREE DIET AND MILDLY THICKENED LIQUIDS VIA SPOON. PATIENT ATE 100% OF DINNER AND SEEMED TO TOLERATE WELL. PATIENT HAD ADEQUATE URINE OUTPUT. NO CHANGES TO SKIN NOTED. PATIENT REFUSED BED BATH. PICC LINE SALINE LOCKED. PATIENT RECEIVED 40 KCL REPLACEMENT THIS AM. PT AND OT WORKED WITH PATIENT THIS SHIFT. PATIENT HAD 1:1 SITTER THIS SHIFT BECAUSE OF IMPULSIVENESS/ GETTING OUT OF BED/ PULLING AT LINES, CORDS, GOWN. BED LOW, CALL LIGHT IN REACH. NO COMPLAINTS AT THIS TIME. REPORT WILL BE GIVEN TO ASSUMING ZINC PLATER NURSE SHORTLY.
--- NOTE | 2024-02-11 21:46 | NUR ---
ASSUMED CARE AT 1900 PATIENT IS ALERT AND ORIENTED X4, NONSENSICLE AND CONFUSED AT TIMES. BECOMES VERY AGITATED AND DIFFEICULT TO REDIRECT. CALLED DR. KENNY ABOUT PATIENT BEHAVIOR, ORDERS TO RESTART PRECEDEX. PATIENT CONTINUED TO PULL AT LINES AND ATTEMPTED TO CLIMB OUT OF BED AND NEEDED RESTRAINED. EVENTUALLY PATIENT CALMED DOWN ENOUGH TO TAKE PO MEDICATIONS. SP02 94% ON 7L VIA NC, TRACH PLUGGED. MODERATE AMOUNT OF THICK KERR RED/SPUTUM, PATIENT HAS STRONG COUGH. HR SR 80s, BP STABLE. USES URINAL. SITTER AT BEDSIDE. SEE SHIFT ASSESMENT FOR MORE INFORMATION
[2024-02-12] VITALS (51 sets, daily range): BP systolic 85–172; BP diastolic 61–125
[2024-02-12 04:05] LABS: BASOPHILS PERCENT AUTO 2 % (0-2); EOSINOPHILS ABSOLUTE AUTO 0.76 K/mm3 (0.00-0.68); EOSINOPHILS PERCENT AUTO 11 % (0-6); Hematocrit 36.8 % (37.0-53.0); Hemoglobin 11.6 g/dL (13.5-17.5); IMMATURE GRAN ABSOLUTE AUTO 0.03 K/mm3 (0.00-0.10); IMMATURE GRAN PERCENT AUTO 0 % (0-1); LYMPHOCYTES ABSOLUTE AUTO 0.71 K/mm3 (0.84-5.20); LYMPHOCYTES PERCENT AUTO 11 % (21-46); MONOCYTES ABSOLUTE AUTO 0.98 K/mm3 (0.16-1.47); MONOCYTES PERCENT AUTO 15 % (4-13); Mean Corpuscular HGB Conc 31.5 g/dL (31.5-36.5); Mean Corpuscular Volume 98 fL (80-100); Mean Platelet Volume 10.1 fL (9.1-12.4); NEUTROPHILS ABSOLUTE AUTO 4.11 K/mm3 (1.96-9.15); NEUTROPHILS PERCENT AUTO 62 % (41-73); Platelet Count 463 K/mm3 (150-400); RDW Coefficient Variation 13.6 % (11.7-14.2); RDW Standard Deviation 49.5 fL (35.1-46.3); Red Blood Cell Count 3.74 M/mm3 (4.30-5.90); White Blood Cell Count 6.69 K/mm3 (4.00-11.30)
[2024-02-12 04:34] LABS: Bun/Creatinine Ratio 19.1 (12.0-20.0); Calcium, Blood 9.1 mg/dL (8.5-10.1); Creatinine, Blood 0.84 mg/dL (0.60-1.20); Magnesium, Blood 2.1 mg/dL (1.6-2.4); Phosphorus, Blood 3.9 mg/dL (2.5-4.9); Potassium, Blood 3.3 mmol/L (3.5-5.5)
[2024-02-12] MEDS ORDERED: Potassium Chl 20MEQ/Water100ML 100 ML IV SCH (04:45)
--- NOTE | 2024-02-12 05:14 | NUR ---
SHIFT SUMMARY PATIENT REMAINS ALERT AND ORIENTED X3, AGITATED AT TIMES EVEN ON PRECEDEX HOWEVER HAS IMPROVED AND ABLE TO SLEEP A LITTLE THROUGH THE NIGHT. SPO2 95% ON 7L VIA NC, STILL SPITTING UP MODERATE AMOUNT OF THICK KERR SPUTUM. TRACH REMAINS PLUGGED. HR SR 70s, BP STABLE. USES URINAL. ABLE TO REPOSITION SELF AND DO OWN ORAL CARE. SITTER REMAINS AT BEDSIDE. REPLACING POTASSIUM THIS AM PER PROTOCOL.
--- NOTE | 2024-02-12 08:00 | NUR ---
Assumed care of pt at 0700. Report received from Shelly MOFFETT. Pt alert. Oriented to self. Confused but calm. Redirectable. Sitter at bedside for safety r/t fall risk and impulsive behavior. SpO2 90% or greater with 7 LPM NC. SR per monitor. BP stable.
[2024-02-12] MEDS ORDERED: Multivitamins 1 Tab PT SCH (11:00)
[2024-02-12] MEDS ORDERED: Acetaminophen 325 MG TABLET PT PRN (13:00)
--- NOTE | 2024-02-12 18:29 | NUR ---
SUMMARY Neuro/Musc: A&O x 2. Answers questions, follows commands, verbalizes needs. Pleasant and cooperative with care. Confused, but redirectable. PERRL. Initially restrained in locked restraints but these were discontinued early this AM. Initially on precedex but this was stopped as well. Pt requested pain meds once this shift. Sitter for safety due to impulsive behavior and recent fall. Pt mobilizes with one person assist. Resp: Lungs coarse t/o. Initially on 7 LPM NC. Titrated to room air. SpO2 90% or greater. Trach changed by Dr Waite to size 6, not cuffed, fenestrated. No inner cannula, capped. Cardiac: SR per monitor. BP stable. No edema. Color, sensation, pulses, capillary refill equal BUE. GI: Good appetite. No BM this shift. Tolerating PO intake well per ST recommendations. : Continent of urine. Skin: Unchanged from initial assessment. Psychosocial: Candice updated by this RN and Chalo updated by charge nurse.
--- NOTE | 2024-02-12 20:27 | NUR ---
ASSUMED CARE AT APPROX 1900 PATIENT IS ALERT AND ORIENTED TO SELF AND FOLLOWING SOME COMMANDS. NEEDS CONSTANT REDIRECTION, IS IMPULSIVE, AND NON-SENSICLE SPEECH AT TIMES. SP02 94% ON RA, COUGHING UP MODERATE AMOUNT OF THICK KERR SPUTUM. TRACH REMAINS PLUGGED. HR SR 90s, BP STABLE. USES URINAL. REPOSITIONS SELF IN BED. ABLE TO DO OWN ORAL CARE. SITTER AT BEDSIDE. CALL LIGHT IN REACH
[2024-02-12] MEDS ORDERED: QUEtiapine Fumarate 50 MG TAB PO SCH (21:00)
[2024-02-13 04:00] VITALS: BP 160/105
[2024-02-13 06:00] VITALS: BP 139/93
--- NOTE | 2024-02-13 06:27 | NUR ---
SHIFT SUMMARY PATIENT REMAINS ALERT AND ORIENTED X2, LESS AGITATION TONIGHT THEN LAST NIGHT, PATIENT ABLE TO SLEEP OFF AND ON AND WAS REDIRECTABLE. SP02 93% ON 2L NC WHILE SLEEPING, RA WHILE AWAKE. HR SR 80s, BP STABLE. DENIES CP/PRESSURE. CONTINENT. REPOSITIONS SELF IN BED. SITTER AT BEDSIDE FOR SAFETY. CALL LIGHT IN REACH.
[2024-02-13 14:00] VITALS: BP 123/94
[2024-02-13 14:55] LABS: Vancomycin, Trough 32.8 ug/mL (5.0-10.0)
[2024-02-13 14:56] LABS: Potassium, Blood 3.4 mmol/L (3.5-5.5)
[2024-02-13] MEDS ORDERED: Potassium Chloride 20 MEQ TabCR PO ONE (15:35)
[2024-02-13 16:00] VITALS: BP 116/81
[2024-02-13] MEDS ORDERED: Vancomycin HCL 1,750 MG in NS 500 ML IV SCH (16:00)
[2024-02-13] MEDS ORDERED: Potassium Chloride 20 MEQ TabCR ONE (16:53)
[2024-02-13] MEDS ORDERED: OxyCODONE HCL 5 MG TAB PO ONE (17:05)
--- NOTE | 2024-02-13 18:01 | NUR ---
SHIFT SUMMARY: Pt slept well throughout the night. He is alert and oriented x 4 today, though quite slow to respond to questions. 2L NC while sleeping. Trach capped all day. He was up to chair several times today and worked with OT and ST. Diet advanced. Fluid balance -474; lasix changed from BID to daily. Large BM. Tolerating PO intake well. PICC line dressing changed; unable to obtain blood return. PRN oxy given twice. Pt seems to be perseverating on pain medication and mentioned saving a dose so he could "take four at one time". He was transferred to PCU status by pulmonology.
[2024-02-13 20:56] VITALS: BP 134/91
--- NOTE | 2024-02-13 21:00 | NUR ---
ASSUMED CARE ASSUMED CARE AT 1900. PT A/O x4, ABLE TO ANSWER QUESTIONS APPROPRIATELY. PT ABLE TO REPOSITION IN BED INDEPENDENTLY. PT ON 2 L N/C, O2 SATS > 90%. CARDIAC MONITORING REFLECTS NSR, HR 70s. SBP 130s. PICC TO [facility]. BED ALARM ON FOR SAFETY.
[2024-02-14] VITALS (7 sets, daily range): BP systolic 113–146; BP diastolic 82–99
[2024-02-14 03:38] LABS: BASOPHILS ABSOLUTE AUTO 0.09 K/mm3 (0.00-0.23); BASOPHILS PERCENT AUTO 1 % (0-2); EOSINOPHILS ABSOLUTE AUTO 0.68 K/mm3 (0.00-0.68); EOSINOPHILS PERCENT AUTO 10 % (0-6); Hematocrit 34.3 % (37.0-53.0); Hemoglobin 11.3 g/dL (13.5-17.5); IMMATURE GRAN ABSOLUTE AUTO 0.03 K/mm3 (0.00-0.10); IMMATURE GRAN PERCENT AUTO 0 % (0-1); LYMPHOCYTES ABSOLUTE AUTO 1.04 K/mm3 (0.84-5.20); LYMPHOCYTES PERCENT AUTO 15 % (21-46); MONOCYTES ABSOLUTE AUTO 0.83 K/mm3 (0.16-1.47); MONOCYTES PERCENT AUTO 12 % (4-13); Mean Corpuscular HGB 31.6 pg (26.0-34.0); Mean Corpuscular HGB Conc 32.9 g/dL (31.5-36.5); Mean Corpuscular Volume 96 fL (80-100); Mean Platelet Volume 10.1 fL (9.1-12.4); NEUTROPHILS ABSOLUTE AUTO 4.51 K/mm3 (1.96-9.15); NEUTROPHILS PERCENT AUTO 63 % (41-73); Platelet Count 443 K/mm3 (150-400); RDW Coefficient Variation 13.6 % (11.7-14.2); RDW Standard Deviation 48.4 fL (35.1-46.3); Red Blood Cell Count 3.58 M/mm3 (4.30-5.90); White Blood Cell Count 7.18 K/mm3 (4.00-11.30)
[2024-02-14 03:53] LABS: Calcium, Blood 8.6 mg/dL (8.5-10.1); Creatinine, Blood 0.92 mg/dL (0.60-1.20); Magnesium, Blood 1.7 mg/dL (1.6-2.4); Phosphorus, Blood 3.7 mg/dL (2.5-4.9); Potassium, Blood 3.4 mmol/L (3.5-5.5)
--- NOTE | 2024-02-14 06:04 | NUR ---
SHIFT SUMMARY NO ACUTE CHANGES THIS SHIFT. PT REMAINS A/O X4, ABLE TO ANSWER QUESTIONS APPROPRIATELY. MEDICATED PT FOR PAIN THIS SHIFT. PT ON 2 L N/C, O2 SATS > 90%. TRACH CARE PERFORMED THIS SHIFT. CARDIAC MONITORING REFLECTS NSR, HR 70s AT THIS TIME. SBP 120s. PT TOLERATED PO FLUIDS THIS SHIFT. PT ABLE TO REPOSITION INDEPENDENTLY IN THE BED. USES URINAL WITH ASSISTANCE.
[2024-02-14] MEDS ORDERED: Potassium Chloride 40 MEQ in NS 250 ML IV ONE (06:15)
--- NOTE | 2024-02-14 07:27 | NUR ---
PROVIDER UPDATE: IV KCL changed to PO. Dr Bella notified of comments pt has been makeing to nursing staff regarding hording pain pills and taking more at one time.
[2024-02-14] MEDS ORDERED: Potassium Chloride 20 MEQ TabCR PO ONE (07:30)
--- NOTE | 2024-02-14 08:00 | NUR ---
TRANSPORT: Pt taken to PCU 9 from ICU via wheelchair. Report given to CURRENCY EXCHANGE SPECIALIST; questions answered.
[2024-02-14] MEDS ORDERED: Furosemide 10 MG / ML 2ML Vial IV SCH (09:00)
[2024-02-14] MEDS ORDERED: Docusate Sodium 100 MG UDC PO PRN (13:46)
[2024-02-14] MEDS ORDERED: Temazepam 15 MG Cap PO PRN (13:47)
[2024-02-14] MEDS ORDERED: OxyCODONE HCL 5 MG TAB PO PRN (13:47)
[2024-02-14] MEDS ORDERED: Acetaminophen 325 MG TABLET PO PRN (13:50)
--- NOTE | 2024-02-14 16:58 | NUR ---
shift summary Pt a&ox3, some mild confusion. Not impulsive. Pleasant. Sp02>90% on ra, 1l nc this am while napping d/t satting high 80's. Pulmonolgy in room this afternoon to remove capped trach. Dressed w/ petroleum gauze and 4x4. Pt tolerated well. Telemetry shows nsr w/ pacs, hr 40's-80's. Pt used urinal at bedside. No bm this shift. Bed bath given. Pt ambulated sba from bed to recliner. Pt's partner, Josey, called, gave update. Pt had friends call, transferred into room and pt spoke with. Pt currently sitting in room watching tv. Call light in reach.
--- NOTE | 2024-02-14 20:56 | NUR ---
ASSUMPTION OF CARE Pt resting in hospital bed, alert and oriented x3, pt disoriented to month only. Pt using call light appropriatley, stand by assist with FWW to bathroom at beginning of shift. Pt reports 8/10 body pain, PRN pain medication provided. Monitor shows sinus rhythm, BP stable. Pt on room air while awake, placed on 2L nasal canula while sleeping, pt declines cpap. Pt denies GI/ issues at this time, tolerates PO intake, meds whole with applesauce. Trach removed today, site with petroleum gauze dressing, gauze and tape, clean dry and intact.
[2024-02-14] MEDS ORDERED: Lactobacil 2-S.Thermo-Bifido 1 1 Cap PO SCH (21:00)
[2024-02-14] MEDS ORDERED: Ezetimibe 10 MG Tab PO SCH (21:00)
[2024-02-14] MEDS ORDERED: Metoprolol Tartrate 25 MG Tab PO SCH (21:00)
[2024-02-15 03:58] LABS: Vancomycin, Trough 4.3 ug/mL (5.0-10.0)
[2024-02-15 04:10] VITALS: BP 107/71
[2024-02-15] MEDS ORDERED: Levothyroxine Sodium 0.1 MG Tab PO SCH (06:00)
[2024-02-15] MEDS ORDERED: Lansoprazole 15 MG TAB.RAP.DR PO SCH (06:00)
--- NOTE | 2024-02-15 06:09 | NUR ---
SHIFT SUMMARY Pt rested well throughout night, remains oriented, vital signs stable on room air while awake. Trach stoma stable and dressing remains clean, dry, intact. Pt declined evening lovenox, discussed with pt this AM importance to taking anticoagulant for PE and pt then agreeable to take doses today. PRN pain medication x1 for pain. Pt tolerating PO intake and swallows pills whole with apple sauce. Pt remains stand by assist for ambulation to restroom.
[2024-02-15 07:52] VITALS: BP 114/94
[2024-02-15] MEDS ORDERED: Folic Acid 1 MG TAB PO SCH (09:00)
[2024-02-15] MEDS ORDERED: Thiamine HCl 100 MG Tab PO SCH (09:00)
[2024-02-15] MEDS ORDERED: Multivitamins 1 Tab PO SCH (09:00)
[2024-02-15] MEDS ORDERED: Atorvastatin 40 MG Tab PO SCH (09:00)
[2024-02-15] MEDS ORDERED: Zinc Sulfate 220 MG Cap (Provides 50MG) PO SCH (09:00)
[2024-02-15 16:31] VITALS: BP 141/90
[2024-02-15] MEDS ORDERED: Ipratropium/Albuterol SulF 2.5-0.5MG/3 ML Amp INH SCH (17:55)
--- NOTE | 2024-02-15 18:34 | NUR ---
SHIFT SUMMARY MEDICAL NO TELE STATUS PATIENT ALERT, ORIENTED x3-4, CAN BE FORGETFUL AT TIMES BUT IS COOPERATIVE WITH CARE AND IS ABLE TO MAKE NEEDS KNOWN. PATIENT ON RA WHILE AWAKE, ON 2L WHILE SLEEPING, SPO2 LOW TO MID 90s. BP STABLE. PATIENT AMBULATING IN ROOM WITH ASSISTANCE, BED ALARM ON D/T FORGETFULNESS. PATIENT USING URINAL AND AMBULATING INTO BATHROOM, ADEQUATE OUTPUT THIS SHIFT. TOLERATING PO. NO OTHER CHANGES THIS SHIFT, WILL REPORT TO HOT ROLL INSPECTOR RN.
[2024-02-15] MEDS ORDERED: Rivaroxaban 10 MG Tab PO SCH (21:00)
[2024-02-15 21:46] VITALS: BP 117/92
[2024-02-16 00:13] VITALS: BP 124/84
--- NOTE | 2024-02-16 06:12 | NUR ---
SHIFT SUMMARY NO ACUTE CHANGES THIS SHIFT. PT A/O x4, MEDICATED FOR PAIN THIS SHIFT. SBA WITH FWW TO BATHROOM. PT ON RA THIS SHIFT, O2 SATS > 90%. BP STABLE THIS SHIFT. PICC TO LOUISE SL.
[2024-02-16 07:51] VITALS: BP 118/77
[2024-02-16 15:45] VITALS: BP 143/81
--- NOTE | 2024-02-16 17:52 | NUR ---
SHIFT SUMMARY; ASSUMED CARE AT 0700. INDEPENDANT IN ROOM WITH SBA. USES CALL LIGHT T/O SHIFT. POSSIBLE DISCHARGE TOMORROW DISCUSSED BY DR. THORNTON. ENCOURAGED ALCOHOL TX PROGRAM BY DES. RESOURCES WILL BE GIVEN. VSS, A/A/OX4, NO ACUTE CHANGES DURING SHIFT. WILL CONTINUE TO MONITOR AND TREAT UNTIL CHANGE OF SHIFT.
[2024-02-16 19:28] VITALS: BP 124/91
[2024-02-16 21:46] VITALS: BP 132/91
--- NOTE | 2024-02-16 22:33 | NUR ---
ADMIT NOTE CALLED PCU AT 2126 AND GOT REPORT FROM BETINA AGEE. PT ARRIVED TO 310 AT 2139. PT PLEASANT AND COOPERATIVE WITH CARE. PT IS INDEPENDENT/STANDBY. PT STS THAT HE IS FEELING SOMEWHAT ANXIOUS ABOUT GOING HOME TOMORROW HE HAS BEEN HERE FOR SO LONG AND HE LIVES ALONE. PT STS HE WILL TALK TO ABOUT THIS IN THE MORNING. PT GIVEN RESTORIL PER EMAR. BED IN LOW POSITION AND PT HAS CALL LIGHT WITHIN HIS REACH. PT STS UNDERSTANDING OF ITS USE. WILL CONTINUE TO MONITOR.
--- NOTE | 2024-02-17 06:18 | NUR ---
SHIFT SUMMARY PT SLEPT MOST OF THE NIGHT. COOPERATIVE WITH CARE. PT WOULD LIKE TO SPEAK TO THE DR TODAY ABOUT HIS ANXIETY WITH GOING HOME. PT SHOULD BE DISCHARGED TODAY. BED IN LOWEST POSITION AND CALL LIGHT IS WITHIN HIS REACH. WILL CONTINUE TO MONITOR.
[2024-02-17 07:37] VITALS: BP 106/65
[2024-02-17] MEDS ORDERED: ACET325 PO (12:46)
[2024-02-17] MEDS ORDERED: FOLI1 PO (12:47)
[2024-02-17] MEDS ORDERED: Lisinopril10 MG PO (12:47)
[2024-02-17] MEDS ORDERED: METO25 PO (12:48)
[2024-02-17] MEDS ORDERED: XARELTO20 MG PO ×2 (12:49→13:26)
[2024-02-17] MEDS ORDERED: OXAYDO5 M2 PO (12:49)
[2024-02-17] MEDS ORDERED: PANT20 PO (12:50)
[2024-02-17] MEDS ORDERED: TEMA15 PO (12:50)
--- NOTE | 2024-02-17 13:27 | NUR ---
DISCHARGE SUMMARY: A&Ox4. PLEASANT AND COOPERATIVE WITH CARE. CALLS APPROPRIATELY AND IS ABLE TO ADVOCATE NEEDS EFFECTIVELY. BANDAGE OF FORMER TRACH SITE CHANGED; THREE SMALL LESIONS WITHOUT S/SX EXUDATE MEASURING AN AREA OF 2cm X 2cm. PICC LINE PULLED; TIP INTACT AND 42cm IN LENGTH. PATIENT LEFT FLOOR VIA WHEELCHAIR ESCORT WITH DISCHARGE PACKET, ALL BELONGINGS AND WOUND CARE SUPPLIES. TRANSPORTATION PROVIDED BY PERSONAL FRIEND.
--- NOTE | 2024-02-17 15:27 | NUR ---
RETURN CALL FOR [facility] TO CLARIFY XARELTO ORDER: 15MG BID x20 DAYS, THEN 15MG QD x6 MONTHS.
== END 2024-02-17 13:13 | disposition home health service (06) | DRG 4 ==
LOC: ER 13:22 → ICUE 17:05 → PCU 17:05 → ICUE 01-15 21:07 → PCU 02-14 07:59 → MEDS 02-16 22:06
PROVIDERS: Emergency Medicine; Family Medicine; Internal Medicine; Internal Medicine Critical Care Medicine; Nurse Practitioner Acute Care; Student in an Organized Health Care Education/Training Program; ADMIT Student in an Organized Health Care Education/Training Program
PROC: HZ2ZZZZ Detoxification Services for Substance Abuse Treatment (ICD-10-PCS; 2024-01-14)
PROC: 4A133R1 Monitoring of Arterial Saturation, Peripheral, Percutaneous Approach (ICD-10-PCS; 2024-01-15)
PROC: 0BH17EZ Insertion of Endotracheal Airway into Trachea, Via Natural or Artificial Opening (ICD-10-PCS; 2024-01-15)
PROC: 5A1945Z Respiratory Ventilation, 24-96 Consecutive Hours (ICD-10-PCS; 2024-01-15)
PROC: 5A09357 Assistance with Respiratory Ventilation, Less than 24 Consecutive Hours, Continuous Positive Airway Pressure (ICD-10-PCS; 2024-01-15)
PROC: 5A1955Z Respiratory Ventilation, Greater than 96 Consecutive Hours (ICD-10-PCS; 2024-01-17)
PROC: 0BH17EZ Insertion of Endotracheal Airway into Trachea, Via Natural or Artificial Opening (ICD-10-PCS; 2024-01-17)
PROC: 03HY32Z Insertion of Monitoring Device into Upper Artery, Percutaneous Approach (ICD-10-PCS; 2024-01-29)
PROC: 4A133B1 Monitoring of Arterial Pressure, Peripheral, Percutaneous Approach (ICD-10-PCS; 2024-01-29)
PROC: 4A133J1 Monitoring of Arterial Pulse, Peripheral, Percutaneous Approach (ICD-10-PCS; 2024-01-29)
PROC: 02HV33Z Insertion of Infusion Device into Superior Vena Cava, Percutaneous Approach (ICD-10-PCS; 2024-01-29)
PROC: 0B21XEZ Change Endotracheal Airway in Trachea, External Approach (ICD-10-PCS; 2024-02-01)
PROC: 0B113F4 Bypass Trachea to Cutaneous with Tracheostomy Device, Percutaneous Approach (ICD-10-PCS; principal; 2024-02-03)
DX: F10.239 Alcohol dependence with withdrawal, unspecified (principal); J96.01 Acute respiratory failure with hypoxia; G93.41 Metabolic encephalopathy; J69.0 Pneumonitis due to inhalation of food and vomit; I26.99 Other pulmonary embolism without acute cor pulmonale; J15.212 Pneumonia due to Methicillin resistant Staphylococcus aureus; J44.1 Chronic obstructive pulmonary disease with (acute) exacerbation; J45.21 Mild intermittent asthma with (acute) exacerbation; J90 Pleural effusion, not elsewhere classified; N40.0 Benign prostatic hyperplasia without lower urinary tract symptoms; K21.9 Gastro-esophageal reflux disease without esophagitis; E78.5 Hyperlipidemia, unspecified; I10 Essential (primary) hypertension; E03.9 Hypothyroidism, unspecified; G47.33 Obstructive sleep apnea (adult) (pediatric); G89.4 Chronic pain syndrome; F17.210 Nicotine dependence, cigarettes, uncomplicated; E87.6 Hypokalemia; I16.0 Hypertensive urgency; F41.9 Anxiety disorder, unspecified; T50.915A Adverse effect of multiple unspecified drugs, medicaments and biological substances, initial encounter; E83.42 Hypomagnesemia; E83.39 Other disorders of phosphorus metabolism; E87.70 Fluid overload, unspecified; D75.838 Other thrombocytosis; J38.4 Edema of larynx; R14.0 Abdominal distension (gaseous); Z71.41 Alcohol abuse counseling and surveillance of alcoholic; Z79.890 Hormone replacement therapy; Z88.8 Allergy status to other drugs, medicaments and biological substances; Z78.1 Physical restraint status
CPT/HCPCS: 31500; 31720; 36415; 36569; 36600; 36620; 51702; 71045; 71260; 74018; 74176; 74177; 74230; 80048; 80053; 80069; 80202; 81001; 82140; 82248; 82330; 82803; 82947; 83690; 83735; 84100; 84132; 84478; 85025; 85027; 85520; 85610; 85730; 87040; 87070; 87077; 87086; 87147; 87185; 87186; 87205; 87493; 92526; 92610; 92611; 93005; 93010; 93306; 94002; 94003; 94640; 94660; 94664; 94667; 94668; 94760; 94762; 96374; 96375; 96376; 97110; 97112; 97116; 97162; 97166; 97530; 97535; 99285-25; A9270; C1751; C9113; J0295; J0330; J0360; J0456; J0696; J1170; J1630; J1644; J1650; J1940; J2060; J2250; J2405; J2543; J2560; J2704; J2765; J2919; J3010; J3360; J3370; J3411; J3475; J3480; J7030; J7040; J7050; J7060; J7120; J7512; P9047; Q9967